=== PATIENT | male | born 1960 | race Caucasian/White ===

== ENCOUNTER 2019-01-13 21:49 | Inpatient (IN) ==
[2019-01-13] MEDS ORDERED: PROTONIX IV ONE (21:58)
[2019-01-13] MEDS ORDERED: NS 1,000 ML IV ONE (21:58)
[2019-01-13] MEDS ORDERED: SODIUM CHLORIDE 0.9% INJ ONE (21:58)
[2019-01-13 22:34] LABS: INR 3.01; PROTIME 32.1 Seconds (11.0-16.0); PTT 30.1 Seconds (22.3-41.8)
[2019-01-13 22:38] LABS: BASO# 0.27 X1000 (0.0-0.2); BASO% 0.7 % (0.0-0.8); EOS# 0.11 X1000 (0.0-0.7); EOS% 0.3 % (0.0-10.0); HEMATOCRIT 15.5 % (42.0-52.0); IMM GRAN# 2.46 X1000 (0.0-0.04); IMM GRAN% 6.6 % (0.0-0.5); LYMPH# 8.42 X1000 (1.2-3.4); LYMPH% 22.7 % (20.5-51.1); MCH 33.6 PG (27-31); MCHC 32.3 g/dL (33-37); MONO# 1.99 X1000 (0.11-0.59); MONO% 5.4 % (1.7-9.3); MPV 9.7 FL (7.4-10.4); NEUT# 23.87 X1000 (1.4-6.5); NEUT% 64.3 % (42.2-75.2); PLT 528 X1000 (130-400); RBC 1.49 XMIL (4.7-6.1); RDW 14.6 % (11.5-14.5); WBC 37.12 X1000 (4.8-10.8)
[2019-01-13] MEDS: PROTONIX 80 MG in NS 80 ML IV SCH (22:50)
[2019-01-13 23:01] LABS: ALB/GLOB RATIO 1.9; CALCIUM 7.9 mg/dL (8.8-10.2); CREATININE 2.1 mg/dL (0.7-1.2); TOTAL BILIRUBIN 0.64 mg/dL (0.20-1.00); TOTAL PROTEIN 4.6 g/dL (6.3-8.3)
[2019-01-13 23:03] LABS: POTASSIUM 6.7 mmol/L (3.5-5.1)
[2019-01-13] MEDS ORDERED: HUMULIN R SUBQ ONE (23:07)
[2019-01-13] MEDS ORDERED: SODIUM BICARBONATE 8.4% IV ONE (23:20)
[2019-01-13] MEDS ORDERED: ZOSYN 3.375 GM in NS 50 ML IV ONE (23:22)
[2019-01-13] MEDS ORDERED: VANCOMYCIN 1 GM/NS 1 GM/250 ML IVPB IV ONE (23:22)
--- NOTE | 2019-01-13 23:40 | PROVIDER DOCUMENTATION ---
This chart was entered by Yennifer Malik Scribe, acting as scribe for Lei Cobb MD. HPI-General Adult - General Chief Complaint: GI Bleed Stated Complaint: GI bleed Time Seen by Provider: 01/13/19 21:56 Source: patient Allergies/Adverse Reactions: Patient Allergies Allergy/AdvReac Type Severity Reaction Status Date / Time heparin Allergy Unknown Verified 01/02/19 22:33 Home Medications: Home Medication List Medication Instructions Recorded Confirmed Last Taken Type Amlodipine Besylate 5 mg PO DAILY 01/02/19 01/02/19 Unknown History Aspirin [Adult Low Dose Aspirin EC] 81 mg PO DAILY 01/02/19 01/02/19 Unknown History Dapagliflozin Propanediol [Farxiga] 10 mg PO DAILY 01/02/19 01/02/19 Unknown History Fenofibrate 54 mg PO DAILY 01/02/19 01/02/19 Unknown History Hydrocodone/Acetaminophen [[place] 1 ea PO TID #6 tab 01/02/19 Unknown Rx 5-325 Tablet] Ketorolac [Toradol] 10 mg PO Q6H PRN PRN #20 tab 01/02/19 Unknown Rx LISINOpril [Prinivil] 20 mg PO DAILY 01/02/19 01/02/19 Unknown History Metformin HCl [Metformin HCl ER] 500 mg PO 4XDAY 01/02/19 01/02/19 Unknown History [place]-3 Fatty Acids/Fish Oil [Fish 1,000 mg PO BID 01/02/19 01/02/19 Unknown History Oil 1,000 mg Capsule] Simvastatin 40 mg PO DAILY 01/02/19 01/02/19 Unknown History Warfarin [Coumadin] 3 mg PO BID 01/02/19 01/02/19 Unknown History - History of Present Illness -Gen Adult Nature of Presenting Problems: pt is a a 58 yr old male presenting via EMS from home, pt reports dark stool x 5 days, increasing weakness and shortness of breath. pt denies prior GI bleed, admits he is currently taking warfarin and ASA daily. EMS reports low Sp02 sat en route Location of Pain/Injury: reports: none Pain Radiation: reports: no radiation Quality of Pain: reports: none Severity: reports: moderate Onset/Duration: reports: 5 days ago Timing: reports: getting worse Context/Activities at Onset: reports: light activity Modifying Factors: improves with: nothing Associated Symptoms: reports: dizziness, fatigue, shortness of breath, weakness, other (dark stools). denies: fever/chills Similar Symptoms Previously?: No Recently seen or treated by another doctor?: Yes Review of Systems - Adult - REVIEW OF SYSTEMS - ADULT Constitutional: reports: fatimigel. denies: chills, fever Eyes: reports: no symptoms reported Ears, Nose, Mouth & Throat: reports: no symptoms reported Cardiovascular: reports: no symptoms reported Respiratory: reports: dyspnea on exertion, shortness of breath Gastrointestinal: reports: rectal bleeding Genitourinary: reports: no symptoms reported Musculoskeletal: reports: no symptoms reported Integumentary: reports: no symptoms reported Neurological: reports: dizziness/vertigo. denies: headache/migraines, syncope Psychiatric: reports: no symptoms reported Endocrine: reports: no symptoms reported Hematologic/Lymphatic: reports: no symptoms reported Allergic/Immunologic: reports: no symptoms reported All Other Systems: Reviewed and Negative Past History - Adult - PAST MEDICAL HISTORY-ADULT Review of Records: reports: Old Records Reviewed, Nursing Assessment Review, Medications Reviewed, Social history reviewed & non-contributory. Major Childhood Illnesses: reports: denies history Cardiovascular: reports: denies history Respiratory: reports: denies history Gastrointestinal: reports: denies history Obstetrical/Gynecological: reports: denies history Genitourinary: reports: denies history Musculoskeletal: reports: denies history Neurological: reports: denies history Endocrine/Immune: reports: denies history Other Conditions: reports: denies history - IMMUNIZATION STATUS Childhood Immunizations: See Nurse Assessment Flu Vaccine: See Nurse Assessment - FAMILY HISTORY Family History: reviewed, not pertinent - SOCIAL HISTORY Smoking: denies Substance Use: alcohol Alcohol Use Frequency: twice a week Living Situation: family Physical Exam-General - PHYSICAL EXAM-ADULT Initial Vital Signs Reviewed: Yes - CONSTITUTIONAL General Appearance: moderate distress, obese, lethargic, slow to respond - EYES Eyes: PERRL/EOMI, pale conjunctivae - HEAD, EARS, NOSE, MOUTH & THROAT HENMT: normocephalic/atraumatic, moist mucous membranes - NECK Neck: non-tender, supple - RESPIRATORY Respiratory: lungs clear, normal breath sounds, increased rate - CARDIOVASCULAR Cardiovascular: normal peripheral pulses, regular rate, rhythm - LYMPHATIC Lymphatic: no adenopathy - MUSCULOSKELETAL Back Exam: normal inspection Extremity: normal range of motion, non-tender, normal inspection - SKIN Integumentary: normal turgor, diaphoresis, pallor - NEUROLOGIC Neurologic: grossly normal, no motor/sensory deficits - PSYCHIATRIC Psych/Mental Status: normal mood/affect, normal thought content, normal thought process, oriented x 3 Progress - PLAN OF CARE/RESULTS Result Diagrams: 01/13/19 22:02 01/13/19 22:02 - EKG 1 Time of EKG reading by physician:: 22:04 EKG Read and Signed by:: Lei Cobb EKG Interpretation (*Must complete 3 of following elements*): Abnormal Rate: 89 Rhythm: nsr [place]: normal QRS: other (abnormal QRS-T angle, consider primary T wave abnormality) Departure - Departure Date of Disposition Decision: 01/13/19 Time of Disposition Decision: 23:36 DIAGNOSIS: JUDAH (acute kidney injury) GI bleed Qualifiers: GI bleed type/associated pathology: melena Qualified Code(s): K92.1 - Melena Anemia Qualifiers: Anemia type: unspecified type Qualified Code(s): D64.9 - Anemia, unspecified DKA (diabetic ketoacidoses) Qualifiers: Diabetes mellitus type: type 2 Diabetes mellitus complication detail: without coma Qualified Code(s): E11.10 - Type 2 diabetes mellitus with ketoacidosis without coma Disposition: ADMITTED INPATIENT 09 Certified Medical Emergency: Emergent Condition: Critical - Critical Care Note This patient required my direct & personal management of CC.: Yes Total Time (mins): 35 Critical Care Statement: This patient required my direct personal management to treat or rule out processes, the absence of which, could potentiallly result in sudden, clinically significant life or limb threatening deterioration. Attestation - Physician/ LEOBARDO Attestation Patient care was provided by Advanced Practice Provider:: No The physician spent face to face time with patient:: Yes Advanced Practice Provider documentation review:: Supervising physician onsite and consulted in the evaluation and care of this patient. The physician did have a face to face encounter with the patient. This chart was documented by the indicated scribe, (Yennifer Malik Scribe) and accurately reflects the services I performed and decisions made by me, Lei Cobb MD, as attested by the provider's signature.
[2019-01-13] MEDS ORDERED: NS 1,000 ML ONE (23:44)
[2019-01-14 00:06] LABS: ACETONE SERUM NEGATIVE (NEGATIVE)
[2019-01-14 00:07] LABS: PHOSPHORUS 9.7 mg/dL (2.7-4.5)
[2019-01-14 00:15] LABS: ALLEN TEST YES; BLOOD TYPE ARTERIAL; METHB 0.8 % (0.0-1.5); O2(CT) 8.5 mL/dL (15.0-23.0); O2HB 95.1 % (95.0-99.0); PCO2(98.6) 27 mmHg (35-45); PO2(98.6) 139 mmHg (60-100); SAMPLE BLOOD; SAO2 98.4 % (95.0-100.0); THB 6.1 g/dL (11.5-17.4)
[2019-01-14 00:19] LABS: LACTATE > 20.00 mmoll (0.44-2.22); MODALITY CANNULA; pH(98.6) < 6.80 (7.35-7.45)
[2019-01-14] MEDS ORDERED: CALCIUM GLUCONATE 1 GM in NS 50 ML IV ONE (01:00)
[2019-01-14] MEDS ORDERED: ALBUTEROL 0.5% INH CONC FOR HYPERKALEMIA INH ONE ×2 (01:01→09:47)
[2019-01-14 01:13] LABS: URINE SOURCE CATH
[2019-01-14 01:17] LABS: BILIRUBIN URINE NEGATIVE (NEGATIVE); BLOOD URINE NEGATIVE (NEGATIVE); COLOR YELLOW; GLUCOSE URINE >1000 mg/dL (NEGATIVE); KETONE URINE NEGATIVE (NEGATIVE); LEUKOCYTES URINE NEGATIVE (NEGATIVE); NITRITE URINE NEGATIVE (NEGATIVE); PH URINE 5.5; PROTEIN URINE NEGATIVE (NEGATIVE); SP GRAVITY URINE 1.021; TURBIDITY URINE CLEAR (CLEAR); UROBILINOGEN URINE NORMAL (NORMAL)
[2019-01-14 01:18] LABS: UR EPITHELIAL CELLS <10 /HPF (<10); URINE BACTERIA NEGATIVE /HPF; URINE RBC <10 /HPF (<10); URINE WBC <10 /HPF (<10)
[2019-01-14] MEDS ORDERED: VITAMIN K 5 MG in NS 50 ML IV ONE (01:25)
[2019-01-14] MEDS ORDERED: NS 1,000 ML IV SCH (01:26)
[2019-01-14] MEDS: LEVOPHED 8 MG in D5 1/2 NS 250 ML IV SCH ×3 (01:39→14:26)
[2019-01-14 01:56] LABS: UR AMPHETAMINES QUAL NONE DETECTED (NONE DETECT); UR BARBITUATES QUAL NONE DETECTED (NONE DETECT); UR BENZODIAZEPIN QUAL NONE DETECTED (NONE DETECT); UR CANNABINOIDS QUAL NONE DETECTED (NONE DETECT); UR COCAINE QUAL NONE DETECTED (NONE DETECT); UR METHADONE QUAL NONE DETECTED (NONE DETECT); UR OPIATES QUAL NONE DETECTED (NONE DETECT); UR OXYCODONE QUAL NONE DETECTED (NONE DETECT); UR PCP QUAL NONE DETECTED (NONE DETECT)
[2019-01-14] MEDS ORDERED: HUMULIN R IV ONE (02:12)
[2019-01-14] MEDS ORDERED: TYLENOL PR PRN (02:12)
[2019-01-14] MEDS ORDERED: SODIUM BICARBONATE 8.4% 100 MEQ in STERILE WATER INJ. 500 ML IV PRN (02:12)
[2019-01-14] MEDS ORDERED: MAGNESIUM SULFATE 2 GM/S.W.I. 2 GM/50 ML IVPB IV PRN (02:12)
[2019-01-14] MEDS ORDERED: D50W SYRINGE IV PRN (02:12)
[2019-01-14] MEDS ORDERED: VANCOMYCIN IV PER PHARMACY MISC SCH (02:12)
[2019-01-14] MEDS ORDERED: D5 NS 1,000 ML IV PRN (02:12)
[2019-01-14] MEDS: HUMULIN R 100 UNIT in NS 100 ML IV SCH ×4 (04:46→17:43)
[2019-01-14] MEDS ORDERED: VANCOMYCIN 1 GM/NS 1 GM/250 ML IVPB IV ONE (05:30)
[2019-01-14] MEDS ORDERED: NS 250 ML ONE (05:49)
[2019-01-14 06:12] LABS: ALLEN TEST YES; BE -21.8 mmoll (-3.0-3.0); BLOOD TYPE ARTERIAL; HCO3-(ACT) 7.9 mmoll (20.0-26.0); METHB 1.5 % (0.0-1.5); O2HB 96.2 % (95.0-99.0); PCO2(98.6) 21 mmHg (35-45); PO2(98.6) 189 mmHg (60-100); SAMPLE BLOOD; SAO2 99.9 % (95.0-100.0); THB 6.3 g/dL (11.5-17.4)
[2019-01-14 06:13] LABS: MODALITY BI PAP; pH(98.6) 7.08 (7.35-7.45)
[2019-01-14] MEDS ORDERED: ZOSYN 3.375 GM in NS 50 ML IV SCH (06:15)
[2019-01-14 06:50] LABS: HEMATOCRIT 17.6 % (42.0-52.0); HEMOGLOBIN 6.4 g/dL (14.0-18.0); MCH 37.9 PG (27-31); MCHC 36.4 g/dL (33-37); MCV 104.1 FL (81-99); PLT 333 X1000 (130-400); RBC 1.69 XMIL (4.7-6.1); RDW 14.3 % (11.5-14.5); WBC 50.67 X1000 (4.8-10.8)
--- NOTE | 2019-01-14 07:03 | Diag Imaging Result Doc PS360 ---
EXAM: CHEST-1 VIEW 01/13/2019 HISTORY: SEPSIS PROTOCOL TECHNIQUE: AP portable at 2323 COMMENT: The inspiration is somewhat suboptimal. There is blunting of the right costophrenic angle which was also present on 04/18/2015 and is presumably due to fibrosis. There is some questionable basilar atelectasis on the right. Otherwise the appearance of the chest has not changed significantly. IMPRESSION: Right lower lobe subsegmental atelectasis. Electronically signed by Isidoro Blevins 01/14/2019 7:01 AM
--- NOTE | 2019-01-14 07:05 | Diag Imaging Result Doc PS360 ---
EXAM: CHEST-1 VIEW 01/14/2019 HISTORY: central line confirmation TECHNIQUE: AP portable at 0315 COMMENT: The inspiration is suboptimal. The appearance of the chest has not changed significantly since 01/13/2019. There is a left internal jugular central venous catheter with its tip in the superior vena cava. IMPRESSION: Stable chest. Electronically signed by Isidoro Blevins 01/14/2019 7:02 AM
[2019-01-14 07:08] LABS: LYMPHS 10 % (21-51); MONO 2 % (1-9); SEGS 82 % (42-75)
--- NOTE | 2019-01-14 07:18 | EKG Report ---
Test Performed on : 01/13/2019 10:04:39 PM Test Reason : ED. NO EKG ORDER FOR MUSE Blood Pressure : / mmHG Vent. Rate : 089 BPM Atrial Rate : 089 BPM P-R Int : 164 ms QRS Dur : 100 ms QT Int : 352 ms P-R-T Axes : 050 058 -09 degrees QTc Int : 428 ms Normal sinus rhythm. Abnormal QRS-T angle, consider primary T wave abnormality Abnormal ECG No previous ECGs available Unconfirmed Result
[2019-01-14] MEDS: PROTONIX 80 MG in NS 80 ML IV SCH ×2 (08:21→17:43)
[2019-01-14 09:04] LABS: INR 2.24; PROTIME 25.4 Seconds (11.0-16.0)
[2019-01-14] MEDS ORDERED: NS 500 ML IV ONE (09:06)
--- NOTE | 2019-01-14 09:06 | HISTORY AND PHYSICAL ---
PRIMARY CARE PHYSICIAN: Dr. Michael Archuleta. CHIEF COMPLAINT: Dark blood in stools for the past 4 days. HISTORY OF PRESENTING ILLNESS: A 58-year-old male with a history of diabetes mellitus type 2, hyperlipidemia, hypertension, coronary disease, and chronic anticoagulation therapy with warfarin who had presented to the emergency department with 4 days history of having dark blood in stools. The patient states that he was getting weak and nauseated at this time. He also noted that his blood glucose was over 600. He was evaluated in the emergency department. He is found to be profoundly anemic and it was also suspected that he was in early DKA and possible sepsis. Due to his presenting symptoms he will require admission to ICU for further management. The patient is somewhat lethargic however he was answering questions. He had denied any headache, chest pain, shortness of breath or any weight changes but complained of dark blood and not feeling well. PAST MEDICAL HISTORY: Include diabetes mellitus type 2, hyperlipidemia, hypertension, coronary disease, chronic anticoagulation. PAST SURGICAL HISTORY: Femoral-femoral bypass, coronary stent. ALLERGIES TO: Heparin. CURRENT MEDICATIONS: Include warfarin 3 mg p.o. b.i.d., simvastatin 40 mg p.o. daily, metformin 500 mg 4 times a day, lisinopril 20 mg p.o. daily, fenofibrate 54 mcg p.o. daily, aspirin 81 mg p.o. daily, Norvasc 5 mg p.o. daily. SOCIAL HISTORY: No history of smoking, alcohol or illicit drug use. FAMILY HISTORY: No history of coronary disease. REVIEW OF SYSTEMS: Fourteen point review of systems is as in HPI. Other systems negative. PHYSICAL EXAMINATION: GENERAL: Cooperative, friendly male. He iss resting more comfortably now. However he seems lethargic. VITAL SIGNS: Temperature 94.4 degrees, pulse 92, respirations 26, blood pressure 89/44. HEENT: Atraumatic, normocephalic. Extraocular movements intact. PERRLA. NECK: No masses. CHEST: Clear to auscultation. CARDIOVASCULAR: Regular rate and rhythm. ABDOMEN: Soft, positive bowel sounds. EXTREMITIES: Trace edema. NEUROLOGIC: He is awake, alert, oriented x2. : No bladder distention. SKIN: Warm. LABORATORIES AND STUDIES: WBC 37.12 hemoglobin 5.1, hematocrit 15.5, platelets 528,000. INR 3.0. Blood gases shows pH of 6.80. Lactate 20. Sodium 127, potassium 6.7, chloride 85, CO2 is 9, BUN is 83, creatinine is 2.1, glucose is 658. ASSESSMENT: This is a 58-year-old male with a history of diabetes mellitus type 2, hyperlipidemia, hypertension, coronary disease, and chronic anticoagulation therapy who had presented to emergency department with 4 days history of having dark blood. The patient states that he was also nauseated during this time, and was having elevated blood glucose. He was evaluated in the emergency department. He was found to be profoundly anemic and also is suspected he was possibly in early DKA and sepsis due to these findings, he will require ICU admission for further management. 1. Probable upper gastrointestinal bleed. 2. Chronic anticoagulation therapy. 3. Diabetes mellitus type 2 with hyperglycemia with suspected early diabetic ketoacidosis. 4. Possible sepsis. 5. Hyperkalemia. 6. Coronary artery disease. PLAN: 1. We will admit patient to ICU. 2. We will keep patient NPO. Continue patient on a PPI. 3. We will give patient 2 units of fresh frozen plasma. 4. We will also start him on blood transfusion. 5. We will consult Gastroenterology. 6. We will put patient on insulin drip per DKA protocol. 7. We will check blood cultures, urine cultures. Start patient on IV antibiotics. 8. The patient was treated with calcium gluconate and albuterol nebs in the EMERGENCY DEPARTMENT. Will monitor his potassium. 9. The patient's condition is guarded. 10. We will put him on DVT prophylaxis with SCDs. 11. We will continue to follow and reassess. Make further recommendation based on his clinical course. cc: Chris Raman MD
[2019-01-14] MEDS ORDERED: SODIUM BICARBONATE 8.4% 150 MEQ in STERILE WATER INJ. 1,000 ML IV SCH (09:15)
[2019-01-14] MEDS ORDERED: VITAMIN K SUBQ ONE (09:15)
[2019-01-14 09:40] LABS: ALB/GLOB RATIO 1.8; ALBUMIN 3.1 g/dL (3.5-5.0); CALCIUM 7.3 mg/dL (8.8-10.2); CREATININE 2.8 mg/dL (0.7-1.2); MAGNESIUM 2.2 mg/dL (1.5-2.7); PHOSPHORUS 7.7 mg/dL (2.7-4.5); TOTAL BILIRUBIN 0.48 mg/dL (0.20-1.00); TOTAL PROTEIN 4.8 g/dL (6.3-8.3)
[2019-01-14 09:43] LABS: POTASSIUM 6.5 mmol/L (3.5-5.1)
[2019-01-14] MEDS: NS 1,000 ML IV SCH ×2 (09:43→16:47)
[2019-01-14] MEDS ORDERED: CALCIUM GLUCONATE 4.65 MEQ in NS 50 ML IV ONE (09:46)
[2019-01-14] MEDS ORDERED: MARCAINE 0.25% PF/EPI 1:200,000 ONE (10:31)
[2019-01-14] MEDS ORDERED: LR 0 ML ONE (10:31)
[2019-01-14] MEDS: SODIUM BICARBONATE 8.4% 150 MEQ in STERILE WATER INJ. 1,000 ML IV SCH (10:59)
[2019-01-14] MEDS ORDERED: AMIDATE ONE (10:59)
[2019-01-14] MEDS ORDERED: ZEMURON ONE (11:26)
[2019-01-14] MEDS ORDERED: VERSED ONE ×3 (11:34→12:23)
--- NOTE | 2019-01-14 11:56 | PROVIDER PROGRESS NOTE ---
Progress Note Chief complaint: I started having dark stools. HPI: Mr. Vergara is a 58-year-old white male with a past medical history of type two diabetes, hyperlipidemia, hypertension, coronary artery disease requiring bypass and stents and takes Coumadin and aspirin daily. On January 02 he fell while playing in the yard with his granddaughter. He had extreme pain to his left leg for which he went to the emergency department. He was sent home on pain medication and a non-steroidal. Home medications indicate it was toradol and [place]-5. Approximately four days later he developed dark tarry stools and extremely elevated blood sugars. He went to his primary, Dr. Michael Archuleta, on that following January 06. He was told to stop taking the medicines given in the ED and just use rest/ice for his left leg pain. His symptoms progressed to dizziness, weakness, and shortness of breath on top of the dark stools and elevated blood sugars that led him to come to the ED last night. His presenting blood sugar was 658, Potassium 6.7, Creatinine 2.1, hemoglobin 5, and WBC 37. He was given calcium gluconate and albuterol nebulizer treatments in the ED. Past medical history: diabetes mellitus type two, hyperlipidemia, hypertension, coronary artery to say is, chronic anticoagulation therapy. Past surgical history: femoral bypass, coronary stents. Social history: patient lives with his , denies any alcohol, tobacco, or illicit drug use. Family history: noncontributory. Allergies: Heparin Home medications: Amlodipine, aspirin, farxiga,fenofibrate,lisinopril, Metformin, fish oil, Simvastatin, warfarin. Review of systems: neurological: denies altered mental status or confusion. Admits to dizziness. Eyes: denies blurriness, dryness, or change in visual acuity. ENT: denies tinnitus or change in hearing. Integumentary: denies any erythema, rash, or itching. Respiratory: admits to shortness of breath. Denies orthopnea or cough. Cardiovascular: denies palpitations or chest pain. G.I.: Admits to nausea without vomiting, admits to black tarry stool and abdominal pain. : admits to increased flow, no change in color or odor. Endocrine: Admits to excessive thirst and hunger. Musculoskeletal: admits to increased weakness. Admits to left lower extremity pain. Labs: WBC 50, hemoglobin 6.4, hematocrit 17.6, platelet count 333, PT 25.4, sodium 133, potassium 6.5, chloride 96, carbon dioxide 13, BUN 97, creatinine 2.8, glucose 640, AST 1353, ALT 957, total protein 4.8, plasma lactate 19.8 Urinalysis: >1000 glucose, negative acetone. ABG: pH 7.08, PC02 21, P02 189, HCO3 7.9, lactate 12.3 on CPAP 40%. Imaging: chest x-ray impression right lower lobe subsegmental atelectasis. Physical Exam: temperature 99.1, pulse 113, respirations 26, blood pressure 103/50, 02 sat 100% on Venturi mask. General: Ill appearing, drowsy, white male lying in bed in no acute distress HEENT: Normocephalic, atraumatic. Trachea midline. Pale conjunctiva. Pupils equal and reactive to light. Mucous membranes dry. Skin: warm and dry. Neck: Supple, 6 cm JVD appreciated. Cardiovascular: S1S2, tachycardia rate and rhythm. No murmur or gallop noted. Respiratory: clear to auscultation anteriorly with equal air excursion. Abdomen: soft, obese, tenderness noted the upper middle portion of his abdomen. No bowel sounds auscultated. : non-inspected. Extremities: no clubbing or cyanosis. 1+ pitting edema to the left lower extremity on injured leg. Neurological: drowsy and oriented to person, place, and general time. Assessment and plan: Acute kidney injury. JUDAH vs prerenal state. He likely has a GI bleed and possible ischemic bowel, possible acute pancreatitis. Will perform renal u/s, urine studies. Agree with volume resuscitation. Acidosis. Concern for metformin intoxication given severe lactic acidosis. If not improving, will need dialysis. Blood pressure. Currently getting levophed to maintain MAP. Anemia. Orders for PRBC and FFP in place. Metabolic acidosis. Likely because of G.I. illness. Acetone level is negative. He is receiving sodium bicarbonate IV. Will repeat acetone level. Hyperkalemia. He is on an insulin drip and has albuterol ordered. Will purge gut if appropriate. Acute pancreatitis. Surgery and GI on board. Volume status. Euvolemic on exam. Medication review. Continue to hold nephrotoxic agents. He is on an insulin gtt and albuterol nebulizers.
--- NOTE | 2019-01-14 12:28 | PROGRESS NOTE ---
DATE: 01/14/2019 SUBJECTIVE: This patient is lying in bed. He is complaining of abdominal pain and generalized weakness. He is still having some dry cough. As per the patient, he has been having black stools with some liquid bowel movements for the past 5 days or so. As per the who is at the bedside, this patient also was complaining of generalized weakness and dizziness at home. Apparently, yesterday, he started having also some confusion so she decided to bring him to the emergency department. His white blood cell count was elevated at 37.1 upon admission and now it is 50. His hemoglobin improved after 1 PRBC from 5 to 6.4 and is pending more PRBCs. His INR is elevated and he is getting some FFP. Also, he received vitamin K. He received 5 of vitamin K yesterday. I will give him 5 more. Blood sugar is really elevated. High white blood cell count, abdominal pain, lactic acidosis is really high at 19.8. He is having hypoxemic respiratory failure. He does have a history of peripheral vascular disease and actually he had 2 femorals bypasses placed before. This information has been provided by the . We are asking for records. There is a really high possibility of ischemic colitis on this patient. Gastroenterology department has been consulted and they have evaluated this patient already. I will continue with antibiotics. I will stop the vancomycin. I will continue only with Zosyn which I believe is going to cover his abdominal problem. I will continue with transfusions and FFPs as well. This patient is remarkably sick. OBJECTIVE: Vital Signs: Temperature 98.8 degrees, pulse 104, respiratory rate 28, blood pressure 89/39, oxygen saturation 100% on the Venturi mask at this moment. HEENT: Head normocephalic. No trauma. PERRLA. Neck: Supple. No JVD. No masses. Central trachea. Chest: Decreased breath sounds globally with coarse sounds. Abdomen: Soft. Slightly distended. Generalized tenderness to palpation. He does have some positive sounds. His abdomen is tender, mostly at the level of the upper abdomen and left area. Extremities: No edema, no clubbing, no cyanosis. Neurological Examination: The patient is awake. He is alert. He is following commands. He is answering my questions. Laboratory: WBCs 50.6, hemoglobin 6.4, hematocrit 17.6, platelets 333,000. CMP from yesterday pending. Lab work today, sodium 127, potassium 6.7, chloride 85, bicarbonate 9, BUN 83, creatinine 2.1, glucose 658, calcium 7.9, magnesium 2.6, albumin 3. Lipase is elevated at 173 and plasma lactate today is 19.8. Urinalysis showed glucose. PT 25.4, INR 2.24. ASSESSMENT AND PLAN: 1. Septic shock. This patient has been placed on antibiotics. He is on vasopressors, fluids as well. I will add bicarbonate drip since this patient's bicarb level is really low. I will continue to monitor this patient in the intensive care unit. 2. Metabolic acidosis due to septic shock, acute kidney injury. His bicarbonate level on the arterial blood gases today in the morning was 7.9. I have placed this patient on the bicarbonate drip, pending CMP today. I will monitor this patient closely. 3. Possible ischemic colitis. I do believe this is the source of the problem. He has been having black stools for the past 5 days and abdominal pain as well. He has a past medical history of arterial disease. Actually, he had, apparently, some femoral bypass done before. Surgery department will be consulted. We have not done any kind of images because this patient is on pressors, Ventimask, and drips, and he is unstable but probably, we need to get it. He is also having acute kidney injury but we do not have any records from previous kidney function before. 4. Hyperglycemic state. He has been placed on an insulin drip. We will continue with the same management for now. 5. Hyperkalemia. I do not have a new potassium level today. I asked for a CMP, pending results. I will monitor. 6. Hyponatremia, likely secondary to increase of his blood sugar. This is likely pseudohyponatremia but we will monitor anyway. 7. Gastrointestinal bleed, likely secondary to ischemic colitis. This patient has been on warfarin for at least 5 or 6 years and, on top of that, aspirin. Both have been stopped. He has been getting fresh frozen plasma. This is likely due to ischemic colitis. 8. History of coronary artery disease. No chest pain at this moment. 9. Acute hypoxemic respiratory failure with multiorgan failure. We will continue with oxygen supplementation. He used to be on a BiPAP machine. Now, he is on a Ventimask. We will continue to monitor. I have requested an evaluation by the pulmonary department. 10. Chronic anticoagulation. His INR has been therapeutic but we need to decrease it. He is getting fresh frozen plasma and also vitamin K. 11. I discussed with the patient and the at the bedside his advanced directives. We discussed this for about 15 minutes. Also, while I was checking the patient and making the orders, I spent on my evaluation around 45 minutes. He has decided to be Full Code. 12. Critical care time, 45 minutes plus 50 minutes of advance directive. 13. This patient seems to be remarkably sick. I notified this to the patient and also to the . Gastroenterology department, pulmonary department, nephrology department, and surgery department on board. cc: Venkatesh Duffy MD
[2019-01-14 12:36] LABS: HEMATOCRIT 21.7 % (42.0-52.0); HEMOGLOBIN 7.2 g/dL (14.0-18.0); MCH 31.7 PG (27-31); MCHC 33.2 g/dL (33-37); MCV 95.6 FL (81-99); MPV 9.6 FL (7.4-10.4); RBC 2.27 XMIL (4.7-6.1); RDW 13.9 % (11.5-14.5); WBC 29.57 X1000 (4.8-10.8)
[2019-01-14 12:38] LABS: INR 1.92; PROTIME 22.5 Seconds (11.0-16.0)
[2019-01-14 12:39] LABS: PTT 30.4 Seconds (22.3-41.8)
[2019-01-14 13:01] LABS: ALB/GLOB RATIO 2.1; ALBUMIN 3.1 g/dL (3.5-5.0); CALCIUM 7.1 mg/dL (8.8-10.2); CREATININE 3.3 mg/dL (0.7-1.2); POTASSIUM 4.6 mmol/L (3.5-5.1); TOTAL BILIRUBIN 0.34 mg/dL (0.20-1.00); TOTAL PROTEIN 4.6 g/dL (6.3-8.3)
[2019-01-14] MEDS: SORBITOL PO SCH ×2 (13:37→18:16)
--- NOTE | 2019-01-14 13:44 | Diag Imaging Result Doc PS360 ---
EXAM: CHEST-PORTABLE 01/14/2019 HISTORY: tube placement TECHNIQUE: AP portable chest and abdomen at 1326 COMMENT: There is an endotracheal tube with its tip just below the thoracic inlet and a NG tube with its tip coiled in the stomach. The inspiration is suboptimal. There is ill-defined opacity over the left lower lobe which has worsened since 01/14/2019 at 0315. There is gas throughout much of the small bowel with dilatation. There is a possibility of colonic gas. IMPRESSION: NG tube in the stomach. Atelectasis versus pneumonia left lower lobe. Ileus versus partial small bowel obstruction. Electronically signed by Isidoro Blevins 01/14/2019 1:41 PM
[2019-01-14] MEDS: ZOSYN 3.375 GM in NS 50 ML IV SCH ×2 (13:48→20:54)
[2019-01-14 13:57] LABS: ALLEN TEST NO; BE -10.8 mmoll (-3.0-3.0); BLOOD TYPE ARTERIAL; HCO3-(ACT) 16.5 mmoll (20.0-26.0); O2(CT) 12.5 mL/dL (15.0-23.0); O2HB 96.9 % (95.0-99.0); PO2(98.6) 332 mmHg (60-100); SAMPLE BLOOD; SRATE 12 BPM; THB 8.5 g/dL (11.5-17.4); TVOL 500 mL
[2019-01-14 14:02] LABS: MODALITY VENTILATOR
[2019-01-14] MEDS: ATIVAN IV PRN ×2 (14:02→17:11)
[2019-01-14] MEDS: MORPHINE IV PRN ×2 (14:02→23:52)
[2019-01-14 14:04] LABS: PCO2(98.6) 52 mmHg (35-45); pH(98.6) 7.14 (7.35-7.45)
[2019-01-14 15:07] LABS: ALLEN TEST NO; BE -8.9 mmoll (-3.0-3.0); BLOOD TYPE ARTERIAL; METHB 1.4 % (0.0-1.5); O2(CT) 11.3 mL/dL (15.0-23.0); O2HB 96.1 % (95.0-99.0); PCO2(98.6) 43 mmHg (35-45); PO2(98.6) 141 mmHg (60-100); SAMPLE BLOOD; SAO2 99.2 % (95.0-100.0); SRATE 18 BPM; THB 8.1 g/dL (11.5-17.4); TVOL 500 mL; pH(98.6) 7.23 (7.35-7.45)
[2019-01-14 15:12] LABS: MODALITY VENTILATOR
--- NOTE | 2019-01-14 17:16 | Diag Imaging Result Doc PS360 ---
EXAM: US RENAL 2 (RETROPER) COMPLETE - 01/14/2019 HISTORY: decreased renal function TECHNIQUE: Bilateral renal ultrasound COMPARISON: None. FINDINGS: The right kidney measures 11.4 x 5.6 x 6.7 cm in size, and has cortical thickness of approximately 1.3 cm. The left kidney measures 11.2 x 6.8 x 6.6 cm in size, increased cortical thickness of approximately 1.3 cm. There is a questionable 0.8 cm right renal cyst. There is no solid renal mass, stone, or hydronephrosis identified. There is an echogenic structure which presumably represents [place] catheter in urinary bladder. Otherwise, there is no urinary bladder lesion identified. IMPRESSION: Questionable tiny right renal cyst. No other visible renal abnormality. No hydronephrosis. Electronically signed by Shad Buckley 01/14/2019 5:14 PM
[2019-01-14 17:26] LABS: URINE SOURCE CATH
[2019-01-14 17:34] LABS: BILIRUBIN URINE NEGATIVE (NEGATIVE); BLOOD URINE MODERATE (NEGATIVE); COLOR YELLOW; GLUCOSE URINE >1000 mg/dL (NEGATIVE); KETONE URINE NEGATIVE (NEGATIVE); LEUKOCYTES URINE NEGATIVE (NEGATIVE); NITRITE URINE NEGATIVE (NEGATIVE); PH URINE 5.5; PROTEIN URINE TRACE mg/dL (NEGATIVE); SP GRAVITY URINE 1.014; TURBIDITY URINE HAZY (CLEAR); UROBILINOGEN URINE NORMAL (NORMAL)
[2019-01-14 17:37] LABS: UR EPITHELIAL CELLS <10 /HPF (<10); URINE BACTERIA NEGATIVE /HPF; URINE RBC 20-40 /HPF (<10); URINE WBC <10 /HPF (<10)
[2019-01-14 17:43] LABS: UR CREAT RANDOM 46.4 mg/dL (14-26)
[2019-01-14 18:00] LABS: URINE CASTS NONE SEEN; URINE CRYSTALS NONE SEEN; URINE SMALL ROUND CELLS TRANS PRESENT; URINE YEAST NONE SEEN
[2019-01-14 18:34] LABS: HEMATOCRIT 21.5 % (42.0-52.0); HEMOGLOBIN 7.6 g/dL (14.0-18.0)
--- NOTE | 2019-01-14 18:47 | GENERAL SURGERY CONSULTATION ---
DATE: 01/14/2019 REQUESTING PHYSICIAN: Dr. Olson and Dr. Moody. REASON FOR CONSULT: Ischemic bowel. HISTORY OF PRESENT ILLNESS: A 58-year-old gentleman, with a history of diabetes mellitus type 2, hyperlipidemia, hypertension, coronary artery disease, chronic anticoagulation therapy on warfarin, and previous fem-fem bypass, presenting with a several day history of abdominal pain and dark tarry stool for 4 days. He came to the emergency department for getting nauseated and weak and with abdominal pain. He was noted to have a significant leukocytosis and possible DKA with sepsis, and several other electrolyte abnormalities. He has been admitted. His white blood cell count has continued to climb and his lactic acid has continued to increase, and there is some concern that he might have ischemic bowel given his abdominal pain and his overall presentation. Overall issue and underlying etiology have not been determined. He is not a candidate right now, given the fact he is on pressors and has acute kidney injury, to go get a CT scan. He is reporting abdominal pain. PAST MEDICAL HISTORY: 1. Diabetes mellitus type 2. 2. Hyperlipidemia. 3. Hypertension. 4. Coronary artery disease. 5. Chronic anticoagulation. PAST SURGICAL HISTORY: 1. Fem-fem bypass. 2. Coronary artery stents. ALLERGIES: Heparin. CURRENT MEDICATIONS: Of note, he had previously been on warfarin. The remainder of his list reviewed. SOCIAL HISTORY: No alcohol, tobacco, or illicit drugs. FAMILY HISTORY: No family history of coronary artery disease. REVIEW OF SYSTEMS: A full 14 systems were reviewed and negative except as specified in HPI. PHYSICAL EXAMINATION: Vital Signs: Patient is currently with temperature 97.2 degrees, pulse in the 100s, respiratory rate listed at 26, blood pressure 102/52 on Levophed. General: Chronically ill gentleman, looks stated age. HEENT: Normocephalic, atraumatic. Pupils equal, round, reactive to light. Mucous membranes moist. Oropharynx benign. Neck: Supple. Trachea midline. Cardiovascular: Sinus tachycardia. Lungs: Some coarse sounds. Abdomen: Soft, somewhat diffuse tenderness, but more tenderness in the right lower quadrant. Extremities: Moves all extremities. Neurologic: Grossly intact. Skin: No signs of jaundice. Vascular: All extremities perfused. LABORATORY: White blood cell count is 50, hematocrit 17, platelet count 333,000. INR 2.24. PH 7.08, base deficit 21, lactic acid 12.3. Sodium is 133, potassium is 6.5, glucose 640. Plasma lactate on a BMP is 19.8. IMAGING: Reviewed. ASSESSMENT AND PLAN: A 58-year-old gentleman with sepsis with end-organ injury, possibly related to intra-abdominal process and ischemic bowel. 1. Possible intra-abdominal process. At this time, given these findings and the concern, we will plan on diagnostic laparoscopy, possible exploratory laparotomy today. I discussed with the family the overall risks, benefits, and alternatives of the procedure, that he may remain on the ventilator, that we might not find anything intra-abdominally, that we may have to resect the bowel. This was all discussed with the family and the patient. They want to proceed. 2. Multiple electrolyte abnormalities and other underlying issues, to be managed by the hospitalist. There is a chance he remains on the ventilator after the procedure. cc: Jef Munoz MD
[2019-01-14] MEDS: ATIVAN 20 MG in NS 190 ML IV SCH (19:44)
--- NOTE | 2019-01-14 21:10 | OPERATIVE NOTE ---
PROCEDURE DATE: 01/14/2019 PREOPERATIVE DIAGNOSES: 1. Abdominal pain. 2. Gastrointestinal bleed. 3. Hypotension. 4. Possible ischemic bowel. 5. Diabetic ketoacidosis. 6. Sepsis with end-organ damage. POSTOPERATIVE DIAGNOSES: 1. Abdominal pain. 2. Gastrointestinal bleed. 3. Hypotension. 4. Possible ischemic bowel. 5. Diabetic ketoacidosis. 6. Sepsis with end-organ damage. 7. Gastric ulcer noted on esophagogastroduodenoscopy and old blood in the stomach with possible low-flow ischemia to the duodenum, not full thickness. PROCEDURE: Diagnostic laparoscopy. SURGEON: Jef Munoz MD SPRUE KNOCKER: None. ANESTHESIA: General tracheal. INTRAOPERATIVE FINDINGS: The small bowel that was visualized, which was the majority of the small bowel, appeared to be viable all the way to essentially the ligament of Treitz. The visualized portions of the colon were normal. We were able to visualize the descending colon and the splenic flexure and the cecum and ascending colon down to the rectum. There were the typical watershed areas. The stomach appeared to be viable. The liver appeared to be normal. All other parts of the abdomen appeared to be normal grossly. COMPLICATIONS: None at time of dictation. ESTIMATED BLOOD LOSS: 5 mL. SPECIMENS REMOVED: None. BRIEF HISTORY: A 58-year-old gentleman who was admitted with black tarry stools, hypotension, abdominal pain, GI bleed and potential for ischemic bowel given the elevated lactic acid. We had an extensive discussion with him and the family and they want to proceed with diagnostic laparoscopy. The risks, benefits, and alternatives were discussed. Risks included, but not limited to bleeding, infection, risk of on the operating room table, risk of not find anything intra-abdominally were discussed. They voiced understanding and wished to proceed with the procedure still knowing these risks. All questions were answered. DESCRIPTION OF PROCEDURE: After informed consent was obtained, the patient was brought to the operative theater, transferred to the operative table, placed supine position. General endotracheal anesthesia was then performed without complication. A formal time-out was then performed confirming patient, date, and procedure. All were in agreement. At that time, attention was given to the abdomen. We placed a supraumbilical incision and placed a 5 mm trocar using the Optiview technique. We then placed 3 more 5 mm trocars, 1 on each side of the abdomen and then 1 infraumbilically. We inflated the abdomen. I viewed the abdomen. About the time we started insufflating, anesthesia noted a significant amount of old blood coming out of his mouth. I had an intraoperative consult with Dr. Moody who had seen the patient previously and requesting him to come to do an EGD. While we waited for the EGD equipment and Dr. Moody to arrive, we ran the small bowel as best we could. His body habitus did make viewing the entire GI tract somewhat difficult, but we were able to view essentially from just distal to the ligament of Treitz down to the ileocecal valve. I was able to see the ascending colon and the descending colon, and parts of the splenic flexure. None of these bowels appeared to be ischemic from the serosal side. Appeared to have some old blood in the lumen that I could see. The omentum appeared viable. The mesentery appeared viable. The gallbladder and the liver appeared viable. The stomach appeared to be viable, but distended. I did not see any obvious pathology. At this time, Dr. Moody came into the operating room. He inserted the EGD scope. To see the full details of his dictation, please see his dictation. He did notice a ulcer on the greater curvature of the stomach that showed signs of potentially previously bleeding, but no active signs of bleeding. There was a significant amount of old blood noted in his stomach, which he suctioned out. He then inserted into the duodenum and saw a dusky looking duodenum. He suctioned out the blood. He took biopsies in the duodenum. It appeared to bleed from the mucosa suggesting at least some degree of flow. He evacuated all the old blood, cauterized the ulcer and removed the scope. I then reexamined back to the ligament of Treitz and did not see any signs of gross ischemia on the serosal side of the bowel. Given this and the thought that we might need to resuscitate him more for the GI bleed and correct his electrolyte abnormalities with his diabetic ketoacidosis, I elected not to converted to an exploratory laparotomy and elected to end my procedure and let us continue to monitor him and evaluate him. We removed all trocars, disconnected insufflation, and closed all skin incisions. The patient remained intubated, was still critical, and was transferred to the ICU. I updated Dr. Olson, who is the hospitalist seeing the patient. cc: Jef Munoz MD
[2019-01-14] MEDS: ZYVOX 600 MG/D5W 600 MG/300 ML IVPB IV SCH (22:41)
--- NOTE | 2019-01-14 23:30 | CONSULTATION ---
DATE OF CONSULTATION: 01/14/2019 REQUESTING PHYSICIAN: Venkatesh Duffy MD. REASON FOR CONSULTATION: Respiratory failure. HISTORY OF PRESENT ILLNESS: This is a 58-year-old male with a medical history of diabetes mellitus type 2, hyperlipidemia, hypertension, coronary artery disease, and chronic anticoagulation. He presented to the ER last night via EMS with dark stool for 5 days, worsening weakness and shortness of breath. Initial lab revealed significant leukocytosis with white blood cells 47.12; significant anemia with hemoglobin 5.0 and hematocrit 15.5; Elevated PT at 32.1; Electrolyte abnormality specifically with potassium 6.7; hypoglycemia with plasma glucose at 658; and acute kidney injury with BUN at 83 and creatinine at 2.1. Initial chest x-ray revealed right lower lobe subsegmental atelectasis. He has been admitted to the ICU with probable upper GI bleed, possible sepsis, hyperkalemia and hyperglycemia. He, apparently, underwent a GI surgery this morning although the formal surgical report has not been posted yet. The nurse reports he has gastric ulcer with about 2 L of blood aspirated during the procedure. He was sent back to the ICU intubated and sedated after the surgery. Currently, patient has been back from the operating room about 1/2 hour. His eyes are still covered with tape. He is on the insulin drip and Levophed drip. He is completely sedated and unresponsive to any verbal or physical stimuli. There is no family at the bedside. All other information is collected from the E-chart. PAST MEDICAL/SURGICAL HISTORY: 1. Diabetes mellitus type 2. 2. Hyperlipidemia. 3. Hypertension. 4. Coronary artery disease. 5. Chronic anticoagulation, apparently, taking warfarin and aspirin daily at home. 6. Status post femorofemoral bypass. 7. Status post coronary stent. SOCIAL HISTORY: Per H and P, the patient has no history of alcohol, tobacco, or illicit drug use. FAMILY HISTORY: Per H and P, no history of coronary disease. ALLERGIES: Heparin. REVIEW OF SYSTEMS: Unable to be obtained. PHYSICAL EXAMINATION: Vital Signs: Temperature 99.1 degrees, blood pressure 151/77, pulse 120, respiratory rate 24, oxygen saturation 100% on AC mechanical ventilator with spontaneous rate 12, FiO2 100%, tidal volume 500 and PEEP 5. General: Intubated and sedated. No acute distress noted. Eyes covered with tape bilaterally. Unresponsive to any verbal or physical stimuli. HEENT: Normocephalic. Trachea midline. ET tube in place. Mucus membrane pink and moist. Respiratory: Mechanical ventilated. Symmetrical excursion. Clear to auscultation bilaterally. Cardiovascular: Sinus tachycardia with regular rate and rhythm. Gastrointestinal: Several dry, clean and intact dressings on abdominal surgical sights. Soft, distended. Hypoactive bowel sounds in all 4 quadrants, especially on the left lower quadrant. Extremities: Trace pedal edema. No cyanosis. No clubbing. Dorsalis pedis diminished bilaterally. Neurologic: Sedated, unresponsive to any verbal or physical stimuli at this time. LAB DATA: White blood cell 29.57, hemoglobin 7.2, hematocrit 21.7, platelet 219,000. Sodium 133, potassium 4.6, chloride 98, carbon dioxide 16, BUN 96, creatinine 3.3. Glucose 543, AST 2055, ALT 1014, albumin 3.1. ABG, pH 7.14, pCO2 of 52, PO2 of 332, HCO3 of 16.5, base excess -10.8, oxyhemoglobin 96.9, and lactate 3.40 on AC mechanical ventilator with spontaneous rate 12, FiO2 100%, tidal volume 500 and PEEP 5. IMAGING DATA: Chest x-ray at 1426 hours today revealed atelectasis versus pneumonia, left lower lobe ileus versus partial small-bowel obstruction. ASSESSMENT: This is a 58-year-old male with a medical history of diabetes mellitus type 2, hyperlipidemia, hypertension, coronary artery disease, chronic anticoagulation. He has been admitted since yesterday with probable upper gastrointestinal bleed, hyperglycemia, possible sepsis, hyperkalemia, and acute kidney injury. 1. Acute respiratory failure. The patient was intubated and sedated for the GI procedure by Dr. Munoz. He currently just returned from the operating room for about 30min. He remained intubated and sedated. 2. Atelectasis versus pneumonia, left lower lobe. 3. Possible sepsis. 4. Hyperglycemia. 5. Worsening chronic kidney disease. 6. Electrolyte abnormality. 7. Elevated liver function tests. PLAN: 1. Continue AC mechanical ventilator. 2. Start sedation with Ativan 2 mg every 2 hours as needed and morphine 4 mg every 4 hours as needed; will progress to Ativan drip if needed. 3. Continue Levophed as needed. Continue antibiotics. 4. Follow up with ABG, CBC, CMP, chest x-ray and blood cultures. 5. Dr. Mckeon, Dr. Moody and Dr. Munoz are on board. 6. Further recommendations pending hospital course. Thank you for the courtesy of this consult. Dictated by ANDI Suazo for Gracie Guerra MD cc: ANDI Suazo MD [facility]
[2019-01-15 01:10] LABS: HEMATOCRIT 22.9 % (42.0-52.0); HEMOGLOBIN 7.5 g/dL (14.0-18.0)
[2019-01-15] MEDS: SORBITOL PO SCH ×4 (01:41→18:06)
[2019-01-15] MEDS: LEVOPHED 8 MG in D5 1/2 NS 250 ML IV SCH ×2 (02:21→13:26)
[2019-01-15] MEDS: ZOSYN 3.375 GM in NS 50 ML IV SCH ×3 (03:33→20:16)
[2019-01-15 04:34] LABS: ALLEN TEST YES; BE -3.9 mmoll (-3.0-3.0); BLOOD TYPE ARTERIAL; HCO3-(ACT) 21.9 mmoll (20.0-26.0); METHB 1.2 % (0.0-1.5); O2(CT) 13.9 mL/dL (15.0-23.0); O2HB 96.2 % (95.0-99.0); PCO2(98.6) 40 mmHg (35-45); PO2(98.6) 160 mmHg (60-100); SAMPLE BLOOD; SAO2 98.8 % (95.0-100.0); SRATE 18 BPM; TVOL 500 mL; pH(98.6) 7.34 (7.35-7.45)
[2019-01-15 04:36] LABS: MODALITY VENTILATOR
--- NOTE | 2019-01-15 05:15 | GASTROENTEROLOGY CONSULTATION ---
DATE: 01/14/2019 REASON FOR CONSULTATION: Dr. Olson. REASON FOR CONSULTATION: Acute GI bleed and anemia secondary to gastrointestinal bleed. HISTORY: This is a 58-year-old white male patient who has diabetes, hypertension, and has peripheral vascular disease. He has had femoral bypass surgeries, and was admitted to the hospital after presenting to the emergency room with history of melena and near syncopal episodes. His girlfriend/ who was present at bedside tells me that he has been sick for a few days. He has had some injury to his left ankle, and was seen in the emergency room. He was discharged to be followed up with his primary care. He has been taking some [place] for his pain otherwise. He is taking his usual medication. He denies any NSAID's. He started noticing dark tarry stool, and felt cold, clammy, weak, lethargic and had near syncopal episodes. After that, 911 was called, and he was brought to the emergency room where evaluation led to the diagnosis of severe/profound anemia and electrolyte imbalances with potassium of 6.7. He had severe hyperglycemia and metabolic acidosis. He was admitted to hospital for further evaluation and treatment. When I saw him in the ICU, he was on BiPAP. He was able to communicate. His was present at bedside and tells me that he has had no fever or chills, has not had any headache, but he has been dizzy. She denied any chest pain, shortness of breath or palpitations. He has had no cough, sputum, or hemoptysis. He did not have any dysuria, polyuria or hematuria. PAST MEDICAL HISTORY: Significant for gastroesophageal reflux disease. He also carries a diagnosis of diabetes, hypertension, hyperlipidemia and peripheral vascular disease. PAST SURGICAL HISTORY: He has had femoral bypass surgery done. MEDICATIONS: Prior to his hospitalization, he has been on amlodipine, aspirin, Farxiga, fenofibrate, Prinivil, metformin, fish oil, simvastatin and he takes Coumadin. ALLERGIES: Claims to be allergic to heparin. SOCIAL HISTORY: He is , and lives with his . Does not smoke. Does not drink. Does illicit drugs. FAMILY HISTORY: Noncontributory. REVIEW OF SYSTEMS: As per HPI as above. PHYSICAL EXAMINATION: On examination, a very pleasant man. He is lying in bed. Has got BiPAP on his face. He is overweight. He is conscious and responding to questions. Vitals: Temperature 97.7 degrees, pulse was 97 per minute, breathing at 18 to 28, blood pressure 102/35 on pressors. He was on BiPAP. HEENT: Head is atraumatic, normocephalic. Eyes: Conjunctivae is pale. Sclerae anicteric. Nares are patent. No discharge. Mouth: Buccal mucosa is dry. He was asking for water. Neck: Neck is supple. No lymphadenopathy or thyromegaly. As much as I could examine his neck with his BiPAP on. Chest: He has got harsh breath sounds bilaterally. No rhonchi or crepitations could be heard. Heart: Audible. No murmur could be appreciated. Abdomen: Obese. Soft, but tender. The patient had diffuse tenderness albeit mild. No rebound tenderness or guarding noted. Bowel sounds are audible. No pedal edema, cyanosis, or clubbing was noted. SUPPLY CHAIN CONSULTANT: Grossly intact. No sensory or motor deficits. LABORATORIES: Reviewed which showed WBC on admission was 37.12, hemoglobin 5, hematocrit 15.5, MCV 104.10, and platelets were 528,000. PT was 32.1, INR 3.01. PTT 30.1. Sodium 127, potassium 6.7, chloride 85, bicarb was 9, BUN 83, and creatinine 2.1. Glucose 658, calcium 7.9, phosphorus 9.7, total protein 4.6, and albumin 3.0. IMPRESSION: This is 58-year-old gentleman, who has presented to the hospital with history of GI bleed. He has had significant blood loss leading to severe anemia. He is a diabetic who has presented with hyperglycemia, but he is also acidotic and hypotensive with abdominal tenderness and significantly elevated white count, and high lactate levels. I am concerned about possibility of bowel ischemia or gut. At this point, he is getting hemodynamic resuscitation. He has already received packed RBC's. He is on IV fluids and receiving pressors to maintain his blood pressure. He is in the process of receiving fresh frozen plasma to correct his coagulopathy secondary to Coumadin. He will need endoscopic intervention if he continues to bleed actively, but since his symptoms are suggestive of bowel ischemia or gut, he needs surgical evaluation as well. I would recommend to continue current management including reversal of his elevated PT/INR, correction of his electrolytes, and hemodynamic resuscitation while waiting for surgical evaluation. Then, we will decide further plans. I would continue him on IV PPI for now. I have explained the findings and plan to the patient, and have answered all of his pertinent questions. We will also discuss this case with his who was present at bedside. Dr. Olson was present at the bedside too. I have also discussed this case with Dr. Munoz. cc: Gurwinder Moody MD
[2019-01-15] MEDS: NS 1,000 ML IV SCH ×2 (05:30→20:16)
[2019-01-15] MEDS: SODIUM BICARBONATE 8.4% 150 MEQ in STERILE WATER INJ. 1,000 ML IV SCH ×3 (05:30→21:30)
[2019-01-15 06:02] LABS: BASO# 0.04 X1000 (0.0-0.2); BASO% 0.2 % (0.0-0.8); EOS# 0.05 X1000 (0.0-0.7); EOS% 0.2 % (0.0-10.0); HEMATOCRIT 22.8 % (42.0-52.0); HEMOGLOBIN 7.7 g/dL (14.0-18.0); IMM GRAN# 0.26 X1000 (0.0-0.04); IMM GRAN% 1.2 % (0.0-0.5); LYMPH# 1.96 X1000 (1.2-3.4); LYMPH% 9.4 % (20.5-51.1); MCH 31.8 PG (27-31); MCHC 33.8 g/dL (33-37); MCV 94.2 FL (81-99); MONO# 0.96 X1000 (0.11-0.59); MONO% 4.6 % (1.7-9.3); MPV 9.8 FL (7.4-10.4); NEUT# 17.57 X1000 (1.4-6.5); NEUT% 84.4 % (42.2-75.2); PLT 159 X1000 (130-400); RBC 2.42 XMIL (4.7-6.1); RDW 14.9 % (11.5-14.5); WBC 20.84 X1000 (4.8-10.8)
[2019-01-15] MEDS ORDERED: SODIUM CHLORIDE 0.9% INJ SCH (06:15)
[2019-01-15 06:23] LABS: INR 1.45; PROTIME 17.9 Seconds (11.0-16.0)
--- NOTE | 2019-01-15 06:49 | Diag Imaging Result Doc PS360 ---
EXAM: CHEST-PORTABLE HISTORY: dyspnea TECHNIQUE: Single view COMPARISON: 01/14/2019 FINDINGS: Endotracheal tube in good position. Nasogastric tube overlies the esophagus and stomach. No change in the left jugular line. Heart is not enlarged. Pulmonary edema remaining mass. There is a small left effusion. There may be small underlying infiltrates. IMPRESSION: No interval improvement Electronically signed by Roman Heaton 01/15/2019 6:46 AM
[2019-01-15 06:55] LABS: ALB/GLOB RATIO 2.1; ALBUMIN 2.9 g/dL (3.5-5.0); CALCIUM 7.3 mg/dL (8.8-10.2); CREATININE 2.7 mg/dL (0.7-1.2); MAGNESIUM 2.1 mg/dL (1.5-2.7); PHOSPHORUS 4.3 mg/dL (2.7-4.5); POTASSIUM 4.5 mmol/L (3.5-5.1); TOTAL BILIRUBIN 0.57 mg/dL (0.20-1.00); TOTAL PROTEIN 4.3 g/dL (6.3-8.3)
[2019-01-15 07:24] LABS: EOS 1 % (1-10); LYMPHS 2 % (21-51); MONO 1 % (1-9); NRBC 1 % (0-0); SEGS 96 % (42-75)
[2019-01-15] MEDS: PROTONIX IV SCH ×2 (08:04→20:16)
[2019-01-15] MEDS: HUMULIN R 100 UNIT in NS 100 ML IV SCH (09:52)
[2019-01-15] MEDS: ZYVOX 600 MG/D5W 600 MG/300 ML IVPB IV SCH ×2 (10:26→22:28)
--- NOTE | 2019-01-15 10:34 | Diag Imaging Result Doc PS360 ---
EXAM: CHEST-PORTABLE HISTORY: OGT placement TECHNIQUE: Chest abdomen single view COMPARISON: 5:39 AM FINDINGS: There is a nasogastric tube overlying the esophagus and stomach. This appears to be in good position. Electronically signed by Roman Heaton 01/15/2019 10:32 AM
[2019-01-15] MEDS: D5 NS 1,000 ML IV PRN (10:50)
--- NOTE | 2019-01-15 11:53 | PROGRESS NOTE ---
DATE: 01/15/2019 SUBJECTIVE: This patient is on mechanical ventilation and he is getting Ativan. He seems to be waking up and moving his extremities, and answering some of the questions per the nursing report. He is moving with pain and stimulation for me but he is not following commands. OBJECTIVE: Vital Signs: Temperature 99.3 degrees, pulse 91, respiratory rate 20, blood pressure 113/59 and oxygen saturation 100% on mechanical ventilation. HEENT: Head normocephalic. No trauma. PERRLA. Neck: Supple. No JVD. No masses. Central trachea. Chest: Decreased breath sounds globally with coarse breath sounds. Abdomen: Soft. Mild to moderately distended. Positive bowel sounds but decreased. His abdomen is tender mostly at the level of the upper area and left area. Extremities: No edema. No clubbing. No cyanosis. Neurological: This patient is on mechanical ventilation. He is getting Ativan. As per the nurse, he has he has been following commands on and off. He moves all 4 extremities. LABORATORY: WBC 20.8, hemoglobin 7.5, hematocrit 22.9, and platelets 159,000. Sodium 144, potassium 4.5, chloride 109, bicarbonate 21, BUN 76, creatinine 2.7, glucose 259, calcium 7.3, phosphorus 4.3, AST 1012, ALT 819, alkaline phosphatase 65, and albumin 2.9. ASSESSMENT AND PLAN: 1. Septic shock. He is still on pressors but we have been decreasing the rate slowly. He seems to be better. I will continue with same management. His bicarb level is still a little bit low, but much better compared with before. Also, we will continue with broad spectrum antibiotics. His leukocyte count is trending down. Yesterday, in the morning it was 50 and today is 20.8. 2. Metabolic acidosis due to septic shock/acute kidney injury. Continue with same management for now. His kidney function is getting better, and he is having good urine output. Continue with same management for now. 3. Gastric ulcer noted on EGD and all blood in the stomach with possible low flow to ischemia to the duodenum, not full thickness. This procedure was done yesterday. This patient also had a diagnostic laparoscopy done yesterday at the same time. They did not see any ischemic bowel. 4. Type 2 diabetes with hyperglycemia. Continue with insulin drip. The blood sugar is much better. 5. Hyperkalemia resolved. 6. Hyponatremia resolved that was likely secondary to hyperglycemia. 7. GI bleed. As above, he has a gastric ulcer and all blood in the stomach, status post esophagogastroduodenoscopy. Gastroenterology Department following this patient. 8. Acute blood loss anemia, better. We will try to keep the hemoglobin between 7 to 8. 9. Chronic anticoagulation. His INR has been therapeutic, but now is supratherapeutic. He has been on warfarin before which we have stopped. 10. Kidney injury. I do not have a baseline kidney function for this patient, but he is making good urine output and his creatinine is getting better compared with yesterday as well as the BUN. 11. This patient seems to be better compared with yesterday. He is still remarkably sick, though. We will continue to monitor this patient in the ICU. I will continue with the same management for now. 12. I discussed in length the resuscitation status on this patient yesterday, and they have decided to be full code. CRITICAL CARE TIME: 35 minutes. cc: Venkatesh Duffy MD
[2019-01-15] MEDS ORDERED: VANCOMYCIN 1,800 MG in NS 250 ML IV SCH (13:00)
[2019-01-15] MEDS: ATIVAN 20 MG in NS 190 ML IV SCH ×2 (13:26→23:42)
--- NOTE | 2019-01-15 13:47 | GENERAL SURGERY PROGRESS NOTE ---
DATE: 01/15/2019 SUBJECTIVE: The patient is still on the ventilator. Discussed with nursing staff. He seems to be doing about the same. He is still on Levophed. His Protonix drip has been transitioned to q. 12. OBJECTIVE: Vital Signs: The patient's temperature 99.3 degrees, pulse 90, respiratory rate 18, blood pressure 113/66. General: Sedated on the ventilator. Cardiovascular: Regular rate and rhythm on Levophed. Lungs: Coarse sounds noted. Abdomen: Soft, a little protuberant. LABORATORY: White blood cell count is 20, hematocrit 22.9. ABG shows significant improvement in his pH. His lactate is now in the normal range. ASSESSMENT AND PLAN: A 58-year-old gentleman with diabetic ketoacidosis, GI bleed, and potentially low-flow state to his intestines. 1. Diabetic ketoacidosis. At this time, being managed by the hospitalist. Electrolytes seem to be improving on the labs yesterday evening. We will continue to monitor. 2. GI bleed. At this time, patient has been transitioned over to q. 12 IV Protonix. His hematocrit is relatively stable. We will continue to monitor him. 3. Low-flow blood flow to the bowel. At this time, he is still requiring some degree of pressors. We will continue to resuscitate him. Hopefully, we can get him off the pressors and we will continue to monitor him. cc: Jef Munoz MD
[2019-01-15] MEDS: MORPHINE IV PRN ×2 (16:02→22:16)
[2019-01-15 17:25] LABS: HEMOGLOBIN 6.8 g/dL (14.0-18.0)
[2019-01-15] MEDS ORDERED: SODIUM BICARBONATE IV ONE (18:14)
[2019-01-15] MEDS ORDERED: 1/2 NS IV ONE (18:14)
[2019-01-15] MEDS ORDERED: NS 250 ML ONE (18:26)
--- NOTE | 2019-01-15 19:15 | NEPHROLOGY PROGRESS NOTE ---
DATE: 01/15/2019 SUBJECTIVE: Patient remains sedated and mechanically ventilated. OBJECTIVE: Vital Signs: Temperature 99.3 degrees, pulse 91, respiratory 20, blood pressure 113/59, intake 6.4 L, output 3.9 L via Dale catheter. General: This is a critically ill- appearing gentleman currently sedated, mechanically ventilated. HEENT: Normocephalic, atraumatic. Orally intubated. Neck: Supple. Trace JVD. Cardiovascular: Regular rate and rhythm. No murmur. Pulmonary: Equal excursion, clear bilaterally. Abdomen: Hypoactive. : Dale catheter. Extremities: Trace edema. Integumentary: Skin is pale, warm and dry. LAB DATA: WBC of 20.8, hemoglobin 7.7, sodium 144, potassium 4.5, CO2 21, creatinine 2.7 (3.3). ASSESSMENT AND PLAN: 1. Acute on chronic kidney disease. The patient underwent a exploratory laparotomy yesterday secondary to possible ischemic bowel, gastrointestinal bleed. The patient underwent gastrointestinal surgery yesterday came back from the operating room intubated. Remains intubated. His renal function has been stable. Urine output has been adequate and he was fluid resuscitated yesterday. Electrolytes at this time he does not need intervention in the form of dialysis. 2. Electrolytes, acid-base balance, these are stabilized after surgery. 3. Anemia status post gastrointestinal bleed status post gastric surgery followed by primary surgery. Will defer if he needs transfusion. 4. Respiratory failure followed by primary, followed by Pulmonology. 5. Volume status. Again he was resuscitated yesterday, he continues with D5 normal saline. He continues on pressor support. Continue bicarb. Dictated by ANDI Hernandez for Rajinder Mckeon MD cc: Rajinder Mckeon MD
--- NOTE | 2019-01-15 23:01 | PULMONOLOGY PROGRESS NOTE ---
DATE: 01/15/2019 SUBJECTIVE: The patient is on mechanical ventilation. He is sedated but arousable. He remains on Levophed, but this has been decreased today. OBJECTIVE: Vital Signs: Patient's maximum temperature in the last 24 hours 99.9 degrees, blood pressure 101/63, heart rate 93, oxygen saturation 100% on 60% FiO2. HEENT: Pupils are equal and reactive. Oropharynx appears clear but dry. Neck: Supple. Chest: Reveals coarse rhonchi bilaterally. Cardiac: S1, S2, increased rate. Abdomen: Soft with surgical dressings in place. Extremities: Cool to the touch. LABORATORIES: Chest x-ray reveals endotracheal tube in good position. Left subclavian catheter in good position. Mild pulmonary edema with small left-sided effusion. Arterial blood gas, pH 7.34, pCO2 of 40, PO2 of 160 with a normal lactate. Sodium 144, potassium 4.5, chloride 109, bicarbonate 21, BUN 76, creatinine 2.7, glucose 259. White blood count 20.84, hemoglobin 7.7, platelet count 159,000. Repeat hemoglobin 6.8. IMPRESSION: A 58-year-old with: 1. Diabetes mellitus with hyperglycemia on admission. 2. Acute hypoxemic respiratory failure. 3. Blood loss anemia. 4. Hemodynamic shock on vasopressors with leukocytosis without documented site of infection. 5. Gastrointestinal bleeding with duodenal ischemia, likely related to hypotension. 6. Acute renal failure with metabolic acidosis. 7. Transaminitis/hypotension-induced hepatitis/shock liver. PLAN: 1. Continue full ventilatory support pending clinical improvement. 2. Additional fluid bolus this evening. We will give 1 L of half-normal saline with 75 mEq of bicarbonate in an attempt to further wean vasopressors. 3. Continue insulin drip for hyperglycemia. 4. Prognosis is guarded. TIME: Time spent in critical care management, 30+ minutes. cc: Lamine Mohamud MD
--- NOTE | 2019-01-16 00:07 | GASTROENTEROLOGY PROGRESS NOTE ---
DATE: 01/15/2019 SUBJECTIVE: The patient is currently intubated on mechanical ventilation. He does have sedation on board. I have spoken with the nurse. There was no family at the bedside at the time of my visit. The patient is still on vasopressors. There has been no evidence of active bleeding today. Hemoglobin and hematocrit today 7.5 and 22.9. The patient has an orogastric tube with some noted old blood in the tubing. The patient had diagnostic laparoscopy on 01/14/[address] Munoz and an EGD by Dr. Moody that showed a gastric ulcer and old blood in the stomach, with possible low-flow ischemia in the duodenum. OBJECTIVE: Vital signs: Temperature 99.3 degrees, pulse 94, respirations 19, blood pressure 99/59. Generally the patient was sedated on mechanical ventilation. Abdomen with laparoscopic incision clean, dry and intact. Abdomen is soft. Decreased bowel sounds. LABORATORY DATA: Hematology: WBC 20.84, hemoglobin 7.5, hematocrit 22.9, MCV 94.2, platelets 159,000. Coagulation: Pro time 17.9, INR 1.45. Chemistry: Sodium 144, potassium 4.5, chloride 109, CO2 is 21, BUN 76, creatinine 2.7 glucose 259. ASSESSMENT AND PLAN: 1. Septic shock. Still on vasopressors. Continue current management. His white count has decreased today. 2. Gastric ulcer on esophagogastroduodenoscopy, possible low-flow ischemia to the duodenum. We will continue to follow hemoglobin and hematocrit, and follow for further evidence of active gastrointestinal bleeding. 3. Recent diagnostic laparoscopy by Dr. Munoz, with no evidence of bowel ischemia. 4. Other medical problems: Type 2 diabetes, chronic anticoagulation. We will continue to follow during his hospital course. Continue to monitor hemoglobin and hematocrit, and monitor for further evidence of active bleeding. Continue intravenous proton pump inhibitor. Keep his orogastric tube clamped at this time. Further plans will be made according to his progress. I have discussed this case with Dr. Moody. Dictated by NADI Martinez for Gurwinder Moody MD cc: ANDI Starks MD
[2019-01-16] MEDS: SODIUM BICARBONATE 8.4% 150 MEQ in STERILE WATER INJ. 1,000 ML IV SCH (00:12)
[2019-01-16] MEDS: SORBITOL PO SCH ×4 (01:52→17:45)
[2019-01-16] MEDS: ZOSYN 3.375 GM in NS 50 ML IV SCH ×3 (03:14→21:00)
[2019-01-16] MEDS: D5 NS 1,000 ML IV PRN (03:16)
[2019-01-16 04:41] LABS: ALLEN TEST YES; BLOOD TYPE ARTERIAL; HCO3-(ACT) 27.2 mmoll (20.0-26.0); METHB 0.8 % (0.0-1.5); O2(CT) 16.1 mL/dL (15.0-23.0); O2HB 96.1 % (95.0-99.0); PCO2(98.6) 43 mmHg (35-45); PO2(98.6) 105 mmHg (60-100); SAMPLE BLOOD; SAO2 98.7 % (95.0-100.0); SRATE 18 BPM; THB 11.8 g/dL (11.5-17.4); TVOL 500 mL; pH(98.6) 7.42 (7.35-7.45)
[2019-01-16 04:43] LABS: MODALITY VENTILATOR
[2019-01-16 05:17] LABS: INR 1.59; PROTIME 19.3 Seconds (11.0-16.0)
[2019-01-16 05:32] LABS: BASO# 0.02 X1000 (0.0-0.2); BASO% 0.2 % (0.0-0.8); EOS# 0.09 X1000 (0.0-0.7); EOS% 0.7 % (0.0-10.0); HEMOGLOBIN 7.6 g/dL (14.0-18.0); IMM GRAN# 0.12 X1000 (0.0-0.04); IMM GRAN% 0.9 % (0.0-0.5); LYMPH# 1.49 X1000 (1.2-3.4); LYMPH% 11.8 % (20.5-51.1); MCH 33.6 PG (27-31); MCHC 34.5 g/dL (33-37); MCV 97.3 FL (81-99); MONO# 0.54 X1000 (0.11-0.59); MONO% 4.3 % (1.7-9.3); NEUT# 10.42 X1000 (1.4-6.5); NEUT% 82.1 % (42.2-75.2); PLT 105 X1000 (130-400); RBC 2.26 XMIL (4.7-6.1); RDW 16.6 % (11.5-14.5); WBC 12.68 X1000 (4.8-10.8)
[2019-01-16 05:50] LABS: HEMOGLOBIN A1C 6.8 % (4.8-6.0)
[2019-01-16 06:12] LABS: ALB/GLOB RATIO 1.2; ALBUMIN 2.2 g/dL (3.5-5.0); CREATININE 1.8 mg/dL (0.7-1.2); PHOSPHORUS 2.1 mg/dL (2.7-4.5); POTASSIUM 3.2 mmol/L (3.5-5.1); TOTAL BILIRUBIN 0.44 mg/dL (0.20-1.00); TOTAL PROTEIN 4.1 g/dL (6.3-8.3)
[2019-01-16] MEDS ORDERED: CALCIUM GLUCONATE 2 GM in NS 100 ML IV ONE (06:42)
[2019-01-16] MEDS ORDERED: POTASSIUM CHLORIDE 40 MEQ/SWI 40 MEQ/100 ML IVPB IV ONE (06:43)
[2019-01-16] MEDS ORDERED: CLINIMIX E 4.25%-5% SOLUTION 1,000 ML IV SCH (07:30)
[2019-01-16 07:48] LABS: BANDS 2 % (0-1); EOS 2 % (1-10); LYMPHS 16 % (21-51); MONO 6 % (1-9); NRBC 3 % (0-0); SEGS 74 % (42-75)
--- NOTE | 2019-01-16 07:58 | Diag Imaging Result Doc PS360 ---
EXAM: CHEST-PORTABLE INDICATION: dyspnea TECHNIQUE: One view COMPARISON: 01/15/2019 FINDINGS: The NG tube has been retracted significantly. The tip now projects over the upper esophagus. The ET tube is in stable position. Inspiration is suboptimal. Pulmonary venous congestion and mild interstitial edema is approximately stable. No new consolidation is identified. Cardiac silhouette is stable. IMPRESSION: Interval retraction of the NG tube, which is now likely in the upper esophagus. Stable chest, otherwise. Electronically signed by Vladislav Noe 01/16/2019 7:56 AM
[2019-01-16] MEDS: MORPHINE IV PRN ×3 (08:28→23:24)
[2019-01-16] MEDS: LANTUS INSULIN SUBQ SCH (08:30)
[2019-01-16] MEDS: 1/2 NS 1,000 ML IV SCH ×2 (08:31→17:45)
[2019-01-16] MEDS: PROTONIX IV SCH ×2 (08:31→21:00)
--- NOTE | 2019-01-16 10:04 | Diag Imaging Result Doc PS360 ---
EXAM: CHEST-PORTABLE INDICATION: NG tube placement / verification TECHNIQUE: One view COMPARISON: 01/16/2019 FINDINGS: The NG tube has been advanced and now projects well below the diaphragm in the expected position. The other support tubes and lines are in stable positions. Otherwise, the chest is stable as compared to the recent prior study. IMPRESSION: Interval advancement of the NG tube, which is now in the expected position. Electronically signed by Vladislav Noe 01/16/2019 10:01 AM
[2019-01-16] MEDS: ATIVAN 20 MG in NS 190 ML IV SCH ×2 (10:19→18:48)
[2019-01-16] MEDS: ZYVOX 600 MG/D5W 600 MG/300 ML IVPB IV SCH ×2 (10:20→21:02)
--- NOTE | 2019-01-16 11:06 | PROGRESS NOTE ---
DATE: 01/16/2019 SUBJECTIVE: Patient is still on mechanical ventilation. He is able to move his 4 extremities with pain stimulation but he is not following commands. He is calcium level is low as well as his potassium level and both has been replaced. His sodium level is elevated so I will switch the normal saline to half NS and also I will stop the insulin drip and put him on long-acting insulin and sliding scale insulin. Also, I will stop bicarbonate drip since his bicarbonate in the CMP is 25 and in the blood gases is 27.2. He is having good urine output. His kidney function is getting much better as well as his LFTs. He is still remarkably sick, though. White blood cell count trending down. OBJECTIVE: Vital Signs: Temperature 99.3 degrees, pulse respiratory rate 18, blood pressure 117/60, oxygen saturation 100% on mechanical ventilation. HEENT: Head normocephalic, no trauma PERRLA. He has a small excoriation on his forehead. Neck: Supple. No JVD. No masses. Central trachea. Chest: Decreased breath sounds globally with coarse breath sounds. Some crepitus. Abdomen: Soft, moderately distended. Decreased bowel sounds. He is grimacing with palpation. Extremities: No edema, no clubbing, no cyanosis. Neurological: This patient is on mechanical ventilation. He is moving his 4 extremities slowly with pain stimulation. He is grimacing with pain as well. He is not following commands. LABORATORY: WBC 12.6, hemoglobin 7.6, hematocrit 22, platelets 105,000. Sodium 147, potassium 3.2, chloride 116, bicarbonate 25, BUN 47, creatinine 1.8, glucose 151, calcium 6, phosphorus 2.1. AST 231, ALT 451, alkaline phosphatase 65, albumin 2.2. ASSESSMENT AND PLAN: 1. Septic shock. He is still on pressors, but we have been decreasing the rate slowly. He seems to be better, but his blood pressure is still borderline low, metabolic acidosis due to septic shock, acute kidney injury resolved, actually now his bicarb is within normal limits. I will stop it. His kidney function is getting much better. He is having good urine output. 2. Gastric ulcer noted on the esophagogastroduodenoscopy and blood in the stomach with possible low-flow ischemia to the duodenum, no full thickness ischemia. The procedure was done 2 days ago. The patient also had a lot of blood inside his stomach, apparently around 2 L. They did a laparoscopic diagnosis laparoscopic laparoscopy 2 days ago and they did not see any ischemic bowel. 3. Type 2 diabetes with hyperglycemia. Surprisingly, his hemoglobin A1c 6.8. He received around 76 units of insulin in the past 24 hours. His blood sugar has been stable. I will stop the insulin drip and I will put this patient on Lantus, I will start with 30 units and monitor his blood sugar closely. Also I will stop the insulin drip in 2 hours, and I will use a sliding scale insulin as needed. 4. Hyperkalemia, resolved. Actually this patient is hypokalemic and we are replacing the potassium. 5. Hypokalemia as above. 6. Hyponatremia, resolved, likely secondary to hyperglycemia. 7. Hypernatremia I will stop the normal saline and I will put this patient on half NS, also he will receive some Clinimix. 8. Gastrointestinal bleed as per #3, this patient had an EGD while he was getting also a diagnosis laparoscopy, they pulled out a lot of blood from the stomach and they found a an ulcer. 9. Acute blood loss anemia, his hemoglobin yesterday dropped to 6.8 and a and he received 2 units of packed red blood cells. The hemoglobin improved a little bit to 7.6. I will check his hemoglobin every 6 hours. 10. Chronic anticoagulation, INR has been supratherapeutic after treatment. 11. Acute kidney injury, seems to be improving. He is having good urine output. I do not have a baseline. I do not have previous records. 12. This patient seems to be a little bit better compared with yesterday, but he is still remarkably sick. We will continue treating this patient in the ICU. 13. Respiratory failure, continue with mechanical ventilation. This patient is full code. 14. Hypocalcemia. We will replace the calcium. CRITICAL CARE TIME: 40 minutes. cc: Venkatesh Duffy MD
[2019-01-16] MEDS: HUMULIN R SUBQ SCH ×3 (11:32→21:48)
[2019-01-16 12:17] LABS: HEMATOCRIT 25.9 % (42.0-52.0); HEMOGLOBIN 8.3 g/dL (14.0-18.0)
[2019-01-16] MEDS: SOLU-CORTEF IV SCH (15:36)
--- NOTE | 2019-01-16 20:57 | NEPHROLOGY PROGRESS NOTE ---
DATE: 01/16/2019 SUBJECTIVE: Patient remains sedated and mechanically ventilated. OBJECTIVE: Vital Signs: Temperature 99.3 degree, pulse 83, respiratory rate 18, blood pressure 140/75. Intake 5.5 L, output 3.2 L. General: This is a critically ill- appearing, elderly gentleman resting in bed. He is currently sedated and mechanically ventilated. HEENT: Normocephalic, atraumatic. TIAGO. Orally intubated. Neck: Thick. Unable to determine JVD. Cardiovascular: Regular rate and rhythm without murmur. Pulmonary: Rhonchi and crackles bilaterally. Abdomen: Round. He has multiple incision sites. No drainage. Genitourinary: Adle catheter. Moderate urine. Extremities: Trace edema. No clubbing, cyanosis. Integumentary: Skin is pale, warm, and dry. LABORATORY DATA: WBC of 12.6, hemoglobin 7.6, platelets of 105,000. Sodium 142, potassium 3.2, chloride 116, CO2 of 25, BUN 47, creatinine 1.8 (2.7). ASSESSMENT AND PLAN: 1. Acute on chronic kidney disease. Patient's renal function with modest improvement overnight. No changes to his plan. 2. Electrolytes, acid-base balance, anemia. He has some modest anemia after surgery. Essentially stable. Electrolytes and acid-base balance are acceptable. 3. Respiratory failure. Remains on the ventilator. Followed by primary and Pulmonology. 4. Volume status. Urine output has picked up nicely. Not overloaded at this time. He is currently on Clinimix and sodium bicarbonate. His metabolic acidosis has improved. His ABGs with a pH of 7.42. Dictated by ANDI Hernandez for Rajinder Mckeon MD cc: Rajinder Mckeon MD [facility]
[2019-01-16 21:08] LABS: HEMATOCRIT 26.1 % (42.0-52.0); HEMOGLOBIN 9.1 g/dL (14.0-18.0)
--- NOTE | 2019-01-16 22:09 | GASTROENTEROLOGY PROGRESS NOTE ---
DATE: 01/16/2019 SUBJECTIVE: Patient remains intubated and sedated. He has not had any signs of active bleeding. He has not had any melena. He is off pressors now. He has had good urine output. OBJECTIVE: Vitals: Temperature is 99 degrees Fahrenheit, pulse is 89 per minute, breathing at a rate of 17 or 20 on ventilator. Blood pressure 104/60, off pressors. Abdomen: Full, soft, nontender. Bowel sounds are audible, but sluggish. LABORATORY DATA: Labs reviewed, which show WBC had gone down to 6.8, but after 2 units of infusion of packed RBC, it has gone up to 8.3. PT 19.3, INR 1.59. Sodium 147, potassium 3.2, chloride 116, bicarbonate was 47, creatinine 1.8, glucose 151. AST has come down to 231. ALT has come down to 451, with normal alkaline phosphatase. IMPRESSION/PLAN: Acute gastrointestinal bleed from gastric ulcer with visible vessel treated. He is currently on IV PPI, has not shown any signs of active bleeding anymore. He is getting hemodynamically stable. He is off pressors. He had evidence of ischemic liver injury and his liver enzymes are also trending down. I will start him on Glucerna at low dose and advance as tolerated through the OG tube. Will check residual and once he is extubated, we can start him on p.o. when available. We will continue to check labs and follow. cc: Gurwinder Moody MD MTDD
--- NOTE | 2019-01-16 22:20 | PULMONOLOGY PROGRESS NOTE ---
DATE: 01/16/2019 SUBJECTIVE: The patient is sedated. He remains on Levophed. OBJECTIVE: HEENT: Pupils are equal and reactive. Oropharynx appears clear. Neck is supple. Chest reveals coarse rhonchi bilaterally. Cardiac exam: S1, S2. Abdomen is soft. Extremities reveal 1+ edema. DIAGNOSTIC DATA: Chest x-ray #1 reveals retraction of the endotracheal tube. He has a central line in good position on the left. No dense infiltrates present. LABORATORY DATA: Sodium 147, potassium 3.2, chloride 116, bicarbonate 25, BUN 47, creatinine 1.8, phosphorus 2.1. White blood count 12.68, hemoglobin 7.6, platelet count 105,000. Microbiology reveals no new data. IMPRESSION: A 58-year-old with: 1. Diabetes mellitus with hyperglycemia on admission. 2. Acute hypoxemic respiratory failure. 3. Hemodynamic shock, on vasopressors. Site of infection may have been the duodenum associated with decreased blood flow related to hypotension. 4. Blood loss anemia. 5. Gastrointestinal bleeding with duodenal ischemia. 6. Acute renal failure with metabolic acidosis. 7. Adrenal insufficiency, with a cortisol level of 13. RECOMMENDATIONS: 1. Continue full ventilatory support, given ongoing clinical improvement. 2. Initiate low-dose steroids, given relative adrenal insufficiency. 3. Insulin management per Dr. Olson. 4. Initiate Glucerna. We will give approximately 1 tablespoon per hour into the GI tract. Time spent in critical care management 30-plus minutes. cc: Lamine Mohamud MD
[2019-01-17 01:29] LABS: HEMATOCRIT 22.2 % (42.0-52.0); HEMOGLOBIN 7.1 g/dL (14.0-18.0)
[2019-01-17] MEDS: SOLU-CORTEF IV SCH ×2 (02:04→14:31)
[2019-01-17] MEDS: ZOSYN 3.375 GM in NS 50 ML IV SCH ×3 (03:15→20:52)
[2019-01-17] MEDS: 1/2 NS 1,000 ML IV SCH (03:15)
[2019-01-17] MEDS: MORPHINE IV PRN ×3 (03:32→21:01)
[2019-01-17] MEDS: ATIVAN 20 MG in NS 190 ML IV SCH ×3 (04:40→21:00)
[2019-01-17 05:09] LABS: ALLEN TEST YES; BE 1.7 mmoll (-3.0-3.0); BLOOD TYPE ARTERIAL; HCO3-(ACT) 26.2 mmoll (20.0-26.0); METHB 0.7 % (0.0-1.5); O2(CT) 14.1 mL/dL (15.0-23.0); PCO2(98.6) 46 mmHg (35-45); PO2(98.6) 99 mmHg (60-100); SAMPLE BLOOD; SAO2 98.4 % (95.0-100.0); SRATE 18 BPM; THB 10.3 g/dL (11.5-17.4); TVOL 500 mL; pH(98.6) 7.38 (7.35-7.45)
[2019-01-17 05:10] LABS: MODALITY VENTILATOR
[2019-01-17] MEDS: HUMULIN R SUBQ SCH ×4 (06:06→20:57)
[2019-01-17] MEDS: SORBITOL PO SCH ×4 (06:06→17:30)
[2019-01-17 06:49] LABS: BASO# 0.02 X1000 (0.0-0.2); BASO% 0.2 % (0.0-0.8); EOS# 0.07 X1000 (0.0-0.7); EOS% 0.7 % (0.0-10.0); HEMATOCRIT 24.2 % (42.0-52.0); HEMOGLOBIN 8.1 g/dL (14.0-18.0); IMM GRAN# 0.05 X1000 (0.0-0.04); IMM GRAN% 0.5 % (0.0-0.5); LYMPH# 0.87 X1000 (1.2-3.4); LYMPH% 8.1 % (20.5-51.1); MCH 33.8 PG (27-31); MCHC 33.5 g/dL (33-37); MCV 100.8 FL (81-99); MONO# 0.59 X1000 (0.11-0.59); MONO% 5.5 % (1.7-9.3); MPV 11.1 FL (7.4-10.4); NEUT# 9.15 X1000 (1.4-6.5); PLT 129 X1000 (130-400); RDW 17.7 % (11.5-14.5); WBC 10.75 X1000 (4.8-10.8)
--- NOTE | 2019-01-17 07:25 | PROGRESS NOTE ---
DATE: 01/17/2019 SUBJECTIVE: No acute events overnight. His urine output seems to be stable. Pending CMP at this moment. We started nutrition through the OG-tube yesterday. He does have bowel sounds. Hemoglobin seems to be stable. Blood pressure has been also stable. He is not on pressors. OBJECTIVE: Vital Signs: Temperature 98.8 degrees, pulse 75, respiratory rate 21, blood pressure 117/67, oxygen saturation 96 on mechanical ventilation. HEENT: Head normocephalic. No trauma. PERRLA. He has a small excoriation on his forehead. Neck: Supple. No JVD. No masses. Central trachea. Chest: Decreased breath sounds globally with coarse breath sounds at the bases, otherwise clear. Abdomen: Soft. Moderately distended. Positive bowel sounds. He is grimacing a little bit with manipulation and pain stimulation. Extremities: No edema, no clubbing, no cyanosis at the level of the lower extremities. Neurological Examination: The patient is on mechanical ventilation and sedated. Laboratory: WBC 10.7, hemoglobin 8.1, hematocrit 24.2, platelets 129,000. Pending CMP. Glucose level 207. ASSESSMENT AND PLAN: 1. Septic shock. He is not on pressors at this moment. His blood pressure seems to be more stable. Also, his cortisol level is a little bit low for the stressful situation so he has been started on hydrocortisone. 2. Possible adrenal insufficiency, as above. 3. Gastric ulcer noted on the esophagogastroduodenoscopy and blood in the stomach with possible low-flow ischemia to the duodenum. No full thickness ischemia. This procedure was done 3 days ago, along with an exploratory laparoscopy. 4. Type 2 diabetes with hyperglycemia, seems to be better controlled. Continue with the same management. 5. Hyperkalemia, pending results today. 6. Hypokalemia. This patient initially was hyperkalemic; now yesterday, hypokalemic. He received potassium so we will monitor. 7. Hypernatremia. Pending results today. We will monitor this closely. 8. Gastrointestinal bleed, status post esophagogastroduodenoscopy. A single ulcer in his stomach was found. 9. Acute blood loss anemia. Hemoglobin has been stable. He is status post multiple units of packed red blood cells. 10. Chronic anticoagulation. INR has been subtherapeutic after treatment. 11. Acute kidney injury, seems to be improving. 12. The patient seems to be a little bit better compared with admission but still remarkably sick. We will continue treating this patient in the intensive care unit. 13. Respiratory failure. Continue with mechanical ventilation. This patient is Full Code. 14. Hypokalemia, replaced yesterday. CRITICAL CARE TIME: 35 minutes. cc: Venkatesh Duffy MD
[2019-01-17 07:31] LABS: ALB/GLOB RATIO 1.1; ALBUMIN 2.7 g/dL (3.5-5.0); CALCIUM 7.5 mg/dL (8.8-10.2); CREATININE 1.7 mg/dL (0.7-1.2); MAGNESIUM 2.6 mg/dL (1.5-2.7); PHOSPHORUS 3.4 mg/dL (2.7-4.5); POTASSIUM 4.7 mmol/L (3.5-5.1); TOTAL BILIRUBIN 0.5 mg/dL (0.20-1.00); TOTAL PROTEIN 5.1 g/dL (6.3-8.3)
--- NOTE | 2019-01-17 07:57 | Diag Imaging Result Doc PS360 ---
EXAM: CHEST-PORTABLE INDICATION: dyspnea TECHNIQUE: One view COMPARISON: 01/16/2019 FINDINGS: Support tubes and lines are in stable positions. Pulmonary venous congestion and mild interstitial edema is approximately stable. No new consolidation is identified. Cardiac silhouette is stable. IMPRESSION: Grossly stable chest. Electronically signed by Vladislav Noe 01/17/2019 7:55 AM
[2019-01-17] MEDS: PROTONIX IV SCH (08:04)
--- NOTE | 2019-01-17 08:54 | GENERAL SURGERY PROGRESS NOTE ---
DATE: 01/17/2019 He is now 3 days after laparoscopy. He continues on the ventilator. His heart rate is 77, blood pressure is 106/53. Intake 4882, output 2075. He is sedated. Laboratory data shows his hemoglobin is 7.1, hematocrit 22, white count 10,000. His BUN is 45, creatinine down to 1.7. ASSESSMENT: He continues stable. There is no obvious gastrointestinal bleeding. No further recommendations at this time. cc: Parish Archuleta MD
[2019-01-17] MEDS: ZYVOX 600 MG/D5W 600 MG/300 ML IVPB IV SCH ×2 (09:05→21:01)
[2019-01-17] MEDS: LANTUS INSULIN SUBQ SCH (09:08)
[2019-01-17] MEDS: D5W 1,000 ML IV SCH ×2 (12:42→20:51)
[2019-01-17] MEDS ORDERED: NS 500 ML ONE ×2 (13:01→17:36)
[2019-01-17] MEDS: LASIX IV SCH (14:15)
[2019-01-17] MEDS: ATIVAN IV PRN (14:20)
--- NOTE | 2019-01-17 14:21 | NEPHROLOGY PROGRESS NOTE ---
DATE: 01/17/2019 SUBJECTIVE: The patient is resting in bed. He remains mechanically ventilated. OBJECTIVE: Vital Signs: Temperature 98 degrees, pulse 78, respiratory rate 21, blood pressure 117/67. Intake 4.8 L, output 2 L. General: This is an ill gentleman, currently resting in bed, sedated, mechanically ventilated. HEENT: Normocephalic, atraumatic. He is orally intubated. Neck: Supple. Cardiovascular: Regular rate and rhythm. Pulmonary: He continues with some crackles bilaterally. Abdomen: Round with positive bowel sounds. : Dale catheter. Extremities: Trace edema. Integumentary: Skin is warm and dry. LABORATORY DATA: WBC of 10.7, hemoglobin 8.1 (7.1). Sodium 148, potassium 4.7, chloride 113, CO2 of 25, BUN 45, creatinine 1.7, calcium 7.5, albumin 2.7. ASSESSMENT AND PLAN: 1. Acute on chronic kidney disease. Continues with stability of renal function, adequate urine output. No changes to current treatment plan. 2. Electrolytes, acid base balance, anemia. Stable. He has required no further transfusions. 3. Respiratory status. Remains on the ventilator. 4. Volume. Urine output has been adequate. He is still in positive territory secondary to the amount of intravenous fluids he is receiving. 5. Septic shock. Blood pressure is stable. He is off pressor support. Dictated by ANDI Hernandez for Rajinder Mckeon MD cc: Rajinder Mckeon MD
[2019-01-17] MEDS: PROTONIX 80 MG in NS 80 ML IV SCH (15:00)
--- NOTE | 2019-01-17 18:06 | PULMONOLOGY PROGRESS NOTE ---
DATE: 01/17/2019 SUBJECTIVE: The patient is arousable. He remains on mechanical ventilation. He remains off vasopressors. OBJECTIVE: Vital Signs: The patient has been afebrile for the last 24 hours. Blood pressure 104/56, heart rate 75, respiratory rate 18, oxygen saturation 96%. HEENT: Pupils are equal and reactive. Oropharynx appears clear. Neck: Is supple. Chest: Reveals coarse rhonchi bilaterally. Cardiac exam: S1, S2. Abdomen: Is obese and soft with surgical dressings intact. Extremities: Reveal 1+ peripheral edema. LABORATORIES: Chest x-ray reveals vascular congestion. Arterial blood gas reveals pH 7.38, pCO2 of 46, pO2 of 99. Sodium 148, potassium 4.7, chloride 113, BUN 45, creatinine 1.7, glucose 187. Microbiology reveals no new data. IMPRESSION: A 58-year-old with 1. Diabetes mellitus with severe hyperglycemia on admission. 2. Acute hypoxemic respiratory failure. 3. Hemodynamic shock with resolution. 4. Duodenal ischemia, likely related to hypotension/low-flow. 5. Gastrointestinal bleeding without evidence of ongoing bleeding. 6. Acute renal failure. 7. Adrenal insufficiency. PLAN: 1. Tube feeds as tolerated. 2. Change fluids to D5W for ongoing hypernatremia. 3. Continue subcutaneous insulin. 4. Attempt diuretic trial now that the patient is having some clinical improvement. 5. Begin weaning trials tomorrow. Time spent in critical care management: 30+ minutes cc: Lamine Mohamud MD MTDD
--- NOTE | 2019-01-17 19:39 | GASTROENTEROLOGY PROGRESS NOTE ---
DATE: 01/17/2019 SUBJECTIVE: Patient remains on mechanical ventilation. He has oral gastric tube with feeding infusing, per nurse report he had low residuals today. Nurse reports a small black stool today. The patient has had a drop in his hemoglobin and hematocrit today. Yesterday hemoglobin and hematocrit was 9.1 and 26.1, today 7.1, 22.2. OBJECTIVE: Vital Signs: Temperature 99.2 degrees, pulse 78, respirations 29, blood pressure 107/60. General: Patient is sedated on mechanical ventilation. He is currently tolerating feeding per orogastric tube. Respiratory: Decreased breath sounds. Abdomen: Soft, some distention. Laparoscopic incisions clean, dry and intact. Orogastric tube in place with feeding infusing. LABORATORY: Hematology. WBC 10.75, hemoglobin 7.1, hematocrit 22.2, MCV 100.8, platelets 129,000. Chemistry. Sodium 148, potassium 4.7, chloride 113, CO2 25, BUN 45, creatinine 1.7, glucose 187, calcium 7.5, total bilirubin 0.50, AST 105, ALT 366. ASSESSMENT AND PLAN: 1. Acute gastrointestinal bleed from gastric ulcer with visible vessel treated. We will change his IV push PPI to IV Protonix drip. He has had a drop in his hemoglobin and hematocrit today. He had a small black stool. Will transfuse 2 units of packed red blood cells today. 2. Sepsis shock. Continue current resuscitation. 3. Anemia. Will continue to monitor and monitor for any further signs of active GI bleeding. Will transfuse 2 units of packed red blood cells today. 4. Acute kidney injury following with Nephrology. 5. Other medical problems including type 2 diabetes, chronic anticoagulation. Will continue to follow. Further plans to be made according to progress. I have discussed this case with Dr. Moody. Dictated by ANDI Martinez for Gurwinder Moody MD cc: ANDI Starks MD [facility]
[2019-01-18] MEDS: SORBITOL PO SCH ×2 (00:45→05:59)
[2019-01-18] MEDS: LASIX IV SCH (01:06)
[2019-01-18] MEDS: PROTONIX 80 MG in NS 80 ML IV SCH ×3 (01:07→22:33)
[2019-01-18] MEDS: MORPHINE IV PRN ×2 (03:40→23:31)
[2019-01-18] MEDS: SOLU-CORTEF IV SCH (03:41)
[2019-01-18 04:51] LABS: ALLEN TEST YES; BE 5.2 mmoll (-3.0-3.0); BLOOD TYPE ARTERIAL; O2(CT) 10.9 mL/dL (15.0-23.0); O2HB 95.8 % (95.0-99.0); PCO2(98.6) 44 mmHg (35-45); PO2(98.6) 93 mmHg (60-100); SAMPLE BLOOD; SAO2 98.6 % (95.0-100.0); SRATE 18 BPM; TVOL 500 mL; pH(98.6) 7.44 (7.35-7.45)
[2019-01-18 04:52] LABS: MODALITY VENTILATOR
[2019-01-18] MEDS: ZOSYN 3.375 GM in NS 50 ML IV SCH ×3 (04:55→19:53)
[2019-01-18] MEDS: HUMULIN R SUBQ SCH ×4 (06:47→20:49)
[2019-01-18] MEDS: ATIVAN 20 MG in NS 190 ML IV SCH (06:54)
[2019-01-18] MEDS: D5W 1,000 ML IV SCH (06:54)
[2019-01-18 06:56] LABS: BASO# 0.03 X1000 (0.0-0.2); BASO% 0.4 % (0.0-0.8); EOS# 0.16 X1000 (0.0-0.7); HEMOGLOBIN 10.2 g/dL (14.0-18.0); IMM GRAN# 0.03 X1000 (0.0-0.04); IMM GRAN% 0.4 % (0.0-0.5); LYMPH# 1.42 X1000 (1.2-3.4); LYMPH% 17.7 % (20.5-51.1); MCH 33.6 PG (27-31); MCV 98.7 FL (81-99); MONO# 0.68 X1000 (0.11-0.59); MONO% 8.5 % (1.7-9.3); NEUT# 5.71 X1000 (1.4-6.5); PLT 163 X1000 (130-400); RBC 3.04 XMIL (4.7-6.1); RDW 17.1 % (11.5-14.5); WBC 8.03 X1000 (4.8-10.8)
[2019-01-18] MEDS ORDERED: DIPRIVAN 1% IV PRN (07:15)
[2019-01-18] MEDS ORDERED: ROMAZICON IV ONE ×2 (07:15→12:38)
--- NOTE | 2019-01-18 07:20 | Diag Imaging Result Doc PS360 ---
EXAM: CHEST-PORTABLE 01/18/2019 HISTORY: dyspnea TECHNIQUE: AP portable at 0547 COMMENT: There is a left internal jugular central venous catheter with its tip at the confluence of the brachiocephalic veins. There is an endotracheal tube with its tip at thoracic inlet and an NG tube with its tip below the diaphragm. There is interstitial pulmonary edema. There is minimal platelike atelectasis in the left lower lobe. Compared to 01/17/2019 the pulmonary edema may be slightly improved. IMPRESSION: Slightly improved pulmonary edema. Electronically signed by Isidoro Blevins 01/18/2019 7:16 AM
[2019-01-18 07:22] LABS: ALBUMIN 2.8 g/dL (3.5-5.0); CALCIUM 7.6 mg/dL (8.8-10.2); CREATININE 2.1 mg/dL (0.7-1.2); MAGNESIUM 2.6 mg/dL (1.5-2.7); PHOSPHORUS 3.7 mg/dL (2.7-4.5); POTASSIUM 3.9 mmol/L (3.5-5.1); TOTAL BILIRUBIN 0.41 mg/dL (0.20-1.00); TOTAL PROTEIN 5.7 g/dL (6.3-8.3)
[2019-01-18] MEDS: LANTUS INSULIN SUBQ SCH (08:16)
--- NOTE | 2019-01-18 08:48 | GENERAL SURGERY PROGRESS NOTE ---
DATE: 01/18/2019 SUBJECTIVE: Patient seems to be doing okay. Nursing staff reports he has been relatively stable. He is off pressors. He is still having some dark tarry stools. OBJECTIVE: Vital Signs: Patient is currently afebrile. Pulse is in the 70s. Blood pressure in 110s systolic and he is off pressors. General: Sedated on the ventilator. Cardiovascular: Regular rate and rhythm. Lungs: Some coarse sounds noted. Abdomen: Soft, nondistended. LABORATORY: Pending from this morning. His most recent hematocrit yesterday was 24.2, white blood cell count yesterday was 10.7, platelet count 129,000. ABG from this morning reviewed. His lactic acid is 1.30. ASSESSMENT AND PLAN: A 58-year-old gentleman with diabetic ketoacidosis, GI bleed and potentially low-flow state to his intestines. 1. Diabetic ketoacidosis. At this time, his electrolytes seem to be improving. We will defer to the hospitalist. 2. GI bleed. At this time, he is still having dark tarry stools, but this may be residual from previous bleeds. We will continue to monitor his hematocrit. 3. Potential low-flow state to his intestines. At this time, I think he is doing okay. His lactic acid has normalized and he did have a little bit of shock liver-like picture several days ago which may be reflective of his low-flow state. We will continue to monitor. His liver function tests have improved. I suspect his bowel has perfusion at this point. We will continue to monitor. cc: Jef Munoz MD
[2019-01-18] MEDS: ZYVOX 600 MG/D5W 600 MG/300 ML IVPB IV SCH ×2 (09:55→21:22)
[2019-01-18 10:52] LABS: ALLEN TEST YES; BLOOD TYPE ARTERIAL; HCO3-(ACT) 27.2 mmoll (20.0-26.0); O2HB 95.3 % (95.0-99.0); PCO2(98.6) 43 mmHg (35-45); PO2(98.6) 86 mmHg (60-100); SAMPLE BLOOD; SAO2 98.2 % (95.0-100.0); THB 10.4 g/dL (11.5-17.4); pH(98.6) 7.42 (7.35-7.45)
[2019-01-18 10:53] LABS: MODALITY VENTILATOR
--- NOTE | 2019-01-18 12:20 | PROGRESS NOTE ---
DATE: 01/18/2019 SUBJECTIVE: This morning, Mr. Vergara continues to be intubated. Common- in law was at the bedside. No new complaints per the nursing staff. At the time of the evaluation, he was noted to have had a large bowel movement which was dark. OBJECTIVE: Current vitals: Blood pressure is 129/80, pulse of 74, respirations 19 and temperature is 98.0 degrees. General exam: Mr. Vergara, a 58-year-old male. He is in bed currently intubated. Seems to be synchronizing well with the ventilator. HEENT: Mucosa is pink and moist. Anicteric. Acyanotic. Neck: Supple. Chest: Air entry is bilaterally reduced with some transmitted sounds from the ventilator. Cardiovascular: Regular rate and rhythm. Abdomen: Soft. There are recent laparoscopic scars on anterior abdominal wall. : Dale catheter is in place. Extremities: No pedal edema. There is pneumatic compression on the lower extremities. CIVIL CELEBRANT: Patient will open the eyes to his name. Seems to follow some basic commands. Sedation is currently off because he is going through spontaneous breathing trial. LABORATORY DATA: Hemoglobin is 10.2. Other WBC and platelet counts are within normal range. ABG has been reviewed. Chemistry shows creatinine is 2.1, glucose is 254, albumin is 2.8. IMAGING STUDIES: Today, a chest x-ray shows slightly improved pulmonary edema. MICROBIOLOGY DATA: Blood cultures have been 48 hours negative. There was 1 that was coag- negative Staph, which we think is a contaminant. CURRENT MEDICATIONS: 1. Zyvox 600 q. 12 hours; today is day 5. 2. Zosyn 3.375 g every 8 hours; today is day 5. 3. Insulin at 30 units subcutaneous daily. 4. Sliding scale. 5. Morphine p.r.n. 6. The patient intake, output: Urine output was 3780. The patient is still a total positive balance of over 9000 mL. ASSESSMENT: 1. Shock on presentation, most likely hypovolemic shock with possible superimposed sepsis. The patient was on pressor for some time, but he is being currently not on any. Blood cultures have been negative. 2. Severe gastrointestinal bleed. The patient is status post esophagogastroduodenoscopy with findings include ulcer in the gastric body, and also a visible vessel in the stomach for which bipolar cautery was applied. The patient was on chronic anticoagulation with Coumadin. He is also on anti-platelet therapy with aspirin. All of these have been withheld. 3. Symptomatic anemia secondary to gastrointestinal bleed. Patient is status post 7 packed red blood cell transfusions, 1 fresh frozen plasma. Hemoglobin on admission was 5. This has improved to 10.2 this morning. The patient did have a large tarry black stool today. We are going to be following the hemoglobin and hematocrit. 4. Severe lactic acidosis on admission secondary to hyper perfused (ischemic) gut, improved. 5. Hypoxemic respiratory failure. Patient has continued to be on the ventilator. He is currently being weaned off. 6. Transient adrenal insufficiency. Blood pressures have been stabilized. We are going to continue to wean off the steroids. 7. Transaminitis, most likely due to shock liver, improved. 8. Acute on chronic kidney disease. Creatinine is fairly stable. Patient is making adequate urine. Nephrology is on board. 9. Uncontrolled diabetes mellitus on presentation, improved on insulin regimen. The patient's presenting A1c was 6.8. PLAN: So, in general, I think Mr. Vergara is hemodynamically stable. He has been off pressors for some time. Blood pressures continue to remain stable. He is making adequate urine. Creatinine remained stable. His hemoglobin and hematocrit is also stable. This morning he has had a very large dark bowel movement. We are going to follow up with the hemoglobin and hematocrit. He is currently going through spontaneous breathing treatment for possible extubation. I explained my findings and the plan with the common-law , who was at the bedside at the time of the encounter. cc: MD BRISEIDA Johnson
--- NOTE | 2019-01-18 14:51 | GASTROENTEROLOGY PROGRESS NOTE ---
DATE: 01/18/2019 SUBJECTIVE: Patient is currently intubated on mechanical ventilation. At the time of my visit he was undergoing weaning trials. He is currently off of sedation. He is off of vasopressors. Talked with family at the bedside. OBJECTIVE: Vital Signs: Temperature 98 degrees, pulse 75, respirations 18, blood pressure 111/69. General: The patient is with eyes closed intubated on mechanical ventilation but undergoing weaning trials. LABORATORY: Hematology. WBC 8.03, hemoglobin 10.2, hematocrit 30.0, this is after 2 units of packed red blood cells yesterday, MCV 98.7. Chemistry. Sodium 143, potassium 3.9, chloride 105, CO2 26, BUN 44, creatinine 2.1, glucose 197, total bilirubin 0.41, AST 48, ALT 259, alkaline phosphatase 92. ASSESSMENT AND PLAN: 1. Acute gastrointestinal bleed, gastric ulcer with visible vessel treated. Patient has had some black tarry stools yesterday. Nurse on day shift today does not report any black stools so far. He was changed from intravenous push proton pump inhibitor to intravenous Protonix drip. He received 2 units of packed red blood cells yesterday. His hemoglobin and hematocrit have improved. 2. Sepsis shock. Continued resuscitation. 3. Anemia. Continue to follow. Hemoglobin and hematocrit have improved after 2 units of packed red blood cells. 4. Acute kidney injury following with Nephrology. 5. Respiratory failure on mechanical ventilation. He is currently undergoing weaning trials. Will follow recommendations of pulmonology. 6. Will continue to follow for further evidence of active bleeding. Transfuse further packed red blood cells if needed. Continue IV Protonix drip. Will continue to follow. I have discussed this case with Dr. Moody. Dictated by ANDI Martinez for Gurwinder Moody MD cc: ANDI Starks MD
--- NOTE | 2019-01-18 16:39 | PROVIDER PROGRESS NOTE ---
Progress Note Subjective: sedated and intubated Objective: temp 98.8, pulse 71, respirations 18, blood pressure 102/63, 02 sat 98% on mechanical ventilation. General: white male lying in bed in no acute distress HEENT: Normocephalic, atraumatic. Trachea midline. Pale conjunctiva. Pupils equal and reactive to light. Skin: warm and dry. Neck: Supple, significant JVD appreciated. Cardiovascular: S1S2, regular rate and rhythm. No murmur or gallop noted. Respiratory: coarse anteriorly with equal air excursion. Abdomen: soft, obese, nondistended. Dressing to incision clean, dry, intact. : non-inspected. Dale in place. Extremities: no clubbing or cyanosis. 3 +pitting edema up,to his abdomen. Neurological: sedated with Ativan. Labs: WBC 8.03, hemoglobin 10.2, hematocrit 30, platelet count 163, sodium 143, potassium 3.9, chloride 105, carbon dioxide 26, BUN 44, creatinine 2.1. Intake 5840, output 3780. Impression: Acute on chronic kidney disease. multifactorial atn. Post op day 4 from exploratory lap. Continues to have a GI bleed. Creatinine had a small bump in the last 24 hours presumably from continued blood loss requiring transfusion. W ill continue to monitor. Blood pressure. Adequate. Anemia. Received 2 units PRBC yesterday Metabolic acidosis. Resolved. Hyperkalemia. Resolved Volume status. Overloaded. Stop D5W fluids. Hypernatremia. Increase free water flushes with paternal feedings to 1200ml/ day. Medication review. Zosyn. Renal dose?
[2019-01-19] MEDS: MORPHINE IV PRN (03:34)
[2019-01-19] MEDS: ZOSYN 3.375 GM in NS 50 ML IV SCH ×2 (03:34→12:35)
[2019-01-19 05:01] LABS: ALLEN TEST YES; BE 2.7 mmoll (-3.0-3.0); BLOOD TYPE ARTERIAL; HCO3-(ACT) 26.9 mmoll (20.0-26.0); METHB 1.1 % (0.0-1.5); O2(CT) 18.1 mL/dL (15.0-23.0); O2HB 93.6 % (95.0-99.0); PCO2(98.6) 50 mmHg (35-45); PO2(98.6) 82 mmHg (60-100); SAMPLE BLOOD; THB 13.7 g/dL (11.5-17.4); pH(98.6) 7.37 (7.35-7.45)
[2019-01-19 05:03] LABS: MODALITY BI PAP
[2019-01-19] MEDS: HUMULIN R SUBQ SCH ×3 (06:37→15:59)
--- NOTE | 2019-01-19 06:52 | Diag Imaging Result Doc PS360 ---
CHEST-PORTABLE - 01/19/2019 INDICATION: dyspnea COMPARISON: 01/18/2019 FINDINGS: The patient has been extubated. Lung volumes remain relatively low, stable from prior. Stable left central line in good position. Stable cardiomegaly and pulmonary vascular congestion. Stable hazy central infiltrates suggesting pulmonary edema. There are probably trace pleural effusions. IMPRESSION: Patient extubated. Otherwise no change from prior. Electronically signed by Jose Peña 01/19/2019 6:49 AM
[2019-01-19 07:14] LABS: BASO# 0.03 X1000 (0.0-0.2); BASO% 0.3 % (0.0-0.8); EOS# 0.21 X1000 (0.0-0.7); EOS% 2.3 % (0.0-10.0); HEMATOCRIT 27.1 % (42.0-52.0); HEMOGLOBIN 9.2 g/dL (14.0-18.0); IMM GRAN# 0.04 X1000 (0.0-0.04); IMM GRAN% 0.4 % (0.0-0.5); LYMPH# 1.21 X1000 (1.2-3.4); LYMPH% 13.3 % (20.5-51.1); MCH 34.3 PG (27-31); MCHC 33.9 g/dL (33-37); MCV 101.1 FL (81-99); MONO# 0.89 X1000 (0.11-0.59); MONO% 9.8 % (1.7-9.3); MPV 10.8 FL (7.4-10.4); NEUT# 6.73 X1000 (1.4-6.5); NEUT% 73.9 % (42.2-75.2); PLT 199 X1000 (130-400); RBC 2.68 XMIL (4.7-6.1); RDW 15.9 % (11.5-14.5); WBC 9.11 X1000 (4.8-10.8)
[2019-01-19 07:39] LABS: ALB/GLOB RATIO 1.1; ALBUMIN 3.2 g/dL (3.5-5.0); CALCIUM 8.1 mg/dL (8.8-10.2); CREATININE 1.7 mg/dL (0.7-1.2); MAGNESIUM 2.9 mg/dL (1.5-2.7); PHOSPHORUS 3.6 mg/dL (2.7-4.5); POTASSIUM 3.6 mmol/L (3.5-5.1); TOTAL BILIRUBIN 0.68 mg/dL (0.20-1.00); TOTAL PROTEIN 6.1 g/dL (6.3-8.3)
[2019-01-19] MEDS ORDERED: SOLU-CORTEF IV SCH (09:00)
[2019-01-19] MEDS: PROTONIX 80 MG in NS 80 ML IV SCH ×2 (09:29→20:58)
[2019-01-19] MEDS: LANTUS INSULIN SUBQ SCH (10:23)
[2019-01-19] MEDS: ZYVOX 600 MG/D5W 600 MG/300 ML IVPB IV SCH ×2 (10:24→20:58)
--- NOTE | 2019-01-19 11:46 | GENERAL SURGERY PROGRESS NOTE ---
DATE: 01/19/2019 SUBJECTIVE: Patient is doing okay. He was extubated yesterday to BiPAP. He seems to be doing okay. He has had more bowel movements but not all of them have been described as black and tarry. OBJECTIVE: Vital Signs: Patient is currently afebrile. Pulse is 61, blood pressure 159/91, O2 saturation 98%. General: Resting. Cardiovascular: Regular rate and rhythm. Lungs: Some coarse sounds noted. Abdomen: Soft, appropriately tender. LABORATORY DATA: Currently pending but his hematocrit yesterday was 30. He did get 2 units of blood. His ABG this morning was reviewed. ASSESSMENT AND PLAN: A 58-year-old with diabetic ketoacidosis, gastrointestinal bleed and potentially low-flow state to his intestines, status post diagnostic laparoscopy. 1. Diabetic ketoacidosis. At this time, essentially looks like it has been resolved. Electrolytes seem to be okay. 2. Gastrointestinal bleed. At this time, we will continue to follow his hematocrit. He was transfused yesterday. He has had some reported dark, tarry stools. He is still on Protonix. 3. Potential low-flow state to his intestines. At this time, he is hemodynamically stable. We will just have to monitor. He did not have any full-thickness ischemia noted on laparoscopy. 4. Postoperative state. At this time, he has been extubated. We would like to see how he does and how well he stabilizes his respiratory status before we start him on oral intake, but once everybody thinks he is stable from extubation, we can start him on clear liquids. cc: Jef Munoz MD
--- NOTE | 2019-01-19 13:31 | PROVIDER PROGRESS NOTE ---
Progress Note Subjective: pt lying in bed, aroused to verbal stimuli. Denies any uremic complaints. Objective: temp 97.6, pulse 61, respiration 16, blood pressure 159/91, 02 sat 98% on 30% BIPAP. General: white male lying in bed in no acute distress with restraints in place. HEENT: Normocephalic, atraumatic. Trachea midline. Pale conjunctiva. Pupils equa l and reactive to light. Skin: warm and dry. Neck: Supple, JVD appreciated. Cardiovascular: S1S2, bradycardic regular rate and rhythm. No murmur or gallop noted. Respiratory: coarse anteriorly with equal air excursion. Accessory muscles used. Abdomen: soft, obese, nondistended. Laparoscopic incisions clean, dry, intact. : non-inspected. Dale in place. Extremities: no clubbing or cyanosis. 2+pitting edema up to his abdomen. Neurological: drowsy, oriented to person and place. Labs: WBC 9.1, hemoglobin 9.2, hematocrit 27.1, platelet count 199, sodium 148, potassium 3.6, chloride 109, carbon dioxide 25, BUN 39, creatinine 1.7. Intake 1375, output 1750. Impression: Acute on chronic kidney disease. Likely multifactorial acute tubular necrosis. Creatinine improved to 1.7 today. No changes. Blood pressure. In target. Anemia. Low, still has a GI bleed. Continue to trend. Metabolic acidosis. Resolved. Hyperkalemia. Resolved Volume status observed. Hypernatremia. Encourage fluid intake now that he does not have a nasogastric tube. Medication review. No changes.
--- NOTE | 2019-01-19 18:12 | PROGRESS NOTE ---
DATE: 01/19/2019 SUBJECTIVE: This morning, Mr. Vergara refers to be doing fairly okay. He was extubated yesterday. He is requesting to have sips of water. OBJECTIVE: Vital signs: Blood pressure is 144/89, pulse of 69, respirations 17. Temperature is 98.4 degrees. The patient is saturating 96% on 2 L. General: Mr. Archuleta is a 58-year-old, male. He is in bed. He is not in any cardiopulmonary distress. HEENT: Mucosa is pink and moist. Anicteric, acyanotic. Neck: Supple. There is an IJ central line on the left side of the neck. Chest: Good air entry bilaterally. A few crackles in the posterior lung carroll. Cardiovascular: Regular rate and rhythm. No murmurs. No rubs. No gallops. Gastrointestinal: Abdomen is soft, minimally distended. Recent laparoscopic scars on the anterior abdominal wall. Dale catheter is in place. Extremities: No pedal edema. Distal pulses present. Central nervous system: Patient is awake, alert, and oriented. I's and O's, urine output was 2350. The patient is still currently positive balance. LABORATORY DATA: This morning, WBC is 9.11, hemoglobin is 9.2, platelet count of 199,000. Chemistry is also reviewed. Sodium is 148, potassium is 3.6, chloride is 109. The patient's creatinine is down to 1.7 today. MICROBIOLOGY DATA: No changes. IMAGING: A chest x-ray this morning continues to show low lung volumes, stable cardiomegaly, and pulmonary vascular congestion. CURRENT MEDICATIONS: Include Zosyn, insulin, Zyvox, p.r.n. Ativan. ASSESSMENT/PLAN: 1. Shock on presentation, most likely hypovolemic shock. The patient did need pressor for some time. He is currently off pressors. Blood cultures have been negative. 2. Severe gastrointestinal bleed. The patient is status post EGD with findings including ulcer in the gastric body and a visible vessel in the stomach which bipolar cautery was applied. Mr. Jai frazier was also on Coumadin and anti-platelet therapy. 3. Symptomatic anemia with presenting hemoglobin of 5.0. The patient is status post 7 PRBC transfusions and 1 FFP. Hemoglobin and hematocrit is 9.2 this morning. We are going to continue to be trending this. He seems to continue having some dark melenic stool. 4. Severe lactic acidosis on admission secondary to ischemic gut. Improved. Patient is s/p diagnostic laparoscopy. 5. Acute hypoxemic respiratory failure. Patient has successfully been extubated. He is currently on nasal cannula. 6. Transient adrenal insufficiency. The patient does not need steroids anymore. He has been successfully weaned off. 7. Transaminitis secondary to shock liver. Improved. 8. Acute nonoliguric kidney injury on chronic kidney disease. The patient's creatinine is slightly down to 1.7. He continues to make adequate urine. Nephrology is on board. 9. Diabetes mellitus. The patient is on insulin regimen. 10. Nutritional needs: Mr. Vergara is currently NPO. We are going to get a bedside swallow evaluation. We will also get him some ice chips, and wait on Surgery and GI to make sure that we can start using the enteral route. cc: Elias Pitts MD MTDD
--- NOTE | 2019-01-19 23:10 | GASTROENTEROLOGY PROGRESS NOTE ---
DATE: 01/19/2019 SUBJECTIVE: The patient is sitting up in a chair. He has been extubated. He is on O2 by nasal cannula. He has family at the bedside. The patient had an EGD on 01/14/2019 that showed normal esophagus; a single nonbleeding round shallow ulcer measuring 20 x 30 mm in size, with visible vessel found in the gastric body, with cautery applied. The patient has had some black stools off and on. Per intake and output report today, his stool color was brown and green. There have been no reported black stools today. OBJECTIVE: Vital signs: Temperature 100.5 degrees, pulse 56, respirations 19, blood pressure 124/84. Generally at the time of my evaluation the patient was sitting up in a chair. He had been extubated. LABORATORY DATA: Hematology: WBC 9.11, hemoglobin 9.2, hematocrit 27.1, MCV 101.1, platelets 199,000. Chemistry: Sodium 148, potassium 3.6, chloride 109, CO2 is 25, BUN 39, creatinine 1.7, glucose 79, total bilirubin 0.6, AST 36, ALT 188, alkaline phosphatase 86. ASSESSMENT AND PLAN: 1. Septic shock. The patient has now been extubated and he is off vasopressors. 2. Gastrointestinal bleeding. The patient had laparoscopic evaluation along with esophagogastroduodenoscopy that showed an ulcer in the gastric body and visible vessel in the stomach that was treated. 3. Respiratory failure. The patient has now been extubated and is on oxygen via nasal cannula. 4. Elevated liver function tests are improving. 5. Acute/chronic kidney disease. Following with Nephrology. 6. We will continue to follow. He has had some black stools off and on, but so far today there have been no reported black stools. He did have a slight drop in his hemoglobin and hematocrit today. He received 2 units of packed red blood cells the day before. We will continue to follow for any further signs of active bleeding. Transfuse further packed red blood cells if needed. I have discussed this case with Dr. Moody. Dictated by ANDI Martinez for Gurwinder Moody MD cc: ANDI Starks MD
[2019-01-20] MEDS: HUMULIN R SUBQ SCH ×5 (01:42→21:42)
[2019-01-20] MEDS: ZYVOX 600 MG/D5W 600 MG/300 ML IVPB IV SCH ×3 (01:44→22:22)
[2019-01-20] MEDS: ZOSYN 3.375 GM in NS 50 ML IV SCH ×4 (01:48→21:00)
[2019-01-20] MEDS: PROTONIX 80 MG in NS 80 ML IV SCH ×2 (07:42→17:38)
[2019-01-20 08:02] LABS: HEMATOCRIT 34.6 % (42.0-52.0); HEMOGLOBIN 11.3 g/dL (14.0-18.0); MCH 33.4 PG (27-31); MCHC 32.7 g/dL (33-37); MCV 102.4 FL (81-99); MPV 10.8 FL (7.4-10.4); RBC 3.38 XMIL (4.7-6.1); RDW 15.9 % (11.5-14.5); WBC 7.79 X1000 (4.8-10.8)
[2019-01-20 08:14] LABS: ALBUMIN 2.7 g/dL (3.5-5.0); CALCIUM 7.9 mg/dL (8.8-10.2); CREATININE 1.3 mg/dL (0.7-1.2); PHOSPHORUS 3.5 mg/dL (2.7-4.5); POTASSIUM 3.7 mmol/L (3.5-5.1)
[2019-01-20] MEDS: LANTUS INSULIN SUBQ SCH (09:16)
--- NOTE | 2019-01-20 10:02 | GENERAL SURGERY PROGRESS NOTE ---
DATE: 01/20/2019 The patient seems to be doing well. He has been extubated for over 36 hours. He is stating he is feeling a lot better. He has had bowel movements and they do not seem to be dark and tarry but his hematocrit is down to 27. At this point, he has been hemodynamically stable and his respiratory status has been stable, so I think it is safe to start him on clear liquids. From a surgical point of view, he can probably go to the floor or the CICU but will defer to the hospitalist. My partners will cover while I am gone over the holiday. cc: Jef Munoz MD
--- NOTE | 2019-01-20 11:47 | PROVIDER PROGRESS NOTE ---
Progress Note Subjective: Standing with therapy. Denies any uremic complaints. Objective: temp 97.6, pulse 61, respiration 16, blood pressure 159/91, 02 sat 98% on 30% BIPAP. NC 2 liters now. General: white male in no acute distress with restraints in place. HEENT: Normocephalic, atraumatic. Trachea midline. Pale conjunctiva. Pupils equal and reactive to light. Skin: warm and dry. Neck: Supple, JVD appreciated. Cardiovascular: S1S2, bradycardic regular rate and rhythm. No murmur or gallop noted. Respiratory: coarse anteriorly with equal air excursion. Accessory muscles used. Abdomen: soft, obese, nondistended. Laparoscopic incisions clean, dry, intact. : non-inspected. Dale in place. Extremities: no clubbing or cyanosis. 2+pitting edema up to his abdomen. Neurological: drowsy, oriented to person and place. Labs: WBC 9.1, hemoglobin 9.2, hematocrit 27.1, platelet count 199, sodium 148, potassium 3.6, chloride 109, carbon dioxide 25, BUN 39, creatinine 1.7. Intake 1375, output 1750. Impression: Acute on chronic kidney disease. Likely multifactorial acute tubular necrosis. Continues to improve. We will sign off today. Please call if I can be of assistance. Blood pressure. In target. Anemia. Low, still has a GI bleed. Continue to trend. Metabolic acidosis. Resolved. Hyperkalemia. Resolved Volume status observed.
--- NOTE | 2019-01-20 14:58 | PROGRESS NOTE ---
DATE: 01/20/2019 SUBJECTIVE: This morning, Mr. Vergara refers to be doing a lot better. He was actually sitting up in a chair at the time of the encounter. OBJECTIVE: Vital Signs: Blood pressure is 147/85, pulse of 55, respirations are 17, temperature is 98.0 degrees. General Examination: Mr. Vergara is a 58-year-old, gentleman. He was sitting up in a chair. No distress. HEENT: Mucosa is pink and moist. Anicteric. Acyanotic. Neck: Supple. Chest: Good air entry bilaterally. There were no crepitations. No rhonchi. Cardiovascular: Regular rate and rhythm. No murmurs, no rubs, no gallops. GI: Abdomen is soft, distended. Still some laparoscopic incisions on the anterior abdominal wall. Dale catheter has been removed. Extremities: Trace of pedal edema. Distal pulses present. 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 There is no focal neurological deficit. Laboratory Data: WBCs 7.79, hemoglobin is 11.3, platelet count of 155,000. Chemistry is also reviewed. BUN is down to 30 and creatinine is also down to 1.3. So far, the patient's Is and Os, urine output was about 1060. He is still kind of positive balance of about 10,000 but he is making adequate urine. MEDICATIONS: Current medications have all been reviewed. The patient is on: 1. Insulin 30 units subcutaneous. 2. Sliding scale. 3. Zyvox 600 mg IV q.12. 4. Pantoprazole. 5. Zosyn 3.375 g every 8 hours. ASSESSMENT: 1. Shock on presentation, most likely hypovolemic shock. The patient did need pressors for some time. He is currently off pressors. Blood pressures are fine. His blood cultures have also been negative. 2. Severe gastrointestinal bleed. The patient is status post esophagogastroduodenoscopy. Findings included an ulcer in the gastric body and a visible ulcer in the stomach to which bipolar cautery was applied. Of note, Mr. Vergara was also on Coumadin and on antiplatelet therapy. 3. Symptomatic anemia, on admission. Presenting hemoglobin was 5.0. The patient is status post 7 units of packed red blood cell transfusion and 1 fresh frozen plasma. The hemoglobin this morning is up to 11.3. Significant improvement. 4. Severe lactic acidosis on admission secondary to ischemic gut, improved. The patient is status post diagnostic laparoscopy. 5. Acute hypoxemic respiratory failure, resolved. The patient has successfully been extubated. 6. Transient adrenal insufficiency, resolved. 7. Transaminitis secondary to shock liver, resolved. 8. Nonoliguric acute kidney injury, presumably from acute tubular necrosis. Creatinine is trending down. The patient continues to make adequate urine. 9. Diabetes mellitus, stabilized on insulin regimen. 10. Nutritional needs. The patient has been tolerating his clear liquids. We are going to advance this to a full liquid diet and hopefully advance that tomorrow to a gastrointestinal soft. 11. History of atherosclerotic disease. PLAN: Mr. Vergara tells me today that he has had multiple arterial femoral bypasses done. He has also had a stent in his coronary a couple years ago. It is fair to assume that he also has mesenteric atherosclerosis that predisposed him to when he became severely hypotensive. Mr. Vergara today is very stable. We are going to transfer him from the ICU to the surgical floor. We will continue with physical therapy and his current antibiotics. I am also going to switch his PPI to b.i.d. cc: Elias Pitts MD
--- NOTE | 2019-01-20 17:31 | GASTROENTEROLOGY PROGRESS NOTE ---
DATE: 01/20/2019 SUBJECTIVE: Patient is awake and alert. He is about to work with physical therapy at the time of my visit. He is tolerating liquids. Per intake and output report, there has been no evidence of active GI bleeding over the last several days. He has had documented brown and green stools, not black tarry. Last documented black tarry stool was on 01/18/2019. His hemoglobin and hematocrit have improved today. Hemoglobin 11.3, hematocrit 34.6. OBJECTIVE: Vital Signs: Temperature 98.0 degrees pulse 54, respirations 20, blood pressure 158/87. General: The patient is awake and alert, in no acute distress. Abdomen: Soft, only mild tenderness. LABORATORY: Hematology: WBC 7.79, hemoglobin 11.3, hematocrit 34.6, MCV 102.4. Chemistry: Sodium 142, potassium 3.7, chloride 106, CO2 of 22, BUN 30, creatinine 1.3, glucose 132. Liver function test on 01/19/2019, show total bilirubin 0.68, AST 36, ALT 188, alkaline phosphatase 86. ASSESSMENT: 1. Gastrointestinal bleeding seems to have resolved. His hemoglobin and hematocrit have improved today. He had an EGD that showed ulcer in the gastric body and a visible vessel in the stomach that was treated. 2. Respiratory failure. Patient has now been extubated. 3. Elevated liver function tests are improving. 4. Acute/chronic kidney disease. He has been followed by Nephrology. PLAN: We will continue to monitor and monitor for signs of active bleeding. His hemoglobin and hematocrit have improved today, and he has not had any documented melena over the last 2 days. We will sign off for now. On-call GI doctor will be available if needed. Please consult them if needed. Otherwise, we will follow back on Friday. I have discussed this case with Dr. Moody. Further plans will be made according to patient's progress. Dictated by ANDI Martinez for Gurwinder Moody MD cc: ANDI Starks MD [facility]
[2019-01-21] MEDS: PROTONIX 80 MG in NS 80 ML IV SCH ×3 (03:46→22:29)
[2019-01-21] MEDS: ZOSYN 3.375 GM in NS 50 ML IV SCH ×3 (04:53→20:08)
[2019-01-21] MEDS: HUMULIN R SUBQ SCH ×4 (06:44→20:46)
[2019-01-21 07:04] LABS: HEMATOCRIT 28.3 % (42.0-52.0); HEMOGLOBIN 10.3 g/dL (14.0-18.0); MCH 36.8 PG (27-31); MCHC 36.4 g/dL (33-37); MCV 101.1 FL (81-99); MPV 9.8 FL (7.4-10.4); RBC 2.8 XMIL (4.7-6.1); RDW 15.3 % (11.5-14.5); WBC 7.93 X1000 (4.8-10.8)
[2019-01-21 07:16] LABS: CREATININE 1.3 mg/dL (0.7-1.2); PHOSPHORUS 3.1 mg/dL (2.7-4.5); POTASSIUM 3.7 mmol/L (3.5-5.1)
[2019-01-21] MEDS: ZYVOX 600 MG/D5W 600 MG/300 ML IVPB IV SCH ×2 (09:50→22:06)
[2019-01-21] MEDS: LANTUS INSULIN SUBQ SCH (10:01)
--- NOTE | 2019-01-21 10:57 | PROGRESS NOTE ---
DATE: 01/21/2019 Mr. Vergara is awake and he is alert. He wanted me to dial some numbers on his phone. He is feeling better. PHYSICAL EXAMINATION: Vital signs: Today, remains afebrile, temperature 98.6 degrees, pulse 50, respirations 16, blood pressure 146/81. HEENT: Pupils are equal and round. Lungs: Clear in all lung carroll. Cardiovascular: Regular rhythm and rate without murmur or S3. Abdomen: Soft. Skin: Warm and dry. Urine output is 3200 mL. ASSESSMENT AND PLAN: 1. Presented with shock, most likely hypovolemic shock and needs some pressors for some time. He is currently off pressors. Blood pressure is doing better. 2. Severe gastrointestinal bleed status post EGD. Findings include ulcer in the gastric body and visible ulcer in the stomach which required bipolar cautery. He is also on Coumadin and on anti-platelet therapy. 3. Symptomatic anemia on admission. Presented with hemoglobin of 5. His lab hemoglobin is 10, hematocrit 28, MCV is 101. 4. Severe lactic acidosis secondary to ischemic gut, which is improved. 5. Acute hypoxemic respiratory failure, which he has been successfully extubated and air and gas exchange improved. 6. Transient adrenal insufficiency, resolved. 7. Transaminitis secondary to liver shock, which is resolved. 8. Nonoliguric acute kidney injury, presumably from acute tubular necrosis and his creatinine is slowly improving. 9. Diabetes mellitus type 2. Sugars under good control. 10. He is tolerating liquid clear liquids and advanced him to a full liquid diet and will try soft diet today. 11. History of atherosclerotic heart disease. REVIEW OF ORDERS: I do not see any change. He is still on Protonix IV drip. He is getting Zosyn 3.375 g IV q.8h and linezolid 600 mg IV q.12. We will advance him to a soft gastrointestinal diet. cc: Bernardo Sosa MD
--- NOTE | 2019-01-21 11:09 | GENERAL SURGERY PROGRESS NOTE ---
DATE: 01/21/2019 SUBJECTIVE: He feels well. He is tolerating a diet. No abdominal pain. No further bleeding. No fevers. OBJECTIVE: Vital Signs: Pulse 53, blood pressure 146/81, oxygen saturation 98% on 3 liters. General: He is alert. Cardiovascular: Normal rate. Pulmonary: No increased work of breathing. Abdomen: His abdomen is soft, nontender, nondistended. DIAGNOSTIC DATA: White count 7, hematocrit 28; this has fluctuated; it has been as low as 22 to 27, most recently 34. Creatinine is 1.3 and it is down; this is as low as it has been since he has been here. ASSESSMENT AND PLAN: A 58-year-old gentleman admitted with acute diabetic ketoacidosis, hypovolemia, anemia, and concerns for a concerning abdominal exam. He had a diagnostic laparoscopy. He is on a proton pump inhibitor drip. He is found to have a peptic ulcer and being managed appropriately for this. His incision intact. We will continue to follow along. cc: Elzbieta Easley MD
[2019-01-21] MEDS ORDERED: ATIVAN PO SCH (21:00)
[2019-01-22] MEDS: ZOSYN 3.375 GM in NS 50 ML IV SCH ×2 (04:00→12:54)
[2019-01-22 06:31] LABS: HEMATOCRIT 30.1 % (42.0-52.0); HEMOGLOBIN 10.3 g/dL (14.0-18.0); MCHC 34.2 g/dL (33-37); MCV 99.3 FL (81-99); MPV 9.5 FL (7.4-10.4); RBC 3.03 XMIL (4.7-6.1); RDW 14.9 % (11.5-14.5); WBC 6.49 X1000 (4.8-10.8)
[2019-01-22] MEDS: HUMULIN R SUBQ SCH ×2 (06:32→13:01)
[2019-01-22 07:04] LABS: ALBUMIN 2.9 g/dL (3.5-5.0); CREATININE 1.4 mg/dL (0.7-1.2); PHOSPHORUS 3.1 mg/dL (2.7-4.5); POTASSIUM 4.3 mmol/L (3.5-5.1)
--- NOTE | 2019-01-22 07:19 | Diag Imaging Result Doc PS360 ---
EXAM: CHEST-1 VIEW HISTORY: SOB TECHNIQUE: Single view COMPARISON: 01/19/2019 FINDINGS: Poor inspiratory effort. No change in the right jugular line. The heart is mildly enlarged and there is pulmonary edema. Small right effusion. The overall appearance is fairly similar to that of the prior exam. IMPRESSION: Stable chest Electronically signed by Roman Heaton 01/22/2019 7:16 AM
[2019-01-22] MEDS: LANTUS INSULIN SUBQ SCH (08:23)
[2019-01-22] MEDS ORDERED: PROTONIX PO SCH (09:00)
[2019-01-22 11:56] VITALS: BP 153/71
--- NOTE | 2019-01-22 12:10 | GENERAL SURGERY PROGRESS NOTE ---
DATE: 01/22/2019 SUBJECTIVE: He feels well. He is tolerating diet and ambulating. He wants to go home. OBJECTIVE: No fevers. Pulse 68, blood pressure 140/54, oxygen saturation 94%. General: He is alert. Cardiovascular: Normal rate. Pulmonary: No increased work of breathing. Abdomen: Soft, nontender. LABORATORY DATA: White count 6, hematocrit stable at 30, creatinine is 1.4. Glucose has been 150s to 210. ASSESSMENT/PLAN: This is a 58-year-old male with diabetic ketoacidosis, gastrointestinal bleeds, status post diagnostic laparoscopy. He is doing well from a surgical standpoint. He can go home and follow up with Dr. Munoz in a week. Otherwise, we will defer management to Medical Services. cc: Elzbieta Easley MD
[2019-01-22] MEDS: ZYVOX 600 MG/D5W 600 MG/300 ML IVPB IV SCH (12:53)
--- NOTE | 2019-01-22 18:59 | DISCHARGE SUMMARY ---
ADMISSION DATE: 01/13/2019 DISCHARGE DATE: 01/22/2019 CONSULTATION DURING THIS ADMISSION: 1. Nephrology was consulted, patient was seen by Dr. Mckeon. 2. Pulmonary Medicine was consulted, patient was seen by Dr. Guerra; Followed up by Dr. Mohamud. 1. Surgery was consulted, patient was seen by Dr. Munoz; followed up by Dr. Easley. 2. GI was consulted, patient was seen by Dr. Moody. INVASIVE PROCEDURES DONE DURING THIS ADMISSION: 1. A diagnostic laparoscopy was done by Dr. Munoz on 01/14/2019. During that same procedure, an EGD was done by Dr. Moody. ADMISSION DIAGNOSES: 1. Upper GI bleed. 2. Chronic anticoagulation. 3. Diabetes mellitus. 4. Possible sepsis. DIAGNOSES AT THE TIME OF DISCHARGE: 1. Shock on presentation secondary to hypovolemia. 2. Severe GI bleed. The patient is status post EGD with findings including an ulcer in the gastric body and a visible ulcer in the stomach to which bipolar cautery was applied. 3. Symptomatic anemia on admission. Presenting hemoglobin was 5.0. The patient was transfused 7 units of PRBCs and 1 FFP. 4. Severe lactic acidosis secondary to ischemia to the bowel. The patient is status post diagnostic laparoscopy, bowel is viable. 5. Acute hypoxemic respiratory failure. The patient was intubated for some part of his hospital course, successfully extubated and doing well. 6. Transient adrenal insufficiency, resolved. 7. Transaminitis secondary to shocked liver, resolved. 8. Nonoliguric acute kidney injury secondary to ATN, improving. 9. Diabetes mellitus, controlled. 10. History of atherosclerotic disease. The patient is status post multiple vascular surgeries including bifemoral aortic bypasses. IMAGING STUDIES OF SIGNIFICANCE: Multiple chest x-rays were done. DISCHARGE MEDICATIONS: 1. Amlodipine 5 mg p.o. daily. 2. Aspirin 81 mg p.o. daily. 3. Farxiga 10 mg p.o. daily. 4. Fenofibrate 54 mg p.o. daily. 5. [place]-3 fatty acids. 6. Warfarin b.i.d. 7. Pantoprazole 40 mg b.i.d. PRESENTING COMPLAINT: Dark stools for the past 4 days. HISTORY OF PRESENTING COMPLAINT: Mr. Vergara is a 58-year-old gentleman who is known to have diabetes, coronary artery disease, hypertension, chronic anticoagulation with Coumadin and also on aspirin, who came to the emergency department because of dark stool. He was also found to be in lactic acidosis and elevated glucose, at some point it was suspected he had DKA and possible sepsis. He was admitted to the ICU. HOSPITAL COURSE: Mr. Vergara was found to be in shock. He did need pressors for some time. He was intubated for respiratory failure. Pulmonary Medicine was consulted, because of his dark stool GI was also consulted, as well as Surgery. The patient was sent to OR for diagnostic laparoscopy. During the same setting an EGD was done. They did find some abnormalities of the gut, but it all of seems to watershed area but viable. He remained under the vent for a couple days and was successfully extubated. During the hospital course his creatinine got a hit, went to 3.3, which progressively got better and is stabilized at about 1.3-1.4. Mr. Vergara was transferred from the ICU to the medical floor. He continued to show significant improvement. His blood cultures came back negative for 5 days, only 1 was positive for coagulase- negative which we think it was a contaminant. Mr. Vergara was also seen by Nephrology during the hospital course because of acute kidney injury. He continues to make adequate urine and his creatinine continues to stabilize. Mr. Vergara was also evaluated by physical therapy on multiple occasions including today. He has been able to do 450 full weightbearing, contact guard with front wheel walker. He is doing a lot better, we think he is stable for discharge. He is going to follow up with the subspecialties that have been involved with his care. Other discharge instructions have been discussed with him and he voiced understanding. At the time of discharge, his vitals, blood pressure is 153/71, pulse of 89, respirations 18, temperature 98.3 degrees. We think he is stable to go home. Time spent for discharge is 38 minutes. cc: MD Gurwinder Johnson MD Matthew L. Figh, MD MTDD
== END 2019-01-22 15:15 | disposition home or self-care (01) | DRG 326 ==
LOC: ED 21:49 → SUATTDRO 21:50 → ICU 01-14 01:36 → SUATTDRO 01-14 01:36 → 4N 01-20 14:11
PROVIDERS: ATTEND Internal Medicine
PROC: EN.HEAT (2019-01-14 11:05)

== ENCOUNTER 2019-05-03 05:09 | Inpatient (IN) ==
[2019-04-26 11:48] LABS: HEMATOCRIT 42.2 % (42.0-52.0); MCH 31.7 PG (27-31); MCHC 33.2 g/dL (33-37); MCV 95.5 FL (81-99); MPV 9.5 FL (7.4-10.4); RBC 4.42 XMIL (4.7-6.1); RDW 14.8 % (11.5-14.5); WBC 9.79 X1000 (4.8-10.8)
[2019-04-26 12:26] LABS: AGAP 15; BUN 21 mg/dL (8-22); CALCIUM 10.5 mg/dL (8.8-10.2); CHLORIDE 96 mmol/L (98-107); COSMO 277; CREATININE 1.1 mg/dL (0.7-1.2); ESTIMATED GFR > 60; GLUCOSE 164 mg/dL (70-104); POTASSIUM 4.6 mmol/L (3.5-5.1); SODIUM 135 mmol/L (136-145); TCO2 24 mmol/L (25-35)
[2019-05-03] MEDS ORDERED: LR 0 ML ONE (05:38)
[2019-05-03] MEDS ORDERED: MEFOXIN 2 GM/D5W 2 GM/50 ML IVPB ONE (05:38)
[2019-05-03] MEDS ORDERED: FENTANYL ONE (06:19)
[2019-05-03] MEDS ORDERED: VERSED ONE (06:19)
[2019-05-03] MEDS ORDERED: DIPRIVAN 1% ONE (06:19)
[2019-05-03] MEDS ORDERED: SODIUM CHLORIDE 0.9% 10 ML ONE (06:23)
[2019-05-03] MEDS ORDERED: QUELICIN (DOSE) ONE (06:23)
[2019-05-03] MEDS ORDERED: NORCURON ONE ×2 (06:23→08:38)
[2019-05-03] MEDS ORDERED: ROBINUL ONE (06:23)
[2019-05-03] MEDS ORDERED: SENSORCAINE-MPF 0.5%/EPI 1:200,000 ONE (06:24)
[2019-05-03] MEDS ORDERED: XYLOCAINE 1% ONE (06:24)
[2019-05-03] MEDS ORDERED: LR 1,000 ML ONE ×2 (06:25→11:33)
[2019-05-03] MEDS ORDERED: EXPAREL 1.3% ONE (06:53)
[2019-05-03] MEDS ORDERED: MARCAINE 0.25% ONE (06:53)
[2019-05-03] MEDS ORDERED: EPHEDRINE ONE (07:08)
[2019-05-03 07:41] LABS: URINE SOURCE CATH
[2019-05-03 07:46] LABS: BILIRUBIN URINE NEGATIVE (NEGATIVE); BLOOD URINE NEGATIVE (NEGATIVE); COLOR YELLOW; GLUCOSE URINE >1000 mg/dL (NEGATIVE); KETONE URINE NEGATIVE (NEGATIVE); LEUKOCYTES URINE NEGATIVE (NEGATIVE); NITRITE URINE NEGATIVE (NEGATIVE); PROTEIN URINE NEGATIVE (NEGATIVE); SP GRAVITY URINE 1.015; TURBIDITY URINE CLEAR (CLEAR); UROBILINOGEN URINE NORMAL (NORMAL)
[2019-05-03 07:47] LABS: UR EPITHELIAL CELLS <10 /HPF (<10); URINE BACTERIA NEGATIVE /HPF; URINE RBC <10 /HPF (<10); URINE WBC <10 /HPF (<10)
[2019-05-03] MEDS ORDERED: NEO-SYNEPHRINE ONE (08:02)
[2019-05-03] MEDS ORDERED: OFIRMEV 1000 MG/ISOTONIC SOLN 1,000 MG/100 ML BOTTLE ONE (09:54)
[2019-05-03] MEDS ORDERED: ZOFRAN ONE (09:58)
[2019-05-03] MEDS ORDERED: DECADRON ONE (09:58)
[2019-05-03] MEDS ORDERED: BRIDION ONE (10:45)
[2019-05-03] MEDS ORDERED: DILAUDID PCA VIAL ONE (11:45)
[2019-05-03] MEDS ORDERED: DILAUDID ONE (11:59)
[2019-05-03] MEDS ORDERED: ATARAX PO PRN (12:00)
[2019-05-03] MEDS ORDERED: SODIUM CHLORIDE 0.9% INJ PRN (12:00)
[2019-05-03] MEDS ORDERED: ZOFRAN IV PRN (12:00)
[2019-05-03] MEDS ORDERED: NARCAN IV PRN (12:00)
[2019-05-03] MEDS ORDERED: PHENERGAN IV PRN (12:00)
[2019-05-03] MEDS ORDERED: BENADRYL IV PRN (12:00)
[2019-05-03] MEDS ORDERED: NARCAN 0.4 MG in LR 1,000 ML IV PRN (12:00)
--- NOTE | 2019-05-03 12:03 | OPERATIVE NOTE ---
PROCEDURE DATE: 05/03/2019 PREOPERATIVE DIAGNOSIS: Proximal gastric cancer. POSTOPERATIVE DIAGNOSIS: Proximal gastric cancer. PROCEDURES PERFORMED: 1. Ultrasound-guided right internal jugular vein central line placement. 2. Diagnostic laparoscopy for staging purpose. 3. Open mobilization of splenic flexure. 4. Open total gastrectomy with Candace-en-Y esophagojejunal anastomosis. 5. Open jejunostomy. SURGEON: Jef Munoz M.D. CONSTRUCTION PROJECT MANAGER: Dr. Martini. Dr. Martini assisted with the entirety of the case. His presence was crucial to completion of the case. ANESTHESIA: General endotracheal. INTRAOPERATIVE FINDINGS: Proximal mass. Two donuts noted on the anastomosis of the jejunum to the esophagus. No intraperitoneal carcinomatosis or masses appreciated. Mass was proximal. COMPLICATIONS: None at the time of this dictation. EBL: 350 mL. SPECIMENS REMOVED: Stomach. BRIEF HISTORY: A 58-year-old gentleman with a biopsy-proven cancer. We had marked it. It was in the proximal stomach. Given its location, I felt that he needed a total gastrectomy. I had an extensive discussion with the patient preoperatively, discussing the risks, benefits, and alternatives of procedure, risks including, but not limited to bleeding, infection, risk of anesthesia, risk of anastomotic breakdown, risk of injury to the esophagus, risk of failure of the esophagojejunal anastomosis, risk of injury to other organs discussed. We even offered him a second opinion at [facility] or [place]. Given the complexity case, I elected to have a partner in the procedure, and had asked Dr. Martini to assist, and I discussed this with the patient. All questions were answered. The patient voiced understanding and wished to proceed with the procedure. DESCRIPTION OF PROCEDURE: After informed consent was obtained, the patient was brought to the operative theatre, transferred to the operating table, and placed in the supine position. General endotracheal anesthesia was then performed without complication. A formal time- out was then performed, confirming the patient, date, and procedure. All were in agreement. At that time, our first attention was given to the right neck. We prepped and draped in a sterile fashion. After the time-out, we turned our attention to the right neck. We used the ultrasound to identify the right internal jugular vein. Under local anesthetic, I was able to cannulate it, and pass a wire. Using the Seldinger technique, I dilated up the path, and placed a central line in the jugular vein. All ports aspirated and flushed easily. We secured it to the skin, placed a sterile dressing, connected to a CVP monitor, and it showed a CVP waveform. The patient had no pressure changes, but a chest x-ray currently is pending. At that point, we prepped and draped the abdomen in a sterile fashion. We turned our attention to the abdomen. We placed a 5 mm trocar supraumbilically to do the diagnostic laparoscopy. We wanted to do this to evaluate for any kind of carcinomatosis or intraabdominal process that was unnoticed on the PET scan. We inserted the scope using Optiview technique. I viewed the abdomen in its entirety. I did not see any pathology. I felt it would be safe to proceed with the procedure. We removed the 5 mm trocar, and made a standard upper midline incision down to just past his umbilicus to enter into his abdomen. We mobilized the left lobe of the liver to get better visualization of the esophagus and the stomach. At this time, we started our process by mobilizing the omentum. We were going to incorporate the omentum in the specimen. We started taking it down off the transverse colon to get into the lesser sac. We did this proximally and distally. Given his amount of omentum, we essentially had to mobilize the splenic flexure fully to get it off the splenic flexure. We brought it up all the way to the splenic flexure, mobilizing along the white line of Toldt, and then brought it down. We were able to free up the omentum. There was a little bit of ischemic injury to the spleen, but no active bleeding secondary to mobilization. Once we had fully mobilized the omentum, we took down the greater curvature, again all the way up to the diaphragm. We had to take down the short gastrics. Some of the splenic blood supply was from this, and again this contributed a little bit to the ischemia noted in the spleen, but the majority of the spleen was perfused. Once we had taken down the greater curvature, we turned to the lesser curvature, and started mobilizing it all the way from the pylorus, up to the right crura. We did not see any replaced hepatic anatomy. We made sure we came across the major vessels with the LigaSure. Once we had come proximally and distally, we made sure we were able to get posteriorly around the stomach, and did this meticulously off the pancreas. We then turned our attention up to the esophageal area. We mobilized the esophagus fully to be able to get a finger around it fully. We then came back down and got around the pylorus and the duodenum. At this point, we had freely mobilized the stomach to the point we could start doing transections. We transected at the duodenum with a SHERLY stapler, then oversewed the duodenal stump. We then started mobilizing all the way up again. We were free up from everything. We placed stay sutures on the esophagus, and placed a pursestring device, and then transected the esophagus just proximal to the GE junction. At this point, we were able to remove the stomach in its entirety, with the omentum intact to the stomach. We then elected to use a Candace-en-Y reanastomosis. We selected an area of jejunum that was 20 cm from the ligament of Treitz, transected it there, brought a long limb up retrocolic through a mesenteric defect that we created all the way up to the esophagus. We used a 40 cm length for the long limb. We then did a handsewn end-to-side anastomosis for the duodenal side to the Candace limb. It was patent. We then brought the long limb up to the esophagus, and did our anastomosis with an EEA stapler. We placed a 25 mm stapler anvil in the esophagus, tied the pursestring down, then brought the stapler up through the redundant end of the jejunum, and performed our anastomosis. There appeared to be two intact rings, although somewhat tenuous on the esophageal side at one portion. We then transected the redundant jejunum up at the anastomosis. We then irrigated out the abdomen. Given how tenuous the esophageal anastomosis was, we elected to do a Witzel jejunostomy. We selected a piece of jejunum distal to our Candace limb, brought it up, and performed a jejunostomy, brought a red rubber catheter through the skin and the fascia, into the jejunum, Witzeled it in a standard fashion, and juxtaposed it up against the abdominal wall. It was able to flush easily. We placed the cap. We then secured it in place with nylon sutures to the skin and silk to the abdominal wall. We then irrigated out the abdomen, closed it with a running loop PDS starting from either side. We irrigated the skin, and then closed the skin with alejandra. The patient tolerated the procedure well. We will transfer him to the ICU to observe him closely. cc: MD BRISEIDA Holder
--- NOTE | 2019-05-03 12:17 | Diag Imaging Result Doc PS360 ---
EXAM: CHEST-PORTABLE INDICATION: PACU 5 TECHNIQUE: One view COMPARISON: 01/22/2019 FINDINGS: There is a newly placed right IJ line. The tip projects over the lower SVC in the expected position. There is also an NG tube in place. The tip projects below the diaphragm and is assumed to be in the lumen of the stomach in the expected position. Inspiration is suboptimal. There is likely mild atelectasis at the lung bases. There is no discrete pleural fluid collection or pneumothorax. Cardiac silhouette is unremarkable. IMPRESSION: Placement of NG tube and right central line as described. No evidence of pneumothorax. Electronically signed by Vladislav Noe 05/03/2019 12:14 PM
[2019-05-03] MEDS: LR 1,000 ML IV SCH (14:02)
[2019-05-03] MEDS: MEFOXIN 2 GM/NS 2 GM/50 ML IVPB IV SCH ×2 (14:14→19:10)
[2019-05-03] MEDS: ZOFRAN IV SCH ×2 (14:14→19:53)
[2019-05-03 16:42] LABS: AGAP 11; BUN 16 mg/dL (8-22); CALCIUM 8.6 mg/dL (8.8-10.2); CHLORIDE 98 mmol/L (98-107); CHOLESTEROL 151 mg/dL (0-200); COSMO 270; CREATININE 1.1 mg/dL (0.7-1.2); ESTIMATED GFR > 60; GLUCOSE 175 mg/dL (70-104); GOT 117 U/L (10-34); MAGNESIUM 1.4 mg/dL (1.5-2.7); PHOSPHORUS 4.7 mg/dL (2.7-4.5); PREALBUMIN 29.4 mg/dL (20-40); SODIUM 132 mmol/L (136-145); TCO2 23 mmol/L (25-35); TRIGLYCERIDES 200 mg/dL (39-160)
[2019-05-03] MEDS: OFIRMEV 1000 MG/ISOTONIC SOLN 1,000 MG/100 ML BOTTLE IV SCH ×2 (17:00→21:13)
--- NOTE | 2019-05-03 17:28 | CONSULTATION ---
DATE OF CONSULTATION: 05/03/2019 PRIMARY CARE PHYSICIAN: Dr. Michael Archuleta. ATTENDING: General Surgery. CHIEF COMPLAINT: We are being consulted for medical management of this patient with known hypertension, hyperlipidemia, diabetes type 2, coronary artery disease, after having a open total gastrectomy with Candace-en-Y esophageal jejunal anastomosis, open jejunostomy, diagnostic laparoscopy for staging purposes. HISTORY OF PRESENTING ILLNESS: This is a 58-year-old male who presents to [facility] and admitted to General Surgery had a preop diagnosis of proximal gastric cancer. Had the following procedures performed. 1. An ultrasound-guided right internal jugular vein central line placement. 2. Diagnostic laparoscopy for staging purposes. 3. An open mobilization of splenic flexure. 4. An open total gastrectomy with Candace-en-Y esophageal jejunal anastomosis . 5. An open jejunostomy tolerated procedure well and has been placed in intensive care unit. After speaking with attending he does not want any pills either p.o. or crushed to be given via the jejunostomy tube at this time. Patient tolerated the procedure well is currently on a Dilaudid CUPROUS CHLORIDE OPERATOR pump with pain under control currently. We will follow this patient throughout the remainder of his hospitalization. PAST MEDICAL HISTORY: Of stomach cancer, hypertension, hyperlipidemia, diabetes type 2, coronary artery disease, chronic anticoagulation, sleep apnea, cataracts and GI bleed. PAST SURGICAL HISTORY: Of cataract removal x2, femoral/femoral bypass, coronary stents, left lower leg skin graft, a total gastrectomy, a jejunostomy. FAMILY HISTORY: Mother is alive and healthy. Father is with a history of [facility] with stents, hypertension, cataracts and bladder cancer. SOCIAL HISTORY: He currently lives with family, is a former smoker who smoked 3 packs a day for 33 years starting at the age of 15 until he was 48. Reports drinking about 3 mixed drinks about 3 times per week, denied any illicit drug use. ALLERGIES: Heparin. HOME MEDICATIONS: Will all be held at this time per General Surgery's request of no pills either p.o. or crushed in the tube but he was taking aspirin 81 mg p.o. q.a.m., vitamin B12 1000 mcg sublingually q.a.m., Farxiga 10 mg p.o. q.a.m., fenofibrate 54 mg p.o. q.a.m., lisinopril 20 mg p.o. q.a.m., Glucophage 500 mg 2 tablets p.o. b.i.d. before meals, fish oil 1000 mg p.o. b.i.d., simvastatin 40 mg p.o. at bedtime and Coumadin 3 mg p.o. b.i.d. LABORATORY DATA: Showed a white blood cell count of 9.79, hemoglobin 14, hematocrit 42.2, platelets 360,000. Sodium 135, potassium 4.6, chloride 96, CO2 24, BUN of 21, creatinine 1.1, glucose 164, calcium 10.5. Urinalysis was negative. Chest x-ray showed placement of NG tube and right central line but no evidence of pneumothorax. REVIEW OF SYSTEMS: He denied any fever, chills, blurred vision, dizziness, chest pain, coughing, shortness of breath. He is positive for abdominal pain status post his abdominal procedures. Denied any nausea, vomiting or burning or hurting with urination. PHYSICAL EXAMINATION: On arrival he had a temperature of 97.4 degrees, pulse 63, respirations 16, blood pressure 127/79, saturating 100% on room air.General: This is a 58-year-old chronically ill appearing male lying in the bed and answers questions appropriately. HEENT: Normocephalic, atraumatic. Normal ENT inspection. Oropharynx and nares are clear. Pupils are equal, round, reactive to light, accommodation. Extraocular movements are intact. Neck: Normal inspection, normal range of motion. Lungs: Diminished breath sounds to his bilateral lower lobes and clear to upper lobes. Equal lung expansion and chest wall movement noted. Heart: Regular rate and rhythm. No murmurs, rubs or gallops. Abdomen: Soft. There is some mild distention, tenderness to touch, he has a midline abdominal incision with a bandage in place that is clean and dry. He has a jejunostomy tube noted to the left lower quadrant with dressing in place that is clean and dry. Bowel sounds are hypoactive x4 quadrants. Musculoskeletal: Moves all extremities well. Genitourinary: He has an indwelling Dale catheter in place at this time draining clear yellow urine. Neurological: The cranial nerves 2-12 appear grossly intact. ASSESSMENT: 1. Status post open total gastrectomy with Candace-en-Y esophageal jejunal anastomosis and an open jejunostomy with diagnostic laparoscopy for staging purposes. 2. Diabetes type 2. 3. Hypertension. 4. Hyperlipidemia. PLAN: He was admitted after his procedure this morning to the intensive care unit. All orders per general surgeon. He is getting cefoxitin 2 g IV q.6 hours x4 bags. He is on Arixtra 2.5 mg subcu nightly for DVT prophylaxis, Dilaudid CUPROUS CHLORIDE OPERATOR pump, lactated Ringer's at KVO. Will continue to be n.p.o. at this time. Recheck labs in the a.m. He is on pattern blood sugars with sliding scale insulin. Has SCD also for DVT prophylaxis, Ofirmev 1000 mg IV q.6 hours, again nothing by mouth, no pills crushed and placed in jejunostomy tube either at this time per general surgery's request. We thank you for the opportunity to follow this patient throughout the remainder of his hospitalization. Further orders after seen by talent acquisition consultant. Dictated by ANDI Gutierrez for Bibi Florentino MD cc: ANDI Gutierrez MD Matthew L. Figh, MD
[2019-05-03] MEDS ORDERED: D10W 1,000 ML IV SCH (18:45)
[2019-05-03] MEDS ORDERED: TPN ELECTROLYTES 20 ML, MAGNESIUM SULFATE 5 MEQ, POTASSIUM CHLORIDE 25 MEQ, M.V.I.-12 1... IV SCH ×7 (20:00)
[2019-05-03] MEDS: ARIXTRA SUBQ SCH (21:12)
[2019-05-03] MEDS: LIPOSYN 20% 250 ML IV SCH (21:13)
[2019-05-04] MEDS: ZOFRAN IV SCH ×4 (00:33→18:31)
[2019-05-04] MEDS: MEFOXIN 2 GM/NS 2 GM/50 ML IVPB IV SCH ×2 (00:33→07:28)
[2019-05-04] MEDS: OFIRMEV 1000 MG/ISOTONIC SOLN 1,000 MG/100 ML BOTTLE IV SCH ×2 (04:39→10:02)
[2019-05-04 06:54] LABS: AGAP 12; BUN 15 mg/dL (8-22); CALCIUM 8.4 mg/dL (8.8-10.2); CHLORIDE 100 mmol/L (98-107); COSMO 276; CREATININE 0.9 mg/dL (0.7-1.2); ESTIMATED GFR > 60; GLUCOSE 155 mg/dL (70-104); MAGNESIUM 1.7 mg/dL (1.5-2.7); PHOSPHORUS 3.8 mg/dL (2.7-4.5); POTASSIUM 4.4 mmol/L (3.5-5.1); SODIUM 136 mmol/L (136-145); TCO2 24 mmol/L (25-35)
--- NOTE | 2019-05-04 07:06 | GENERAL SURGERY PROGRESS NOTE ---
DATE: 05/04/2019 SUBJECTIVE: Patient says he is doing okay. He does have some abdominal pain. Nursing staff reports no major issues. OBJECTIVE: Vital Signs: The patient is currently afebrile. Vital signs are stable. General Examination: No acute distress. Cardiovascular: Regular rate and rhythm. Lungs: No increased labored breathing. Abdomen: Soft, appropriately tender. NG tube in place with very minimal output. Jejunostomy tube currently with a cap. Laboratory: Reviewed from yesterday. ASSESSMENT AND PLAN: A 58-year-old gentleman, currently postoperative day #1 from total gastrectomy with Candace-en-Y reconstruction. Postoperative state. At this time, continue current treatment. We will keep him on total parenteral nutrition. The ultimate plan is to keep him on antibiotics through the day and then likely stop them. We will keep him on a VARIOUS EXCEPTIONALITIES TEACHER. We have got him on total parenteral nutrition until we do an upper gastrointestinal study on Friday. We will continue to flush the jejunostomy tube and might have to use it if there is any kind of an anastomotic issue. We did put him on Arixtra, given his allergy to heparin. He was previously on Coumadin and we will to consider if we need to increase his dose. He does have sequential compression devices on. We will keep a close eye on him. I think it is probably safe for him to get out of the intensive care unit but I only really want him to go to the PVC unit. As there are no beds available in the PVC, we will keep him in the intensive care unit. cc: Jef Munoz MD MTDD
[2019-05-04] MEDS: HUMALOG SUBQ SCH ×3 (09:08→19:49)
[2019-05-04 09:46] LABS: BASO# 0.02 X1000 (0.0-0.2); BASO% 0.2 % (0.0-0.8); EOS# 0.07 X1000 (0.0-0.7); EOS% 0.6 % (0.0-10.0); HEMATOCRIT 37.2 % (42.0-52.0); IMM GRAN# 0.05 X1000 (0.0-0.04); IMM GRAN% 0.4 % (0.0-0.5); LYMPH# 1.67 X1000 (1.2-3.4); LYMPH% 14.2 % (20.5-51.1); MCH 30.5 PG (27-31); MCHC 32.3 g/dL (33-37); MCV 94.7 FL (81-99); MONO# 0.96 X1000 (0.11-0.59); MONO% 8.2 % (1.7-9.3); MPV 9.1 FL (7.4-10.4); NEUT# 8.99 X1000 (1.4-6.5); NEUT% 76.4 % (42.2-75.2); PLT 317 X1000 (130-400); RBC 3.93 XMIL (4.7-6.1); RDW 14.4 % (11.5-14.5); WBC 11.76 X1000 (4.8-10.8)
[2019-05-04 09:57] LABS: INR 1.02; PROTIME 13.5 Seconds (11.0-16.0)
--- NOTE | 2019-05-04 10:05 | PROGRESS NOTE ---
DATE: 05/04/2019 INTERVAL HISTORY: No acute events overnight. SUBJECTIVE: Mr. Vergara denies any new specific complaints. He denies any chest pain. He denies feeling short of breath. He denies unusual cough. We discussed about postoperative course. We discussed about postoperative complications, including pneumonia, urinary tract infection. We discussed about following up his blood pressure and heart rate, as well as heart rhythm. I answered all of his questions. He denies any burning in the micturition. He complains of some soreness in the abdomen. OBJECTIVE: Vital Signs: Temperature 98.5 degrees, pulse 70, respiratory rate 20, blood pressure 132/84, he is saturating 96% on 4 L nasal cannula, and he was saturating 93% on 2 L when I turn it down. General: Mr. Vergara is not in any acute distress. HEENT: Oral cavity is moist. Lungs: He has diminished respiratory effort, but otherwise air entry bilaterally equal. No wheeze, rhonchi, or crackles. Cardiovascular: S1, S2 normal. Regular. No murmur, rub, or gallop. Abdomen: Soft. He has midline laparotomy scars with alejandra on. He has a left quadrant jejunostomy tube. There is tenderness around the laparotomy wound site. Hypoactive bowel sounds. Extremities: No lower extremity edema. He is alert and oriented x3. He has nasogastric tube, right-sided neck central line, jejunostomy tube, and a urine catheter. LABORATORY DATA: No CBC today. His BMP suggests blood glucose of 147. MICROBIOLOGY: No positive microbiological data. IMAGING: No new imaging. ASSESSMENT AND PLAN: 1. History of moderately-differentiated gastric adenocarcinoma, status post total gastrectomy with Candace-en-Y esophageal jejunal anastomosis and open jejunostomy. Today is postoperative day 1. The patient has been on total parenteral nutrition. Diet, Urine catheter management as per general surgical team's recommendations. He has been on fondaparinux for deep venous thrombosis prophylaxis, intravenous acetaminophen and hydromorphone pump for pain. I will monitor him for postoperative complications. 2. History of coronary artery disease, requiring stent in 2019. He could not tell me the exact timing of his stent, considering it is close to almost a year. I will monitor him for any perioperative cardiovascular event. I will get a baseline electrocardiogram. I will resume his aspirin when deemed appropriate from general surgical team's point of view. 3. History of peripheral arterial disease with dqvrweg-lb-ybllbgs bypass, on chronic warfarin. I will follow up with coagulations, and will resume his warfarin in the future once deemed appropriate by general surgical team's recommendation. 4. History of essential hypertension, hyperlipidemia, and noninsulin-dependent type 2 diabetes mellitus. I will keep him on as needed sliding scale insulin, and will add intravenous antihypertensive medication as tolerated in the future. 5. Disposition. As per general surgical team's recommendation, it looks like currently there are no PVC beds, so will continue to monitor him in intensive care unit. Thank you for allowing us to take part in this patient's care. Will continue to follow along. cc: Jung Kaba MD MTDD
[2019-05-04 10:12] LABS: ALB/GLOB RATIO 1.6; ALBUMIN 3.5 g/dL (3.5-5.0); DIRECT BILIRUBIN 0.1 mg/dL (0.00-0.20); TOTAL BILIRUBIN 0.25 mg/dL (0.20-1.00); TOTAL PROTEIN 5.7 g/dL (6.3-8.3)
--- NOTE | 2019-05-04 11:39 | EKG Report ---
Test Performed on : 05/04/2019 10:27:05 AM Test Reason : Baseline EKG. H/o CAD. Blood Pressure : / mmHG Vent. Rate : 066 BPM Atrial Rate : 066 BPM P-R Int : 184 ms QRS Dur : 090 ms QT Int : 364 ms P-R-T Axes : 054 043 018 degrees QTc Int : 381 ms Normal sinus rhythm. Normal ECG When compared with ECG of 13-JAN-2019 22:04, (Unconfirmed) QT has shortened Inferior T wave abnormalities are no longer present. Confirmed by Ankur Conde MD ([id number]) on 05/04/2019 9:11:44 PM
[2019-05-04] MEDS: DILAUDID PCA VIAL IV PRN (12:10)
[2019-05-04] MEDS: LR 1,000 ML IV SCH (12:10)
[2019-05-04] MEDS ORDERED: TPN ELECTROLYTES 20 ML, MAGNESIUM SULFATE 5 MEQ, POTASSIUM CHLORIDE 35 MEQ, M.V.I.-12 1... IV SCH ×8 (20:00)
[2019-05-04] MEDS: LIPOSYN 20% 250 ML IV SCH (20:33)
[2019-05-04] MEDS: ARIXTRA SUBQ SCH (20:33)
[2019-05-05] MEDS: HUMALOG SUBQ SCH ×4 (01:29→20:37)
[2019-05-05] MEDS: ZOFRAN IV SCH ×4 (01:29→20:12)
[2019-05-05 05:56] LABS: BASO# 0.02 X1000 (0.0-0.2); BASO% 0.2 % (0.0-0.8); EOS% 0.8 % (0.0-10.0); HEMATOCRIT 34.7 % (42.0-52.0); HEMOGLOBIN 11.7 g/dL (14.0-18.0); IMM GRAN# 0.05 X1000 (0.0-0.04); IMM GRAN% 0.4 % (0.0-0.5); LYMPH# 1.01 X1000 (1.2-3.4); LYMPH% 8.3 % (20.5-51.1); MCH 32.7 PG (27-31); MCHC 33.7 g/dL (33-37); MCV 96.9 FL (81-99); MONO# 1.04 X1000 (0.11-0.59); MONO% 8.6 % (1.7-9.3); MPV 9.4 FL (7.4-10.4); NEUT# 9.93 X1000 (1.4-6.5); NEUT% 81.7 % (42.2-75.2); PLT 283 X1000 (130-400); RBC 3.58 XMIL (4.7-6.1); RDW 14.3 % (11.5-14.5); WBC 12.15 X1000 (4.8-10.8)
[2019-05-05 06:31] LABS: AGAP 11; BUN 14 mg/dL (8-22); CALCIUM 8.7 mg/dL (8.8-10.2); CHLORIDE 98 mmol/L (98-107); COSMO 276; CREATININE 0.9 mg/dL (0.7-1.2); ESTIMATED GFR > 60; GLUCOSE 166 mg/dL (70-104); MAGNESIUM 1.7 mg/dL (1.5-2.7); PHOSPHORUS 2.3 mg/dL (2.7-4.5); POTASSIUM 4.2 mmol/L (3.5-5.1); SODIUM 136 mmol/L (136-145); TCO2 27 mmol/L (25-35)
--- NOTE | 2019-05-05 08:15 | GENERAL SURGERY PROGRESS NOTE ---
DATE: 05/05/2019 SUBJECTIVE: Patient is doing okay. He does have some abdominal pain, but it seems like it is in his musculature. He has been up in a chair. He has been doing well. OBJECTIVE: Vital Signs: Patient is currently afebrile. His vital signs have been stable. General: No acute distress. Cardiovascular: Regular rate and rhythm. Lungs: Grossly clear. Abdomen: Soft. Distended. Hypoactive bowel sounds. Incision seems to be healing well. LABORATORY: Pending for this morning. ASSESSMENT AND PLAN: A 58-year-old gentleman postoperative day #2 from total gastrectomy. Postoperative state at this time. Continue current treatment. We will remove his Dale catheter. We will continue to monitor him. Plan again is to study him on Friday, and keep him on TPN until then. cc: MD Jung Holder MD
[2019-05-05] MEDS: ARIXTRA SUBQ SCH (08:55)
--- NOTE | 2019-05-05 08:56 | PROGRESS NOTE ---
DATE: 05/05/2019 INTERVAL HISTORY: No acute events overnight. Mr. Vergara is sitting in the chair. He complains of occasional cough, which causes excruciating pain at the site of abdominal wound. He denies chest pain or shortness of breath. We discussed about starting him on rectal aspirin. We also discussed about diet management as per surgical team. We also discussed about the timing of his percutaneous intervention, but he was not entirely sure when exactly it was performed. REVIEW OF SYSTEMS: Positive for abdominal pain, requiring hydromorphone CULVERT INSTALLER pump. Negative for chest pain. Negative for any flatus. OBJECTIVE: Vital Signs: Temperature 98.2 degrees, pulse 79, respiratory rate 21, blood pressure 131/76, he is saturating 95% on 4 L nasal cannula. General: He is not in any acute distress. HEENT: Oral cavity is moist. Lungs: Air entry bilaterally equal. No wheeze or rhonchi. He has mild crackles, infrascapular region. Heart: S1, S2 normal. No murmur or gallop. Abdomen: Soft. He has a midline laparotomy scar with alejandra on. He has left quadrant jejunostomy tube. There is generalized abdominal tenderness, especially around the laparotomy wound. I could not appreciate bowel sounds. Extremities: No lower extremity edema. His urine catheter was removed. He has nasogastric tube, right-sided neck central line, jejunostomy tube. Neurologic: He was alert and oriented x3. LABORATORY DATA: WBC 12,000, hemoglobin 11.7, platelets 283,000. BUN 14, creatinine 0.9, blood glucose 164. His magnesium is 1.7. Yesterday, coagulation had INR of 1.02 and PTT of 34. MICROBIOLOGY/IMAGING: No microbiological or imaging data. ASSESSMENT AND PLAN: 1. Moderately-differentiated gastric adenocarcinoma, status post total gastrectomy with Candace-en-Y esophagojejunal anastomosis and open jejunostomy. Today is postoperative day 2. Continue total parenteral nutrition, intravenous hydromorphone for pain management. His Dale catheter has been removed. Surgical Team planning small bowel series on 05/07/2019. I will monitor him for postoperative complications, including pneumonia. 2. History of coronary artery disease, requiring stent in 2019. Records from outpatient polymer tester have been requested. His electrocardiogram had normal sinus rhythm. I will start him on rectal aspirin. 3. History of peripheral artery disease with doczoqo-wb-zhjmgqm bypass, on chronic warfarin therapy. His INR has been subtherapeutic perioperatively. After discussion with General Surgical team, I will consider increasing the dose of fondaparinux. In the future, he would need to resume his warfarin. His dorsalis pedis, posterior tibial, and popliteal pulses in the left lower extremity are difficult to palpate, though his feet are warm to touch. Capillary refill time less than 2 seconds. Skin appears pink. 4. History of essential hypertension, hyperlipidemia, noninsulin-dependent type 2 diabetes mellitus. Continue sliding scale insulin. He is currently normotensive. 5. Disposition. Pending transfer to [facility] as a bed becomes available. Plan of care discussed with Mr. Vergara. All of his questions have been satisfactorily answered. cc: Jung Kaba MD
[2019-05-05] MEDS: LR 1,000 ML IV SCH (12:05)
[2019-05-05] MEDS: DILAUDID PCA VIAL IV PRN (14:26)
[2019-05-05] MEDS ORDERED: OFIRMEV 1000 MG/ISOTONIC SOLN 1,000 MG/100 ML BOTTLE IV PRN (17:21)
[2019-05-05] MEDS: LIPOSYN 20% 250 ML IV SCH (17:39)
[2019-05-05] MEDS ORDERED: POTASSIUM CHLORIDE IV SCH ×8 (20:00)
[2019-05-05] MEDS ORDERED: TPN ELECTROLYTES IV SCH ×8 (20:00)
[2019-05-05] MEDS ORDERED: [UNRECOGNIZED DRUG - OTHER] IV SCH ×8 (20:00)
[2019-05-05] MEDS ORDERED: MAGNESIUM SULFATE IV SCH ×8 (20:00)
[2019-05-05] MEDS: ASPIRIN PR SCH (20:12)
[2019-05-06] MEDS: ZOFRAN IV SCH ×4 (01:15→20:10)
[2019-05-06] MEDS: HUMALOG SUBQ SCH ×4 (01:18→20:35)
[2019-05-06 05:49] LABS: BASO# 0.05 X1000 (0.0-0.2); BASO% 0.4 % (0.0-0.8); EOS# 0.41 X1000 (0.0-0.7); EOS% 3.6 % (0.0-10.0); HEMATOCRIT 35.4 % (42.0-52.0); HEMOGLOBIN 11.6 g/dL (14.0-18.0); IMM GRAN# 0.11 X1000 (0.0-0.04); LYMPH# 1.29 X1000 (1.2-3.4); LYMPH% 11.2 % (20.5-51.1); MCH 31.4 PG (27-31); MCHC 32.8 g/dL (33-37); MCV 95.7 FL (81-99); MONO# 1.14 X1000 (0.11-0.59); MONO% 9.9 % (1.7-9.3); MPV 9.6 FL (7.4-10.4); NEUT# 8.52 X1000 (1.4-6.5); NEUT% 73.9 % (42.2-75.2); PLT 304 X1000 (130-400); RDW 14.2 % (11.5-14.5); WBC 11.52 X1000 (4.8-10.8)
[2019-05-06 06:39] LABS: AGAP 12; BUN 14 mg/dL (8-22); CALCIUM 9.3 mg/dL (8.8-10.2); CHLORIDE 99 mmol/L (98-107); COSMO 280; CREATININE 0.8 mg/dL (0.7-1.2); ESTIMATED GFR > 60; GLUCOSE 165 mg/dL (70-104); MAGNESIUM 1.9 mg/dL (1.5-2.7); PHOSPHORUS 3.1 mg/dL (2.7-4.5); POTASSIUM 4.3 mmol/L (3.5-5.1); SODIUM 138 mmol/L (136-145); TCO2 27 mmol/L (25-35)
--- NOTE | 2019-05-06 07:12 | GENERAL SURGERY PROGRESS NOTE ---
DATE: 05/06/2019 SUBJECTIVE: Patient doing well. He is hurting less. Nursing staff reports no major issues. OBJECTIVE: Vital Signs: Patient is currently afebrile. His vital signs are stable. General: No acute distress. Cardiovascular: Regular rate and rhythm. Lungs: Grossly clear. Abdomen: Soft, somewhat distended. Incision seems to be healing. Hypoactive bowel sounds. Lines and tubes in place. LABORATORY: White blood cell count 11 which is stable, hematocrit stable 35, platelet count 304,000. ASSESSMENT AND PLAN: A 58-year-old gentleman, currently postoperative day #3 from a total gastrectomy. #1 postop state. At this time, we will continue as is. Will likely plan on doing upper GI series tomorrow to evaluate the anastomosis. Would like to see more definitive return of bowel function. We will try to ambulate the patient. cc: MD Jung Holder MD
[2019-05-06] MEDS: ARIXTRA SUBQ SCH (08:20)
--- NOTE | 2019-05-06 08:35 | Diag Imaging Result Doc PS360 ---
EXAM: CHEST-PORTABLE 05/06/2019 HISTORY: rule out pneumonia TECHNIQUE: AP portable at 0809 COMMENT: The inspiration is somewhat suboptimal. There is slightly worsened atelectasis over the left base compared to 05/03/2019. The NG tube and right internal jugular line remain. There may be some pleural fluid bilaterally. IMPRESSION: Left lower lobe atelectasis versus pneumonia. Questionable bilateral pleural effusions. Electronically signed by Isidoro Blevins 05/06/2019 8:33 AM
[2019-05-06] MEDS ORDERED: LASIX PO ONE (08:55)
[2019-05-06] MEDS ORDERED: LASIX IV ONE (09:41)
--- NOTE | 2019-05-06 10:18 | PROGRESS NOTE ---
DATE: 05/06/2019 INTERVAL HISTORY: Mr. Vergara has been coughing up some sputum which is of greenish color and sputum culture has been collected. He denies any chest pain. He denies feeling short of breath. He states he has only coughed up once this morning. He has not had any fever. REVIEW OF SYSTEMS: Positive for cough. Negative for shortness of breath. Negative for chest pain. He had 1 episode of streaks of blood in the sputum, but he thinks it was because of dry sinuses. VITALS: Temperature of 98.3 degrees, pulse 74, respiratory 24, blood pressure 128/80, saturating 95% on 2 L nasal cannula. PHYSICAL EXAMINATION: He is not in any acute distress. Oral cavity is moist. He has decreased air entry bilateral lung carroll with inspiratory crackles. He also has egophony on left infrascapular region. S1, S2 normal. No murmur, rub, or gallop. Abdomen is soft. There is a jejunostomy tube and laparotomy scar with alejandra in. He has right-sided central line. Mild generalized abdominal tenderness and I could not appreciate any bowel sounds. No lower extremity edema. He has NG tube, right-sided neck central line. Jejunostomy tube. He is alert and oriented x3. LABS: WBC of 11,000, hemoglobin 11.6, platelet 304,000. BUN is 14, creatinine 0.8. MICROBIOLOGY: Sputum culture is in lab. IMAGING: Chest x-ray this morning suggests left lower lobe atelectasis, questionable bilateral pleural effusion. ASSESSMENT AND PLAN: 1. Moderately-differentiated gastric adenocarcinoma, status post total gastrectomy with Candace-en-Y esophagojejunal anastomosis and open jejunostomy tube placement. Today is postoperative day 3. Continue TPN, intravenous hydromorphone for pain management and follow up small bowel series on May 06. 2. Acute hypoxic respiratory failure, occasional cough with expectoration, egophony and left lower lung infiltrate. No fever or worsening leukocytosis. Closely monitor him for signs of pneumonia. Follow-up repeat chest x-ray tomorrow as well as sputum culture. I will give him 1 time dose of Lasix for pulmonary vascular congestion. 3. History of peripheral artery disease with femoral-femoral bypass on chronic warfarin therapy. Continue therapeutic dose of fondaparinux with close monitoring of CBC. He does have good perfusion in bilateral feet and capillary refill time less than 2 seconds. 4. History of essential hypertension, hyperlipidemia, coronary artery disease requiring stent in 2019. Continue rectal aspirin. I am awaiting records from outside hospital. DISPOSITION: Pending transfer to [facility] once bed becomes available. Plan of care discussed with Jai. His questions have been satisfactorily answered. cc: Jung Kaba MD MTDD
[2019-05-06] MEDS: LR 1,000 ML IV SCH (11:23)
[2019-05-06] MEDS: DILAUDID PCA VIAL IV PRN (11:23)
[2019-05-06] MEDS: LIPOSYN 20% 250 ML IV SCH (17:39)
[2019-05-06] MEDS: TPN ELECTROLYTES IV SCH ×8 (20:10)
[2019-05-06] MEDS: MAGNESIUM SULFATE IV SCH ×8 (20:10)
[2019-05-06] MEDS: [UNRECOGNIZED DRUG - OTHER] IV SCH ×8 (20:10)
[2019-05-06] MEDS: POTASSIUM CHLORIDE IV SCH ×8 (20:10)
[2019-05-06] MEDS: ASPIRIN PR SCH (22:11)
[2019-05-07] MEDS: HUMALOG SUBQ SCH ×4 (01:39→21:02)
[2019-05-07] MEDS: ZOFRAN IV SCH ×4 (01:39→21:06)
--- NOTE | 2019-05-07 06:59 | GENERAL SURGERY PROGRESS NOTE ---
DATE: 05/07/2019 SUBJECTIVE: The patient seems to be doing okay. His NG tube did accidentally come out, but otherwise he is doing fine. He was transferred to the [facility] and hemodynamically stable. His pain is controlled. He is not having any major difficulty. He has not passed gas, but he has not had any nausea. OBJECTIVE: Vital Signs: Patient is currently afebrile. His vital signs are stable. General: No acute distress. Cardiovascular: Regular rate and rhythm. Lungs: Grossly clear. Abdomen: Still somewhat distended, but otherwise some faint bowel sounds auscultated. Incision is healing. ASSESSMENT AND PLAN: A 58-year-old gentleman, currently postoperative day number 4 total gastrectomy. Postoperative state: At this time continue current treatment. His nasogastric tube is out and we will leave it out. We will get an upper gastrointestinal today. I have discussed with the radiologist that we will evaluate his anastomosis, may consider starting jejunal feeds today. cc: MD Jung Holder MD
[2019-05-07 07:05] LABS: BASO# 0.06 X1000 (0.0-0.2); BASO% 0.5 % (0.0-0.8); EOS# 0.37 X1000 (0.0-0.7); HEMOGLOBIN 11.2 g/dL (14.0-18.0); IMM GRAN# 0.16 X1000 (0.0-0.04); IMM GRAN% 1.3 % (0.0-0.5); LYMPH# 1.15 X1000 (1.2-3.4); LYMPH% 9.4 % (20.5-51.1); MCH 31.2 PG (27-31); MCHC 32.9 g/dL (33-37); MCV 94.7 FL (81-99); MONO% 11.5 % (1.7-9.3); MPV 9.6 FL (7.4-10.4); NEUT# 9.05 X1000 (1.4-6.5); NEUT% 74.3 % (42.2-75.2); PLT 358 X1000 (130-400); RBC 3.59 XMIL (4.7-6.1); RDW 13.7 % (11.5-14.5); WBC 12.19 X1000 (4.8-10.8)
[2019-05-07 07:42] LABS: AGAP 14; BUN 22 mg/dL (8-22); CALCIUM 8.9 mg/dL (8.8-10.2); CHLORIDE 97 mmol/L (98-107); COSMO 283; CREATININE 0.9 mg/dL (0.7-1.2); ESTIMATED GFR > 60; GLUCOSE 173 mg/dL (70-104); MAGNESIUM 1.9 mg/dL (1.5-2.7); PHOSPHORUS 3.6 mg/dL (2.7-4.5); SODIUM 138 mmol/L (136-145); TCO2 27 mmol/L (25-35)
--- NOTE | 2019-05-07 07:46 | Diag Imaging Result Doc PS360 ---
CHEST-PORTABLE - 05/07/2019 INDICATION: Follow up left lower lobe infiltrate COMPARISON: 05/06/2019 FINDINGS: The nasogastric tube has been removed. Stable right internal jugular central line in good position. Stable critically low lung volumes. Stable nonspecific infiltrate or atelectasis in the left lower lobe. IMPRESSION: Very low lung volumes. No change from prior. Electronically signed by Jose Peña 05/07/2019 7:43 AM
--- NOTE | 2019-05-07 08:08 | EKG Report ---
Test Performed on : 05/07/2019 07:59:18 AM Test Reason : Evaluate for QTc Blood Pressure : / mmHG Vent. Rate : 074 BPM Atrial Rate : 074 BPM P-R Int : 188 ms QRS Dur : 086 ms QT Int : 342 ms P-R-T Axes : 041 038 015 degrees QTc Int : 379 ms Normal sinus rhythm. Normal ECG When compared with ECG of 04-MAY-2019 10:27, No significant change was found Confirmed by Ankur Conde MD ([id number]) on 05/09/2019 12:34:54 PM
[2019-05-07] MEDS: ARIXTRA SUBQ SCH (09:04)
--- NOTE | 2019-05-07 09:04 | Diag Imaging Result Doc PS360 ---
EXAM: BA SWALLOW-ESOPHAGUS 05/06/2019 HISTORY: evaluate esophagojejunostomy anastamosis TECHNIQUE: Water-soluble swallow. COMMENT: The patient was able to swallow Omnipaque 300 without difficulty. The esophagus is unremarkable in appearance. There has been esophagojejunostomy. There is no evidence of leak of contrast from the anastomosis. Contrast is seen passing distally in the jejunal loop. There is no evidence of reflux during the procedure. IMPRESSION: No evidence of anastomotic leak. Electronically signed by Isidoro Blevins 05/07/2019 9:02 AM
--- NOTE | 2019-05-07 10:15 | PROGRESS NOTE ---
DATE: 05/07/2019 INTERVAL HISTORY: Mr. Vergara was transferred to PVC unit. He did not have any other acute events overnight. His vitals have been unremarkable. He is supposed to go for small bowel series this morning. SUBJECTIVE: Mr. Vergara was sleeping in the bed, does not appear in any acute distress, and states that his abdominal pain is improving. He denies any chest pain. His cough is still there but decreasing. He is not making much sputum. REVIEW OF SYSTEMS: Positive for mild abdominal pain. Positive for increased frequency of urination. Negative for worsening cough. Negative for passing gas. His family is at bedside. OBJECTIVE: Vital Signs: Temperature 98.6 degrees, pulse 73, respiratory rate 20, blood pressure 121/68, saturating 96% on 2 L nasal cannula. General: Does not appear in any acute distress. Oral cavity is dry. Lungs: Air entry bilaterally equal. No wheeze or rhonchi. Inspiratory crackles bilateral infrascapular region more pronounced on the left. No egophony. Cardiovascular: S1, S2 normal. No murmur, rub, or gallop. Abdomen: Soft. Midline laparotomy scar with mild tenderness around it. Left lower quadrant jejunostomy tube. Extremities: No lower extremity edema. Neck: He has a right-sided neck internal jugular catheter. Neurologic: He is alert and oriented x3. He is able to reposition. He is able to move all of his extremities and change position in the bed without any help. Abdomen: He has mild bowel sounds. LABORATORY DATA: WBC 12,000, hemoglobin 11.2, platelet 358,000. BUN 22, creatinine 0.9, blood sugar 179. Microbiology: No positive data so far. Chest x-ray this morning suggests very low lung volumes. There is nonspecific infiltrate in left lower lobe. ASSESSMENT AND PLAN: 1. Moderately-differentiated gastric adenocarcinoma, status post total gastrectomy and Candace-en-Y esophagojejunal anastomosis and open jejunostomy tube placement. Today is postoperative day 4. Continue TPN and intravenous hydromorphone for pain management. Followup small bowel series today. 2. Acute hypoxic respiratory failure, occasional cough with expectoration. This is likely because of poor respiratory effort because of recent abdominal surgery leading to atelectasis. His lung infiltrate appears to have improved on chest x-ray this morning after a dose of Lasix yesterday. He continues to have mild leukocytosis which could be a stress response post surgery. He has not had any fever or worsening cough, and in fact, his oxygen requirement has been decreasing. I will monitor him for any signs of postoperative pneumonia in the future. 3. History of peripheral artery disease with femoral-femoral bypass on chronic warfarin therapy and history of coronary artery disease requiring stent in 2019. I will get repeat EKG, monitor his QTc since he has been on scheduled Zofran. Continue therapeutic dose of fondaparinux and rectal aspirin. He has good circulation in bilateral feet, though pulses are difficult to palpate on the left lower extremity, but capillary refill time is less than 2 seconds. 4. Others. He has history of essential hypertension, hyperlipidemia. I am still awaiting report from outside facility. DISPOSITION: Continue to monitor patient in [facility]. Plan of care discussed with him. Awaiting further surgical recommendation regarding use of jejunostomy, starting to use jejunostomy tube. All of the patient's questions have been answered satisfactorily. cc: Jung Kaba MD
[2019-05-07] MEDS: LR 1,000 ML IV SCH (12:10)
[2019-05-07] MEDS: ASPIRIN PR SCH (21:06)
[2019-05-07] MEDS: LIPOSYN 20% 250 ML IV SCH (21:12)
[2019-05-08] MEDS: POTASSIUM CHLORIDE IV SCH ×16 (00:07→00:08)
[2019-05-08] MEDS: MAGNESIUM SULFATE IV SCH ×16 (00:07→00:08)
[2019-05-08] MEDS: TPN ELECTROLYTES IV SCH ×16 (00:07→00:08)
[2019-05-08] MEDS: [UNRECOGNIZED DRUG - OTHER] IV SCH ×16 (00:07→00:08)
[2019-05-08] MEDS: ZOFRAN IV SCH ×4 (02:58→20:44)
[2019-05-08] MEDS: HUMALOG SUBQ SCH ×4 (02:58→22:02)
[2019-05-08 06:25] LABS: BASO# 0.05 X1000 (0.0-0.2); BASO% 0.4 % (0.0-0.8); EOS# 0.23 X1000 (0.0-0.7); EOS% 1.9 % (0.0-10.0); HEMATOCRIT 31.9 % (42.0-52.0); HEMOGLOBIN 10.4 g/dL (14.0-18.0); IMM GRAN# 0.18 X1000 (0.0-0.04); IMM GRAN% 1.5 % (0.0-0.5); LYMPH# 1.37 X1000 (1.2-3.4); LYMPH% 11.4 % (20.5-51.1); MCH 30.6 PG (27-31); MCHC 32.6 g/dL (33-37); MCV 93.8 FL (81-99); MONO# 1.41 X1000 (0.11-0.59); MONO% 11.7 % (1.7-9.3); MPV 9.7 FL (7.4-10.4); NEUT# 8.83 X1000 (1.4-6.5); NEUT% 73.1 % (42.2-75.2); PLT 390 X1000 (130-400); RDW 13.5 % (11.5-14.5); WBC 12.07 X1000 (4.8-10.8)
[2019-05-08 06:51] LABS: MAGNESIUM 1.8 mg/dL (1.5-2.7); PHOSPHORUS 3.7 mg/dL (2.7-4.5); PREALBUMIN 15.6 mg/dL (20-40)
[2019-05-08 06:52] LABS: AGAP 13; BUN 22 mg/dL (8-22); CHLORIDE 97 mmol/L (98-107); COSMO 279; CREATININE 0.8 mg/dL (0.7-1.2); ESTIMATED GFR > 60; GLUCOSE 194 mg/dL (70-104); SODIUM 135 mmol/L (136-145); TCO2 25 mmol/L (25-35)
[2019-05-08] MEDS ORDERED: LASIX IV ONE (08:33)
[2019-05-08] MEDS: DULCOLAX PR SCH (09:34)
[2019-05-08] MEDS: ARIXTRA SUBQ SCH (09:34)
[2019-05-08] MEDS: BENTYL GT PRN ×2 (09:34→22:09)
--- NOTE | 2019-05-08 09:36 | PROGRESS NOTE ---
DATE: 05/08/2019 INTERVAL HISTORY: No acute events overnight. He underwent small bowel series which did not detect any anastomotic leak, so he was started on jejunal feed. However, he started experiencing extreme cramping after jejunal feed was started and it was stopped. In the morning time he complains of intermittent abdominal cramping and wanted me to give him anti-cramp medication. He also complains of rib cage level chest discomfort and states that he felt significantly better after a dose of Lasix yesterday. REVIEW OF SYSTEMS: Negative for chest pressure. Positive for shortness of breath on exertion. Negative for nausea. Positive for abdominal cramps. Positive for flatus. VITALS: Temperature of 98.6 degrees, pulse 79, respiratory 17, blood pressure 130/67, saturating 94% on room air. PHYSICAL EXAMINATION: Not in acute distress.HEENT: Oral cavity is moist. Lungs: Air entry bilaterally equal. No wheeze, rhonchi. He does have inspiratory crackles in infrascapular region. Heart: S1, S2 normal. No murmur, rub, or gallop. Abdomen: Obese, soft. There is mild generalized tenderness. There is midline laparotomy scar. Left lower quadrant jejunostomy tube. Extremities: He does not have lower extremity edema. He has a right-sided neck central venous line. Neurologic: He is alert and oriented x3. He is able to reposition himself without anyone's help without any focal weakness. LABS: WBC 37648, hemoglobin 10.4, platelet 390,000. Sodium 135, chloride 97, BUN is 22, creatinine 0.8, blood glucose 194. His cholesterol and triglycerides are within acceptable range. Microbiology: Sputum culture in lab. IMAGING: Chest x-ray this morning has very low lung volumes without change from yesterday. Electrocardiogram yesterday had normal sinus rhythm. ASSESSMENT AND PLAN: 1. Moderately-differentiated gastric adenocarcinoma, status post total gastrectomy and Candace-en-Y esophagojejunostomy anastomosis and open jejunostomy tube placement. Today is postoperative day 5. 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 Again challenge the patient with jejunal feed. I will order some antispasmodic medication. 2. Acute hypoxic respiratory failure with occasional cough with expectoration, now improving. I will give him an additional dose of intravenous Lasix. He is breathing well on room air. Sputum culture has not shown any growth to date. 3. History of peripheral artery disease with femoral-femoral bypass and on chronic warfarin therapy; history of coronary artery disease requiring stent in 2019. His EKG has been unremarkable. Continue therapeutic dose of fondaparinux and rectal aspirin. He has good capillary refill bilateral lower extremities. In future I will resume his home medications of simvastatin, fenofibrate, lisinopril. 4. Others. He has history of essential hypertension, hyperlipidemia. Records from outside hospital were requested but is still pending. DISPOSITION: Continue monitor patient in [facility]. Plan of care discussed with the patient and his questions have been answered. cc: Jung Kaba MD
[2019-05-08] MEDS: LR 1,000 ML IV SCH (11:59)
--- NOTE | 2019-05-08 20:02 | GENERAL SURGERY PROGRESS NOTE ---
DATE: 05/08/2019 SUBJECTIVE: The patient is doing well today. Mild abdominal cramping. However, he has passed a significant amount of gas and a small bowel movement. No nausea or vomiting. He is tolerating tube feeds at 10 mL an hour since noon today. OBJECTIVE: vital signs: He is afebrile. Vital signs are stable. General: He is awake and alert in no acute distress. Gastrointestinal: Soft, nondistended, appropriately tender. Incisional dressing is clean and dry. ASSESSMENT AND PLAN: A 58-year-old male status post total gastrectomy and J-tube placement. We will advance his tube feeds to 20 mL an hour tonight. cc: MD Jung Garza MD
[2019-05-08] MEDS: ASPIRIN PR SCH (20:44)
[2019-05-08] MEDS: LIPOSYN 20% 250 ML IV SCH (20:44)
[2019-05-09] MEDS: MAGNESIUM SULFATE IV SCH ×8 (01:54)
[2019-05-09] MEDS: TPN ELECTROLYTES IV SCH ×8 (01:54)
[2019-05-09] MEDS: POTASSIUM CHLORIDE IV SCH ×8 (01:54)
[2019-05-09] MEDS: [UNRECOGNIZED DRUG - OTHER] IV SCH ×8 (01:54)
[2019-05-09] MEDS: ZOFRAN IV SCH ×2 (01:55→07:33)
[2019-05-09] MEDS: HUMALOG SUBQ SCH ×4 (01:55→21:53)
[2019-05-09 06:07] LABS: MAGNESIUM 1.9 mg/dL (1.5-2.7); PHOSPHORUS 3.8 mg/dL (2.7-4.5)
[2019-05-09 06:13] LABS: AGAP 11; BUN 25 mg/dL (8-22); CALCIUM 8.8 mg/dL (8.8-10.2); CHLORIDE 98 mmol/L (98-107); COSMO 281; CREATININE 0.8 mg/dL (0.7-1.2); ESTIMATED GFR > 60; GLUCOSE 208 mg/dL (70-104); POTASSIUM 4.3 mmol/L (3.5-5.1); SODIUM 135 mmol/L (136-145); TCO2 26 mmol/L (25-35)
[2019-05-09] MEDS: BENTYL GT PRN ×2 (07:36→17:31)
[2019-05-09] MEDS ORDERED: ZOFRAN IV PRN (07:49)
[2019-05-09] MEDS: DULCOLAX PR SCH (09:52)
[2019-05-09] MEDS: ARIXTRA SUBQ SCH (09:52)
[2019-05-09] MEDS: LR 1,000 ML IV SCH (09:56)
--- NOTE | 2019-05-09 10:47 | PROGRESS NOTE ---
DATE: 05/09/2019 INTERVAL HISTORY: During the daytime, Mr. Vergara was tolerating his J-tube feeding very well except occasional abdominal cramps which were well-controlled on antispasmodic as well as his hydromorphone [employer] pump. Later on, at nighttime, his tube feed rate was increased and the patient had started experiencing worsening abdominal pain so his tube feeds had to be held around 3 a.m. this morning. He has been able to pass gas when he laid down on the left lateral position. SUBJECTIVE: Mr. Vergara is feeling better this morning and denies any more abdominal pain. We discussed about normal postoperative course after abdominal surgery. Discussed about rechallenging his J-tube feed. He denies any chest pain. He denies any shortness of breath or cough. He has been passing gas. REVIEW OF SYSTEMS: Positive for flatus. Positive for mild abdominal discomfort, especially in the left lower quadrant. Negative for burning. Negative for any bowel movements. Negative for headache. VITALS: Temperature of 97.4 degrees, pulse 74, respiratory rate 18, blood pressure 105/53, he is saturating 90% on room air. PHYSICAL EXAMINATION: Not in acute distress. Oral cavity is moist. Lungs: Air entry bilaterally equal. No wheeze or rhonchi or crackles in the right hemithorax. He does have mild crackles in the left infrascapular region; however, improved from yesterday. Cardiovascular: S1, S2 normal. No murmur, rub, or gallop. Abdomen: Soft. He has a midline laparotomy scar. The dressing appears to be soaked with bloody-looking, serosanguineous drainage. He has a left quadrant J-tube as well. He has a right neck central venous catheter. Active bowel sounds. No lower extremity edema. He is alert and oriented x3. He was able to lie down flat on the bed and then change his position to left lateral position. Moving his extremities spontaneously neurologically. LABS: Suggestive of a BUN 25, creatinine 0.8, blood glucose 198. His magnesium is 1.9. No positive microbiological data. No new imaging. ASSESSMENT AND PLAN: 1. Moderately-differentiated gastric adenocarcinoma, status post total gastrectomy and Candace-en-Y esophagojejunostomy anastomosis, and open jejunostomy tube placement. Today is postoperative day 6. Continue total parenteral nutrition, intravenous hydromorphone [employer]ER for pain management. Start patient on J-tube feeds again. Continue dicyclomine as needed for abdominal cramps. He has been denying any nausea or vomiting, and I will change his Zofran to every 6 hours as needed. 2. History of peripheral artery disease with femoral-femoral bypass on the left, on chronic warfarin therapy, history of coronary artery disease requiring stent in 2019. These are currently stable. I will continue therapeutic dose of fondaparinux and a daily rectal aspirin. He has good capillary refill in bilateral lower extremities on lower extremity examination. Once he has consistent J-tube input and has a bowel movement on it, I will consider resuming his home medications of simvastatin, fenofibrate, lisinopril. He would also need resumption of his warfarin in the future. 3. Acute hypoxic respiratory failure with occasional cough with expectoration, likely because of atelectasis which is improving; he has history of essential hypertension and hyperlipidemia. Records from outside hospital were requested but still pending regarding his history of coronary artery disease. 4. Disposition. I will continue to monitor the patient in [facility]. Plan of care discussed with the patient. His questions have been answered. We appreciate general surgery team for allowing us to partake in this patient's care. cc: Jung Kaba MD
[2019-05-09] MEDS ORDERED: DULCOLAX PR PRN (17:44)
[2019-05-09] MEDS: ASPIRIN PR SCH (21:52)
[2019-05-09] MEDS: LIPOSYN 20% 250 ML IV SCH (21:52)
[2019-05-10] MEDS: MAGNESIUM SULFATE IV SCH ×16 (03:38→03:39)
[2019-05-10] MEDS: HUMALOG SUBQ SCH ×4 (03:38→22:24)
[2019-05-10] MEDS: TPN ELECTROLYTES IV SCH ×16 (03:38→03:39)
[2019-05-10] MEDS: POTASSIUM CHLORIDE IV SCH ×16 (03:38→03:39)
[2019-05-10] MEDS: [UNRECOGNIZED DRUG - OTHER] IV SCH ×16 (03:38→03:39)
--- NOTE | 2019-05-10 03:59 | GENERAL SURGERY PROGRESS NOTE ---
DATE: 05/09/2019 SUBJECTIVE: The patient is doing well today. No nausea, vomiting, fever, chills or abdominal pain; however, last night he did have abdominal crampiness requiring his tube feeds to be held for a while. The tube feeds were restarted at 20 mL an hour at 11 a.m. this morning and has been tolerated for the last 6 hours. OBJECTIVE: Vital signs: He is afebrile. Vital signs are stable. General: He is awake, alert, no acute distress. GI: Soft, nontender, nondistended. Incisional dressings clean and dry. LABORATORY DATA: Metabolic profile was reviewed and unremarkable. ASSESSMENT AND PLAN: A 58-year-old male status post total gastrectomy and J-tube placement. We will advance his tube feeds to 30 mL an hour and monitor for his tolerance. Hopefully we can wean him off the TPN this week. cc: MD Jung Garza MD
--- NOTE | 2019-05-10 06:24 | GENERAL SURGERY PROGRESS NOTE ---
DATE: 05/10/2019 SUBJECTIVE: Patient seems to be doing better. He seems to be tolerating his tube feeds. They are up to 30. He is not having as much cramping. He has had reported passage of gas, and reported bowel movement. He has been hemodynamically stable. OBJECTIVE: Vital Signs: Patient is currently afebrile. His vital signs are stable. General: No acute distress. Cardiovascular: Regular rate and rhythm. Lungs: Grossly clear. Abdomen: Soft. Dressing removed. Some drainage noted. Overall, incision seems to be healing. Jejunostomy tube feeding is going currently. ASSESSMENT AND PLAN: A 58-year-old gentleman currently postoperative day #7 from total gastrectomy. Postoperative state at this time. He seems to be doing well. We will put him on a clear liquid diet with 6 small trays. We will continue to monitor him, and keep him on his tube feeds, although I think we can transition him off his TPN. cc: MD Jung Holder MD
[2019-05-10 07:01] LABS: INR 1.06; PROTIME 13.9 Seconds (11.0-16.0)
[2019-05-10 07:15] LABS: AGAP 13; BUN 21 mg/dL (8-22); CHLORIDE 99 mmol/L (98-107); COSMO 282; CREATININE 0.8 mg/dL (0.7-1.2); ESTIMATED GFR > 60; GLUCOSE 226 mg/dL (70-104); MAGNESIUM 2.1 mg/dL (1.5-2.7); PHOSPHORUS 3.7 mg/dL (2.7-4.5); POTASSIUM 4.2 mmol/L (3.5-5.1); SODIUM 136 mmol/L (136-145); TCO2 24 mmol/L (25-35)
[2019-05-10] MEDS: DULCOLAX PR SCH (09:20)
[2019-05-10] MEDS: ARIXTRA SUBQ SCH (09:21)
[2019-05-10] MEDS: LR 1,000 ML IV SCH (10:08)
--- NOTE | 2019-05-10 10:45 | PROGRESS NOTE ---
DATE: 05/10/2019 INTERVAL HISTORY: No acute events overnight. The patient did have an episode of temperature of 100 degrees. His J-tube feeding were increased, and he has been tolerating it well without any discomfort. He did have some abdominal cramps, but he lied down in his left lateral position and was able to pass gas. He denies any chest pain or shortness of breath. He only has occasional cough. He has not been using his hydromorphone pump. PHYSICAL EXAMINATION: Vital Signs: Temperature 99.4 degrees, pulse 80, respiratory 13, blood pressure 130/69, and saturating 94% on room air. General: Not in acute distress. HEENT: Oral cavity is moist. Lungs: Air entry bilaterally equal. No wheeze, rhonchi, or crackles except mild crackles in left infrascapular region. Cardiovascular: S1, S2 normal. No murmur, rub, or gallop. Abdomen: Obese, soft, and nontender. Active bowel sounds. He has a midline laparotomy scar. The dressing has been recently changed. It is not soaked. He has a left quadrant J tube to the right neck central line. Extremities: No lower extremity edema. He does have some discoloration of his left leg which appears chronic. Intact dorsalis pedis and posterior tibial pulses on right lower extremity. Left lower extremity pulsations are difficult to palpate considering his prior [id number]-[id number] bypass though the capillary refill time is 2 seconds. LABORATORY: No CBC today. INR of 1.06. BMP suggestive of BUN of 21, creatinine 0.8, and blood sugar 230. No positive microbiological or no new imaging. ASSESSMENT AND PLAN: 1. Moderately-differentiated gastric adenocarcinoma, status post total gastrectomy and Candace-en-Y esophageal jejunal anastomosis, and open jejunostomy tube placement. Today is postoperative day 7. Follow up final pathology report to rule out new lymph node metastasis. Continue TPN, hydromorphone patient-controlled analgesia pump, and J tube feed management as per General Surgical team. I will keep him on dicyclomine as needed for abdominal cramps. He has been tolerating J-tube feeds well so far. 2. History of femoral-femoral bypass on the left on chronic warfarin therapy, history of coronary artery disease requiring stent in 2019. Continue therapeutic dose of subcutaneous fondaparinux, and start warfarin after discussion with the surgery team. He has good capillary refill in left lower extremity. Continue rectal aspirin, and he if he is able to tolerate J-tube feeds well, I will convert him to J- tube aspirin for his history of coronary artery disease. I have requested records from his outside provider. 3. Acute hypoxic respiratory failure with occasional cough with expectoration. Sputum culture did not have any growth. His mild temperature yesterday could be related to atelectasis. I will follow up with chest x-ray tomorrow to make sure he does not have any developing postoperative pneumonia. 4. Others. He is on fondaparinux therapeutic dose, which would suffice DVT prophylaxis. I will encourage ambulation. Physical Therapy has been consulted. Continue to monitor patient's PVC. Plan of care discussed with the patient and his at bedside. All of the questions have been satisfactorily answered. cc: Jung Kaba MD MTDD
[2019-05-10] MEDS ORDERED: MORPHINE IV PRN (11:51)
[2019-05-10] MEDS: COUMADIN GT SCH ×2 (14:35→22:14)
[2019-05-10] MEDS: LIPOSYN 20% 250 ML IV SCH (21:57)
[2019-05-10] MEDS: ASPIRIN PR SCH (22:15)
[2019-05-11] MEDS: MAGNESIUM SULFATE IV SCH ×8 (02:52)
[2019-05-11] MEDS: [UNRECOGNIZED DRUG - OTHER] IV SCH ×8 (02:52)
[2019-05-11] MEDS: TPN ELECTROLYTES IV SCH ×8 (02:52)
[2019-05-11] MEDS: POTASSIUM CHLORIDE IV SCH ×8 (02:52)
[2019-05-11] MEDS: HUMALOG SUBQ SCH ×4 (03:09→20:46)
[2019-05-11 05:55] LABS: BASO# 0.08 X1000 (0.0-0.2); BASO% 0.4 % (0.0-0.8); EOS# 0.45 X1000 (0.0-0.7); EOS% 2.5 % (0.0-10.0); HEMATOCRIT 31.5 % (42.0-52.0); HEMOGLOBIN 10.1 g/dL (14.0-18.0); IMM GRAN# 1.04 X1000 (0.0-0.04); IMM GRAN% 5.8 % (0.0-0.5); LYMPH# 1.78 X1000 (1.2-3.4); LYMPH% 9.9 % (20.5-51.1); MCH 30.1 PG (27-31); MCHC 32.1 g/dL (33-37); MONO% 9.5 % (1.7-9.3); MPV 9.8 FL (7.4-10.4); NEUT# 12.93 X1000 (1.4-6.5); NEUT% 71.9 % (42.2-75.2); PLT 525 X1000 (130-400); RBC 3.35 XMIL (4.7-6.1); RDW 13.5 % (11.5-14.5); WBC 17.98 X1000 (4.8-10.8)
[2019-05-11 06:16] LABS: AGAP 13; BUN 20 mg/dL (8-22); CALCIUM 8.5 mg/dL (8.8-10.2); CHLORIDE 100 mmol/L (98-107); COSMO 286; CREATININE 0.7 mg/dL (0.7-1.2); ESTIMATED GFR > 60; GLUCOSE 267 mg/dL (70-104); MAGNESIUM 2.3 mg/dL (1.5-2.7); PHOSPHORUS 3.5 mg/dL (2.7-4.5); POTASSIUM 4.4 mmol/L (3.5-5.1); SODIUM 137 mmol/L (136-145); TCO2 24 mmol/L (25-35)
--- NOTE | 2019-05-11 06:49 | GENERAL SURGERY PROGRESS NOTE ---
DATE: 05/11/2019 SUBJECTIVE: Patient tolerated his clear liquids. He has had bowel movements. He is doing well. OBJECTIVE: Vital Signs: Patient is currently afebrile. His vital signs stable. General: No acute distress. Cardiovascular: Regular rate and rhythm. Lungs: Grossly clear. Abdomen: Soft, appropriately tender. ASSESSMENT AND PLAN: A 58-year-old gentleman, currently postoperative day number 8 from total gastrectomy. #1 postop state: At this time patient seems to be doing okay. We will advance him to a full liquid diet, still want to do 6 small trays. We will add Ensure's. We will stop his TPN. We will keep his tube feeds going for right now just to make sure he is able tolerate everything. His pathology did come back. He does have 1 lymph node of 18 that were positive but margins were negative. We will get Dr. Church to see him while he is in the hospital. We will continue current treatment. Hopefully, he can be discharged here in the near future. cc: MD Jung Holder MD
--- NOTE | 2019-05-11 07:53 | Diag Imaging Result Doc PS360 ---
EXAM: CHEST-2 VIEWS INDICATION: R/o left lower lobe pneumonia TECHNIQUE: 2 views COMPARISON: 05/07/2019 FINDINGS: There is linear opacity at the left lung base that is similar to previous study suggesting atelectasis and/or infiltrate. No new consolidation is appreciated. Cardiac silhouette is stable. IMPRESSION: Stable chest. Electronically signed by Vladislav Noe 05/11/2019 7:50 AM
[2019-05-11] MEDS: COUMADIN GT SCH (08:50)
[2019-05-11] MEDS: DULCOLAX PR SCH (08:51)
[2019-05-11] MEDS: ARIXTRA SUBQ SCH (08:51)
[2019-05-11 10:23] LABS: IRON SATURATION 15 %; TIBC 197 ug/dL; TOTAL IRON 29 ug/dL (53-167); UNBOUND IRON 168 ug/dL (112-346)
--- NOTE | 2019-05-11 12:39 | PROGRESS NOTE ---
DATE: 05/11/2019 SUBJECTIVE: I have seen and examined Mr. Vergara today. Mr. Vergara refers to be doing a lot better. He said he has already been seen early on by Surgery and has now been advanced to full liquid diet. He also said he has been seen by Hematology/Oncology. He denies any new complaints. OBJECTIVE: Vital signs: Blood pressure is 125/79, pulse of 78. Respiration is 18, temperature is 98.2. General: Mr. Vergara is a 58-year-old gentleman. He is in bed, no distress. HEENT: Mucosa is pink and moist. Anicteric. Acyanotic. Neck: Supple. Chest: Good air entry bilaterally. There were no crepitations, no rhonchi. Cardiovascular: Regular rate and rhythm. No murmurs, no rubs, no gallops. Abdomen: Soft, is minimally distended. Bowel sounds present. There is a midline laparotomy incision which is covered with sterile dressing. There is a G-tube on the left side of the abdominal wall. Extremities: No pedal edema. PATIENT MEDICATIONS: Have all been reviewed. LABORATORY DATA: WBC is 17.98, hemoglobin of 10.1, platelet count of 525. Chemistry is also reviewed, is unremarkable except glucose of 265. Pathology report has been reviewed. The patient has an adenocarcinoma. Margins negative. However, there was a lymph node involvement 03/13. ASSESSMENT: 1. 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 The patient is status post total gastrectomy and Candace-en-Y esophageal jejunal anastomosis. Today is day 8 postop. He also has a G-tube placement. 2. History of severe atherosclerosis with peripheral vascular disease. Patient is status post multiple femoral-femoral bypasses. He is on chronic Coumadin therapy. This has been started. 3. Hypoxemia presumably from atelectasis. We will encourage incentive spirometer. 4. In general, I think Mr. Vergara is fairly stable. He has been started back on his chronic Coumadin therapy as well as the aspirin. He is tolerating his J tube feedings. He has also been started on full liquid diet. I think from medical standpoint, he is fairly stable, will be waiting on further recommendations from surgery. cc: Elias Pitts MD
--- NOTE | 2019-05-11 16:20 | HEMO/ONC CONSULTATION ---
DATE: 05/11/2019 ADMITTING PHYSICIAN: Dr. Jef Munoz. REQUESTING PHYSICIAN: Dr. Jef Munoz. We appreciate this consult. CHIEF COMPLAINT: Gastric adenocarcinoma. HISTORY OF PRESENT ILLNESS: Mr. Parish Vergara is a pleasant 58-year-old male well known to Dr. Church with a history of moderately differentiated gastric adenocarcinoma. He was admitted for total gastrectomy with Dr. Munoz. Patient is again status post total gastrectomy with Candace-en-Y, esophageal jejunal anastomosis and J-tube placement. The patient is recovering well. He also has a history of severe atherosclerosis with peripheral vascular disease and is status post multiple femoral to femoral bypasses. He is currently on chronic Coumadin therapy. We are consulted to consider adjuvant chemotherapy. PAST MEDICAL HISTORY: 1. Gastric adenocarcinoma. 2. Hypertension. 3. Hyperlipidemia. 4. Diabetes mellitus type 2. 5. Coronary artery disease . 6. Obstructive sleep apnea. 7. Cataracts. 8. GI bleed. PAST SURGICAL HISTORY: 1. Cataract extraction. 2. Multiple femoral to femoral bypasses. 3. Coronary stent placement. 4. Left lower extremity skin graft. 5. Total gastrectomy. 6. Jejunostomy placement. FAMILY HISTORY: Significant for bladder cancer in the patient's father. SOCIAL HISTORY: The patient has a history of smoking 3 packs cigarettes daily for 33 years. He drinks 3 mixed drinks 3 times weekly. He denies illicit drug use. MEDICATIONS ON ADMISSION: 1. Aspirin 81 mg. 2. Vitamin B12. 3. Farxiga. 4. Fenofibrate. 5. Lisinopril. 6. Glucophage. 7. Fish oil. 8. Simvastatin. 9. Coumadin. ALLERGIES: Heparin. REVIEW OF SYSTEMS: A 14 point review of systems was obtained and is negative except for mentioned in HPI. PHYSICAL EXAMINATION: Mr. Vergara is a pleasant 58-year-old male lying supine in bed in no immediate distress.Vital Signs: Temperature 98.8 degrees, blood pressure 135/74, heart rate 81, respirations 18, O2 saturation 94% on room air. HEENT: Normocephalic, atraumatic. Mucous membranes slightly pale and moist. Sclerae is anicteric. Extraocular movements intact. Neck: Supple. Lungs: Clear to auscultation bilaterally. Chest expansion is equal bilaterally. CV: S1, S2 is heard. No murmurs, rubs or gallops. Abdomen: Nondistended. Extremities: No clubbing, cyanosis or edema. Dermatologic: No rashes, bruises or lesions. Neurologic: The patient is awake, alert, and oriented x3, has no focal deficit. LABORATORY DATA: Hemoglobin 10.1, hematocrit 31.5, white blood cell count 17.98, platelets 525,000. Sodium 137, potassium 4.4, chloride 100, CO2 is 24, BUN 20, creatinine 0.7, glucose 267, calcium is 8.5, phosphorus 3.5, magnesium 2.3. IMAGING STUDIES: Chest x-ray reveals left lung base with atelectasis versus. ASSESSMENT/PLAN: 1. Moderately differentiated gastric adenocarcinoma status post total gastrectomy with jejunostomy tube placement patient postop day 7. We will recommend adjuvant 5-FU and cisplatin pending pathology. We will continue to follow. The patient would not be treated until completely healed from surgery. 2. Acute hypoxemic respiratory failure, currently following chest x-ray with some questionable pneumonia per hospitalist. 3. Leukocytosis secondary to neutrophilia likely reactive. We will continue to monitor. 4. Thrombocytosis, questionably reactive. We will check an iron saturation at this time and replete if necessary. 5. We will follow along with you make further recommendations pending outcomes. The above reflects the history, exam, assessment, and plan of Dr. Church. Dictated by ANDI Concepcion for Sumit Church MD cc: ANDI Concepcion MD Raphael K. Quansah, MD
[2019-05-11] MEDS ORDERED: LIDODERM TOP ONE (17:34)
[2019-05-11] MEDS ORDERED: COUMADIN PO ONE (21:00)
[2019-05-12] MEDS: HUMALOG SUBQ SCH ×4 (03:34→20:16)
--- NOTE | 2019-05-12 06:05 | GENERAL SURGERY PROGRESS NOTE ---
DATE: 05/12/2019 SUBJECTIVE: Patient is doing well. OBJECTIVE: Vital Signs: Patient is currently afebrile. His vital signs are stable. General: No acute distress. Cardiovascular: Regular rate and rhythm. Lungs: Grossly clear. Abdomen: Soft. Appropriately tender. Incision seems to be healing well. ASSESSMENT AND PLAN: A 58-year-old gentleman, currently postoperative day #9 from total gastrectomy. Postoperative state at this time. Patient seems to be doing okay. His white blood cell count did go up to 17. He has been ambulating. He seems to be doing okay overall. This may be a respiratory issue although his chest x-ray seems relatively stable. It could just be centrally from atelectasis. He is not tachycardic or having abdominal pain so I do not think he is having any kind of leak although that is a possibility also. Clinically, honestly he looks pretty good, and from a surgical point of view, and if okay with the hospitalist, then we can get home health. I think he can probably be discharged home, but we will what the hospitalist evaluate and make sure there is nothing that I am missing. Hopefully, again, he can be discharged home today. cc: MD Elias Holder MD
[2019-05-12 06:37] LABS: HEMOGLOBIN A1C 6.8 % (4.8-6.0)
[2019-05-12 08:34] LABS: AGAP 13; ALB/GLOB RATIO 1.2; ALBUMIN 3.3 g/dL (3.5-5.0); ALKALINE PHOSPHATASE 331 U/L (32-122); BUN 24 mg/dL (8-22); CALCIUM 8.3 mg/dL (8.8-10.2); CHLORIDE 98 mmol/L (98-107); COSMO 281; CREATININE 0.7 mg/dL (0.7-1.2); ESTIMATED GFR > 60; GLUCOSE 192 mg/dL (70-104); GOT 37 U/L (10-34); GPT 88 U/L (10-44); POTASSIUM 5.2 mmol/L (3.5-5.1); SODIUM 136 mmol/L (136-145); TCO2 25 mmol/L (25-35); TOTAL BILIRUBIN 0.27 mg/dL (0.20-1.00)
[2019-05-12] MEDS: ASPIRIN PO SCH (08:50)
[2019-05-12] MEDS: DULCOLAX PR SCH (08:51)
[2019-05-12 09:10] LABS: BASO# 0.16 X1000 (0.0-0.2); BASO% 0.7 % (0.0-0.8); EOS# 0.43 X1000 (0.0-0.7); HEMATOCRIT 29.9 % (42.0-52.0); HEMOGLOBIN 9.7 g/dL (14.0-18.0); IMM GRAN# 1.28 X1000 (0.0-0.04); IMM GRAN% 5.8 % (0.0-0.5); LYMPH# 2.03 X1000 (1.2-3.4); LYMPH% 9.2 % (20.5-51.1); MCH 30.7 PG (27-31); MCHC 32.4 g/dL (33-37); MCV 94.6 FL (81-99); MONO% 10.9 % (1.7-9.3); MPV 10.1 FL (7.4-10.4); NEUT# 15.66 X1000 (1.4-6.5); NEUT% 71.4 % (42.2-75.2); PLT 573 X1000 (130-400); RBC 3.16 XMIL (4.7-6.1); RDW 13.8 % (11.5-14.5); WBC 21.96 X1000 (4.8-10.8)
[2019-05-12 09:13] LABS: EOS 1 % (1-10); LYMPHS 7 % (21-51); MONO 9 % (1-9); SEGS 83 % (42-75)
--- NOTE | 2019-05-12 09:29 | Diag Imaging Result Doc PS360 ---
EXAM: CHEST-2 VIEWS 05/12/2019 HISTORY: hypoxia TECHNIQUE: Two views the chest COMMENT: There is a right internal jugular central venous catheter with its tip in the specimen vena cava. There are pleural calcifications bilaterally. There is elevation of the left hemidiaphragm and blunting of the right costophrenic angle. Blunting of the left costophrenic angle has improved since 05/11/2019 otherwise are has been no significant change. IMPRESSION: Improved left pleural effusion. Otherwise stable chest. Electronically signed by Isidoro Blevins 05/12/2019 9:27 AM
[2019-05-12] MEDS: LOKELMA POWDER PACKET PO SCH ×3 (10:05→17:09)
--- NOTE | 2019-05-12 12:13 | PROGRESS NOTE ---
DATE: 05/12/2019 SUBJECTIVE: I have seen and examined Mr. Vergara today. Mr. Vergara refers to be doing well. He denies any complaint except abdominal pain whenever he coughs. OBJECTIVE: Vital Signs: Blood pressure 109/63, pulse 71, respirations 18, and temperature is 98.3 degrees. The patient is saturating 95% on room air. General: Mr. Vergara is a 58-year-old male. He is in bed in no distress. Mucosa is pink and moist. Anicteric. Acyanotic. Neck: Supple. Patient has a right central line catheter. Chest: Good air entry bilaterally. There was no crepitations. No rhonchi. Cardiovascular: Regular rate and rhythm. No murmurs. No rubs. No gallops. GI: Abdomen is soft, minimally tender around the jejunostomy tube. There is a midline laparoscopic incision which is affronted with surgical clips. The dressing is minimally soiled. Bowel sounds present. Extremities: No pedal edema. 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 There is no focal deficit. LABORATORY DATA: WBC is up to 21.96, hemoglobin 9.7, and platelet count of 573,000. Chemistry is also reviewed. Potassium is 5.2. Rest of chemistry is unremarkable. AST and ALT have also increased. ASSESSMENT: 1. 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 The patient is status post total gastrectomy and Candace-en-Y esophageal jejunal anastomosis. Today, is day 9 postop. The patient has a jejunal tube. 2. Severe peripheral vascular disease. The patient is status post multiple femoral femoral bypasses. He is currently on chronic Coumadin therapy. 3. Hypoxemia secondary to atelectasis, improved. Patient is currently off supplemental oxygen. He is doing much better. 4. Leukocytosis. The patient is afebrile and not tachycardic. However, he continues to having some abdominal pain especially with coughing which could all be due to postsurgical changes. However, since the chest x-ray is unremarkable, I think it is reasonable to do imaging studies of the abdomen to rule out any ongoing intra-abdomen infection. We are also going to remove the central line, culture the blood, and also culture the tip of the central line to rule out any central line associated infection. 5. The patient's disposition will depend on the results of the studies that have been ordered. Hopefully, we can get him home tomorrow if everything is negative. cc: Elias Pitts MD MTDD
[2019-05-12] MEDS ORDERED: [UNRECOGNIZED DRUG - OTHER] IV ONE (15:50)
[2019-05-12] MEDS ORDERED: DIFLUCAN IV ONE (15:50)
[2019-05-12] MEDS ORDERED: VANCOMYCIN IV PER PHARMACY MISC SCH (16:00)
--- NOTE | 2019-05-12 16:55 | Diag Imaging Result Doc PS360 ---
EXAM: CT ABD/PELVIS W/IV CONT ONLY INDICATION: suspected intra-abdominal infection/anastomotic leak TECHNIQUE: This exam was performed using automated exposure control, adjustment of mA or kV according to patient size, and/or use of iterative reconstruction technique. COMPARISON: None. FINDINGS: There are calcified pleural plaques at the lung bases. There is trace pleural fluid at the left lung base. There are ventral abdominal wall skin alejandra indicating a recent laparotomy. There are droplets of postsurgical gas underlying the incision site. There is a loculated collection of fluid and gas that abuts the esophagojejunostomy anastomosis in the left upper quadrant suspicious for abscess or anastomotic leak. The fluid does appear to be loculated and tracks laterally around the spleen. There is also enhancement at its periphery, which is suggestive of an abscess. It measures approximately 12.8 x 3.9 cm axially. The liver and gallbladder are unremarkable. The pancreas, adrenal glands, and kidneys are unremarkable. There is a small amount of gas in the urinary bladder lumen, likely from recent catheterization. The urinary bladder is unremarkable, otherwise. There is uncomplicated diverticulosis coli. There is no evidence of bowel obstruction. There is no evidence of acute osseous abnormality. IMPRESSION: Collection of loculated fluid and gas abutting the anastomosis in the upper abdomen on the left that is tracking around the spleen. This is suspicious for abscess or anastomotic leak. Electronically signed by Vladislav Noe 05/12/2019 4:52 PM
--- NOTE | 2019-05-12 16:58 | Diag Imaging Result Doc PS360 ---
EXAM: CT ABDOMEN ORAL CONTRAST ONLY INDICATION: evaluate for leak at Esophagojejunostomy TECHNIQUE: This exam was performed using automated exposure control, adjustment of mA or kV according to patient size, and/or use of iterative reconstruction technique. COMPARISON: 05/12/2019 FINDINGS: Oral barium contrast was administered to evaluate for potential anastomotic leak at the esophagojejunostomy site that was discovered on the prior CT of the abdomen and pelvis performed a couple of hours before. The contrast fills the bowel adjacent to the collection of gas and fluid seen on the recent prior study. However, there is no contrast extravasation to indicate an anastomotic leak. This collection probably represents an abscess as such. Otherwise, the abdomen and pelvis are essentially stable as compared to the very recent previous study. IMPRESSION: No evidence of abnormal contrast extravasation at the esophagojejunostomy anastomosis as described. Electronically signed by Vladislav Noe 05/12/2019 4:55 PM
[2019-05-12] MEDS ORDERED: VANCOMYCIN 2,200 MG in NS 500 ML IV ONE (17:00)
[2019-05-12] MEDS: ZOSYN 3.375 GM in NS 50 ML IV SCH ×2 (17:10→21:32)
[2019-05-12] MEDS ORDERED: COUMADIN PO SCH (21:00)
[2019-05-12] MEDS: MIRALAX PO SCH (21:31)
[2019-05-13] MEDS: HUMALOG SUBQ SCH ×4 (04:06→21:25)
[2019-05-13] MEDS: ZOSYN 3.375 GM in NS 50 ML IV SCH ×4 (04:06→22:06)
[2019-05-13 05:58] LABS: BASO# 0.09 X1000 (0.0-0.2); BASO% 0.4 % (0.0-0.8); EOS# 0.23 X1000 (0.0-0.7); HEMATOCRIT 27.5 % (42.0-52.0); HEMOGLOBIN 8.8 g/dL (14.0-18.0); IMM GRAN# 0.78 X1000 (0.0-0.04); IMM GRAN% 3.4 % (0.0-0.5); LYMPH# 1.88 X1000 (1.2-3.4); LYMPH% 8.1 % (20.5-51.1); MCH 29.8 PG (27-31); MCV 93.2 FL (81-99); MONO# 1.61 X1000 (0.11-0.59); MONO% 6.9 % (1.7-9.3); MPV 9.5 FL (7.4-10.4); NEUT# 18.68 X1000 (1.4-6.5); NEUT% 80.2 % (42.2-75.2); PLT 596 X1000 (130-400); RBC 2.95 XMIL (4.7-6.1); RDW 13.9 % (11.5-14.5); WBC 23.27 X1000 (4.8-10.8)
[2019-05-13 06:22] LABS: AGAP 11; ALB/GLOB RATIO 1.1; ALBUMIN 3.2 g/dL (3.5-5.0); ALKALINE PHOSPHATASE 272 U/L (32-122); BUN 19 mg/dL (8-22); CALCIUM 8.3 mg/dL (8.8-10.2); CHLORIDE 92 mmol/L (98-107); COSMO 263; CREATININE 0.9 mg/dL (0.7-1.2); ESTIMATED GFR > 60; GLUCOSE 163 mg/dL (70-104); GOT 19 U/L (10-34); GPT 61 U/L (10-44); MAGNESIUM 2.1 mg/dL (1.5-2.7); PHOSPHORUS 4.2 mg/dL (2.7-4.5); PREALBUMIN 12.4 mg/dL (20-40); SODIUM 128 mmol/L (136-145); TCO2 25 mmol/L (25-35); TOTAL BILIRUBIN 0.33 mg/dL (0.20-1.00); TOTAL PROTEIN 6.2 g/dL (6.3-8.3)
[2019-05-13] MEDS: VANCOMYCIN 1,500 MG in NS 250 ML IV SCH ×2 (06:23→17:13)
--- NOTE | 2019-05-13 06:34 | GENERAL SURGERY PROGRESS NOTE ---
DATE: 05/13/2019 SUBJECTIVE: The patient is doing well. We did get a CT scan yesterday, first without p.o. contrast, the second one with, because of his leukocytosis. There was some concern that he might be having a leak, although we did not demonstrate that with the p.o. contrast. He seems to be doing well. We did start him on IV antibiotics and IV antifungals. OBJECTIVE: Vital Signs: The patient is currently afebrile. His vital signs stable. General: No acute distress. Cardiovascular: Regular rate and rhythm. Lungs: Grossly clear. Abdomen: Soft, appropriately tender. Jejunostomy tube is undergoing currently without issue. LABORATORY: White blood cell count 23, hematocrit 27, platelet count 596,000. ASSESSMENT AND PLAN: A 58-year-old gentleman currently postoperative day #10 for total gastrectomy. Postoperative state: At this time his white blood cell count has still gone up and we have just started him on IV antibiotics. There may be an abscess noted on the CT scan, but there was no obvious leak. His hematocrit has gone down a little bit and we will need to keep a close eye on this. May need to consider transfusion in the near future if it continues. No obvious signs of bleeding noted. He has not had any red stool, but he is having bowel movements. We will continue current treatment, continue to monitor him. He seems clinically to be doing well. We will need to keep him in the hospital until we get some signs of his leukocytosis improving. cc: MD Elias Holder MD
[2019-05-13 06:38] LABS: LYMPHS 8 % (21-51); MONO 5 % (1-9); SEGS 87 % (42-75)
[2019-05-13 09:03] LABS: INR 1.16
[2019-05-13] MEDS: ASPIRIN PO SCH (09:12)
[2019-05-13] MEDS: MIRALAX PO SCH ×2 (09:15→22:05)
--- NOTE | 2019-05-13 11:04 | PROGRESS NOTE ---
DATE: 05/13/2019 SUBJECTIVE: I have seen and examined Mr. Vergara this morning. He refers to be doing well. He was actually sitting on the bed and the mom was at the bedside. He said he has been having some low-grade fevers and he has been having pain, especially on the left side of the abdomen. OBJECTIVE: Vital signs: Blood pressure is 114/60, pulse of 78, respiration is 18, temperature 99.5 degrees. The patient has a T-max of 100 degrees yesterday at 16:00. General: Mr. Vergara is a 58-year-old gentleman. He was sitting in a chair, no distress. HEENT: Mucosa is pink and moist. Anicteric. Acyanotic. Neck: Supple. There is a central line in the right IJ. Chest: Good air entry bilaterally. No crepitations. No rhonchi. Cardiovascular: Regular rate and rhythm. Gastrointestinal: Abdomen is soft, minimally tender around the jejunostomy tube and to the left side. There is a midline incision which is well affronted with surgical clips. Bowel sounds present. Extremities: No pedal edema. Central nervous system: Patient is awake, alert, and oriented. INTAKE AND OUTPUT: Urine output was about 3050. It is currently positive balance. He only ate about 25% of his meals last night. He had 2 bowel movements yesterday. MEDICATIONS: Have all been reviewed. He is on Zosyn, vancomycin, and Diflucan. Today is day 1. IMAGING: The patient also had a CT scan of the abdomen done yesterday which shows a collection of loculated fluid and gas abutting the anastomosis in the upper abdomen, the left, that is tracking around the spleen. This is suspicious for abscess. A repeat CT scan with contrast, rule out leaking from the anastomosis. ASSESSMENT: 1. 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 Patient is status post total gastrectomy and Candace-en-Y esophagojejunal anastomosis. Today is day 10 postoperatively. 2. Severe peripheral vascular disease. Patient is status post multiple femoral- femoral bypasses. He is on chronic Coumadin therapy. 3. Acute hypoxemia secondary to atelectasis. The patient is still on supplemental oxygen. We will continue with breathing with incentive spirometer. 4. Sepsis secondary to intra-abdominal abscess. I have discussed with both the surgeon and Interventional Radiology. We are going to try and see if the patient can undergo a CT-guided draining of the intra-abdominal loculated fluid. Plan: In general, Mr. Vergara is doing well. WBC has gone up. He has been having low-grade fever and left-sided abdominal pain. Imaging studies suggest that he has intra- abdominal abscess. I have discussed with both the surgeon and Interventional Radiology and we are going to try and see if he can undergo a CT-guided drainage of the intra-abdominal abscess. Mr. Vergara is on chronic Coumadin. I think he got a dose last night. His INR, however, this morning is 1.16, and I think it is it reasonable for the procedure to be done. I have communicated the result also to Dr. Blevins. cc: Elias Pitts MD MTDD
[2019-05-13] MEDS: DULCOLAX PR SCH (13:32)
--- NOTE | 2019-05-13 14:16 | Diag Imaging Result Doc PS360 ---
EXAM: CT GUIDE ABD DRAINAGE W/CATH 05/13/2019 HISTORY: abdomen abscess TECHNIQUE: CT-guided drainage of left upper quadrant abscess COMMENT: The risks and benefits of the procedure including the possibility of bleeding, infection, reaction to lidocaine or puncture of hollow viscus or the spleen were discussed with the patient and he agreed to the procedure. Following sterile preparation the skin and administration of 1% lidocaine to the skin and deeper soft tissues, a 10.2-Beninese cope loop catheter was inserted by trocar technique anterior to the spleen and posterior to the splenic flexure of the colon in the left midaxillary line with its tip in the collection which was demonstrated on previous CT examinations adjacent to the anastomosis of the esophagus and Candace-en-Y loop. The catheter also passes through some more serous appearing collection seen in the left upper quadrant which may be result of postsurgical seroma formation. This partially drained during placement of the catheter, however when the catheter was finally placed with the cope loop in the abscess the drainage was of a more purulent appearance. The patient reports symptomatic relief following placement of the catheter. IMPRESSION: Successful percutaneous drainage of abscess as described. Electronically signed by Isidoro Blevins 05/13/2019 2:14 PM
[2019-05-13] MEDS: DIFLUCAN 400 MG/NS 400 MG/200 ML IVPB IV SCH (16:33)
[2019-05-14] MEDS: ZOSYN 3.375 GM in NS 50 ML IV SCH ×5 (04:00→21:30)
[2019-05-14] MEDS: HUMALOG SUBQ SCH ×3 (04:00→16:29)
[2019-05-14] MEDS: VANCOMYCIN 1,500 MG in NS 250 ML IV SCH (05:06)
[2019-05-14 06:07] LABS: AGAP 12; ALB/GLOB RATIO 1.5; ALBUMIN 3.3 g/dL (3.5-5.0); ALKALINE PHOSPHATASE 255 U/L (32-122); BUN 18 mg/dL (8-22); CALCIUM 8.3 mg/dL (8.8-10.2); CHLORIDE 97 mmol/L (98-107); COSMO 273; CREATININE 0.9 mg/dL (0.7-1.2); ESTIMATED GFR > 60; GLUCOSE 150 mg/dL (70-104); GOT 15 U/L (10-34); GPT 49 U/L (10-44); HEMATOCRIT 26.8 % (42.0-52.0); HEMOGLOBIN 8.4 g/dL (14.0-18.0); MCH 29.7 PG (27-31); MCHC 31.3 g/dL (33-37); MCV 94.7 FL (81-99); MPV 9.7 FL (7.4-10.4); POTASSIUM 4.7 mmol/L (3.5-5.1); RBC 2.83 XMIL (4.7-6.1); SODIUM 134 mmol/L (136-145); TCO2 25 mmol/L (25-35); TOTAL BILIRUBIN 0.35 mg/dL (0.20-1.00); TOTAL PROTEIN 5.5 g/dL (6.3-8.3); WBC 18.62 X1000 (4.8-10.8)
--- NOTE | 2019-05-14 06:08 | GENERAL SURGERY PROGRESS NOTE ---
DATE: 05/14/2019 SUBJECTIVE: The patient is doing okay. He did go down to get a CT-guided drainage where they got some purulence noted. The microbiology is showing gram-positive cocci. OBJECTIVE: Vital Signs: The patient is currently afebrile. His vital signs are stable. General: No acute distress. Cardiovascular: Regular rate and rhythm. Lungs: Grossly clear. Abdomen: Soft. Appropriately tender. Drain in place with what looks like purulent drainage. Tube feeds going currently. ASSESSMENT AND PLAN: A 58-year-old gentleman, currently postoperative day #11 from total gastrectomy. Postoperative state: At this time the patient seems to be doing okay. We get the fluid drained around his anastomosis and his purulence. We will start a calorie count to assess how much p.o. intake he is getting and if it seems to be okay, may consider taking down his tube feeds, but in the meantime we will keep him on his tube feeds and assess. cc: MD Elias Holder MD
[2019-05-14] MEDS: ASPIRIN PO SCH (09:03)
[2019-05-14] MEDS: MIRALAX PO SCH ×2 (09:03→20:14)
[2019-05-14] MEDS: DULCOLAX PR SCH (09:06)
--- NOTE | 2019-05-14 10:29 | PROGRESS NOTE ---
DATE: 05/14/2019 SUBJECTIVE: I have seen and examined Mr. eVrgara today. Mr. Vergara refers to be feeling a whole lot better. Denies any fevers. He said that the upper left abdominal discomfort has significantly improved since the drainage. It is documented that the patient had about 215 drained overnight. OBJECTIVE: His current vitals show blood pressure 106/63, pulse of 99, respirations 18, and temperature 97.9 degrees.General: Mr. Vergara is a 58-year-old gentleman. He is in bed in no distress. HEENT: Mucosa is pink and moist. Anicteric. Acyanotic. Neck: Supple. Chest: Good air entry bilaterally. There were no crepitations. No rhonchi. Cardiovascular: Regular rate and rhythm. No murmurs, no rubs, no gallops. GI: Abdomen was soft, generously distended, but nontender. There is an accordion drain in the lateral left side of the abdomen. There is also a jejunostomy tube in place. There is a midline incision which is well affronted with surgical clip. Bowel sounds present. 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 The patient had a bowel movement this morning. MICROBIOLOGY: Gram stain from the abdominal fluid is showing gram-positive cocci. IMAGING STUDIES: The patient underwent a CT-guided biopsy draining of the abdomen yesterday. The accordion drain is still in place. ASSESSMENT: 1. Moderately differentiated gastric adenocarcinoma with metastasis to lymph node associated with perineural invasion. The patient is status post gastrectomy and Candace-En-Y esophagojejunal anastomosis. Today is day 11 postop. 2. Intra-abdominal postsurgical abscess formation. The patient is status post CT-guided drain. We are going to continue the drain with the accordion, and follow up with further recommendations from surgery. 3. Acute hypoxemic respiratory failure secondary to atelectasis, improved. 4. Sepsis secondary to intra-abdominal abscess, improved. 5. History of severe peripheral vascular disease status post multiple femoral femoral bypasses in the past. Patient is on chronic Coumadin therapy. We are going to start him back on his treatment. cc: Elias Pitts MD
[2019-05-14] MEDS: DIFLUCAN 400 MG/NS 400 MG/200 ML IVPB IV SCH (16:32)
[2019-05-14] MEDS: VANCOMYCIN 1,750 MG in NS 250 ML IV SCH (18:45)
[2019-05-14] MEDS: COUMADIN PO SCH (20:12)
[2019-05-15] MEDS: ZOSYN 3.375 GM in NS 50 ML IV SCH ×5 (03:49→21:54)
[2019-05-15] MEDS: HUMALOG SUBQ SCH ×5 (03:49→21:06)
[2019-05-15] MEDS: VANCOMYCIN 1,750 MG in NS 250 ML IV SCH ×3 (04:28→18:52)
[2019-05-15 07:09] LABS: HEMATOCRIT 25.7 % (42.0-52.0); HEMOGLOBIN 8.3 g/dL (14.0-18.0); MCH 30.7 PG (27-31); MCHC 32.3 g/dL (33-37); MCV 95.2 FL (81-99); MPV 9.6 FL (7.4-10.4); RBC 2.7 XMIL (4.7-6.1); RDW 13.9 % (11.5-14.5); WBC 16.06 X1000 (4.8-10.8)
[2019-05-15 07:41] LABS: AGAP 12; ALBUMIN 3.3 g/dL (3.5-5.0); BUN 17 mg/dL (8-22); CALCIUM 8.4 mg/dL (8.8-10.2); CHLORIDE 100 mmol/L (98-107); COSMO 275; CREATININE 0.8 mg/dL (0.7-1.2); ESTIMATED GFR > 60; GLUCOSE 152 mg/dL (70-104); PHOSPHORUS 4.6 mg/dL (2.7-4.5); POTASSIUM 4.9 mmol/L (3.5-5.1); SODIUM 135 mmol/L (136-145); TCO2 23 mmol/L (25-35)
[2019-05-15] MEDS: MIRALAX PO SCH ×2 (10:54→21:55)
[2019-05-15] MEDS: DULCOLAX PR SCH (10:54)
[2019-05-15] MEDS: ASPIRIN PO SCH (10:54)
--- NOTE | 2019-05-15 16:30 | PROGRESS NOTE ---
DATE: 05/15/2019 SUBJECTIVE: I have seen and examined Mr. Vergara today. Mr. Vergara refers to be feeling a whole lot better. Denies any new complaints. Objective: Vitals are stable. Blood pressure 113/60, pulse of 62, respirations 16, temperature 98 degrees. General: Mr. Vergara is a 58-year-old gentleman. He is in bed, no distress. HEENT: Mucosa is pink and moist. Anicteric. Acyanotic. Neck: Supple. Chest: Clear to auscultation. No crepitations. No rhonchi. Cardiovascular: Regular rate and rhythm. GI: Abdomen was soft, minimally distended, but nontender. There is an accordion drain in the lateral left side of the abdomen. There is also a jejunostomy tube in place. There is a midline incision which is well affronted. No signs of infection. Extremities: No pedal edema. 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 LABORATORY DATA: WBC is down to 16.06, hemoglobin is 8.3, platelet count of 683,000. Chemistry is also reviewed, unremarkable. So far, cultures are still pending. The patient had a total of 100 MICROBIOLOGY: So far, cultures are still pending. The patient had a total of 100 mL drainage in the accordion drain yesterday. ASSESSMENT: 1. Moderately differentiated gastric adenocarcinoma with metastasis to lymph node associated with perineural invasion. Patient is status post total gastrectomy and Candace-en-Y esophagojejunal anastomosis. Today is day 12. 2. Intra-abdominal postsurgical abscess. The patient is status post CT-guided drain. We are still pending the cultures. 3. Acute hypoxemic respiratory failure secondary to atelectasis, improved. 4. Sepsis secondary to intra-abdominal abscess during the hospital course. Improved. 5. History of peripheral vascular disease status post multiple femoral-femoral bypasses in the past. Patient is on chronic Coumadin. So in general the patient's culture from the abdomen abscess is growing gram-positive cocci. However, the blood culture which was done on the 18 is showing a gram-negative nadnini. I am not 100% sure. We just have to kind of continue with the current med medications until we have definitive culture results and alter the antibiotics accordingly. cc: Elias Pitts MD
[2019-05-15] MEDS: DIFLUCAN 400 MG/NS 400 MG/200 ML IVPB IV SCH (16:45)
--- NOTE | 2019-05-15 17:38 | GENERAL SURGERY PROGRESS NOTE ---
DATE: 05/15/2019 SUBJECTIVE: He states that he feels okay. Some serous drainage from his wound. No fevers. No tachycardia. He is tolerating some p.o. His tube feeds are 30. OBJECTIVE: Vital Signs: Blood pressure 125/76. Abdomen: Soft. Midline incision intact with no cellulitis. There is some serous drainage from the lower aspect of his wound. Laboratory Data: White count is reviewed hematocrit is 25, creatinine is 0.8, glucose is 150s to 170s. His drain does have some purulent output through it. ASSESSMENT AND PLAN: A 58-year-old gentleman status post total gastrectomy. He had an abscess near the anastomosis. Drain is placed. Dr. Munoz has given him p.o. and tube feeds at 30. I have encouraged him go slow with eating, avoid distention. We will monitor his wound. I do not see obvious signs of infection. He is on antibiotics currently. cc: MD Elias Robles MD MTDD
[2019-05-15] MEDS: COUMADIN PO SCH (20:18)
[2019-05-16] MEDS: ZOSYN 3.375 GM in NS 50 ML IV SCH ×6 (03:43→23:00)
[2019-05-16] MEDS: HUMALOG SUBQ SCH ×4 (03:51→23:00)
[2019-05-16] MEDS: VANCOMYCIN 1,750 MG in NS 250 ML IV SCH ×3 (04:22→20:43)
[2019-05-16] MEDS: ASPIRIN PO SCH (09:03)
[2019-05-16] MEDS: DULCOLAX PR SCH (09:19)
[2019-05-16] MEDS: MIRALAX PO SCH ×2 (09:19→20:45)
--- NOTE | 2019-05-16 12:30 | GENERAL SURGERY PROGRESS NOTE ---
DATE: 05/16/2019 SUBJECTIVE: No fevers. No tachycardia. He is tolerating p.o., as well as tube feeds at 30. His percutaneous drain remains purulent and a moderate amount of output. Glucose is 210 this morning, otherwise no new labs. ASSESSMENT AND PLAN: A 58-year-old gentleman status post total gastrectomy and percutaneous drain and abscess. Will continue drain care, antibiotics, enteral supplementation via his jejunostomy tube. Dr. Munoz will be back tomorrow. cc: MD Elias Robles MD
--- NOTE | 2019-05-16 14:17 | PROGRESS NOTE ---
DATE: 05/16/2019 SUBJECTIVE: I have seen and examined Mr. Vergara today. Mr. Vergara refers to be doing remarkably well. He said his drain in 24 hours was 200 mL. OBJECTIVELY: Current vitals: Blood pressure is 108/79, pulse of respirations 16, temperature 97.9 degrees. Patient is tolerating his meals and also had bowel movement yesterday. General: Mr. Vergara is a 58-year-old gentleman. He is in bed, no distress. HEENT: Mucosa is pink and moist. Anicteric. Acyanotic. Neck: Supple. Chest: Clear to auscultation. There was no crepitations, no rhonchi. Cardiovascular: Regular rate and rhythm. No murmurs, no rubs. No gallop. GI: Abdomen was soft, minimally distended, but nontender. There is a jejunostomy tube in the left upper quadrant. There is also an accordion drain in the lateral lower chest. There is an midline incision which is well affronted. No signs of infection. 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 No focal deficit. LABORATORY DATA: No laboratory data for this morning. ASSESSMENT: 1. Intra-abdominal abscess after surgical procedure. Patient is status post CT-guided drain. The accordion drain is still in place. The culture is showing gram-positive cocci. We are still pending the ID and sensitivity. 2. Moderately differentiated gastric adenocarcinoma with metastasis to lymph node associated with perineural invasion. Patient is status post gastrectomy and Candace-en-Y esophagojejunal anastomosis, today is day 13 postop. 3. Acute hypoxemic respiratory failure secondary to atelectasis, resolved. 4. Sepsis secondary to intra-abdominal abscess, improved. 5. History of peripheral vascular disease status post multiple femoral-femoral bypasses in the past. Patient is on chronic Coumadin therapy. 6. Gram-negative nandini in 1 of the blood cultures, not 100% sure. We are going to wait for the ID and sensitivity. Patient is currently on Zosyn which should cover anyway, but we will wait tomorrow for all the culture result to be finalized before we make changes to the current antimicrobial coverage. cc: Elias Pitts MD
[2019-05-16] MEDS: DIFLUCAN 400 MG/NS 400 MG/200 ML IVPB IV SCH (15:33)
[2019-05-16] MEDS: COUMADIN PO SCH (20:44)
[2019-05-17] MEDS: ZOSYN 3.375 GM in NS 50 ML IV SCH (03:25)
[2019-05-17] MEDS: HUMALOG SUBQ SCH ×3 (03:26→15:30)
--- NOTE | 2019-05-17 06:00 | GENERAL SURGERY PROGRESS NOTE ---
DATE: 05/17/2019 SUBJECTIVE: Patient seems to be doing well. His drain output has decreased. He is tolerating his feeds. He is tolerating p.o. OBJECTIVE: Vital Signs: Patient is currently afebrile. His vital signs are stable. General: No acute distress. Cardiovascular: Regular rate and rhythm. Lungs: Grossly clear. Abdomen: Soft. Appropriately tender. Incision is healing well. ASSESSMENT AND PLAN: A 58-year-old gentleman currently postoperative day #14 from a total gastrectomy. Postoperative state at this time. He is doing well. We are awaiting full sensitivities from his drainage, but is gram-positive cocci. He does have one possible blood culture that is positive, but he is on Zosyn. Unsure to know what to do clinically with this at the time, but we will keep him on the Zosyn. Overall, his white blood cell count seems to be trending down. He seems to be doing well. We got a calorie count undergoing. I think we are getting close to discharge. We will get the nurses to remove his alejandra. We will keep him on a full liquid diet for right now until he at least sees me in the office. cc: MD Elias Holder MD
[2019-05-17 07:25] LABS: HEMATOCRIT 24.8 % (42.0-52.0); HEMOGLOBIN 7.6 g/dL (14.0-18.0); MCH 29.1 PG (27-31); MCHC 30.6 g/dL (33-37); MPV 9.2 FL (7.4-10.4); PLT 958 X1000 (130-400); RBC 2.61 XMIL (4.7-6.1); RDW 13.9 % (11.5-14.5); WBC 14.87 X1000 (4.8-10.8)
[2019-05-17] MEDS ORDERED: NS 500 ML IV ONE (08:15)
[2019-05-17 08:35] LABS: AGAP 13; ALBUMIN 3.1 g/dL (3.5-5.0); BUN 19 mg/dL (8-22); CALCIUM 8.8 mg/dL (8.8-10.2); CHLORIDE 102 mmol/L (98-107); COSMO 282; CREATININE 0.7 mg/dL (0.7-1.2); ESTIMATED GFR > 60; GLUCOSE 171 mg/dL (70-104); PHOSPHORUS 3.9 mg/dL (2.7-4.5); POTASSIUM 4.5 mmol/L (3.5-5.1); SODIUM 138 mmol/L (136-145); TCO2 23 mmol/L (25-35)
[2019-05-17] MEDS: VANCOMYCIN 1,750 MG in NS 250 ML IV SCH (10:16)
[2019-05-17] MEDS: MIRALAX PO SCH (10:18)
[2019-05-17] MEDS: DULCOLAX PR SCH (10:18)
[2019-05-17] MEDS: ASPIRIN PO SCH (10:18)
[2019-05-17] MEDS ORDERED: LEVAQUIN PO ONE (10:46)
[2019-05-17 11:39] LABS: INR 1.96; PROTIME 22.8 Seconds (11.0-16.0)
[2019-05-17 11:42] LABS: BANDS 8 % (0-1); LYMPHS 16 % (21-51); MONO 2 % (1-9); SEGS 74 % (42-75)
[2019-05-17 11:43] LABS: HYPOCHROM 1+; POIKILOCYTOSIS 1+
[2019-05-17 11:48] LABS: LARGE PLATELETS 1+
--- NOTE | 2019-05-17 11:57 | PROGRESS NOTE ---
DATE: 05/17/2019 SUBJECTIVE: I have seen and examined Mr. Vergara today. Mr. Vergara refers to be doing well. No new complaints. He said his alejandra have all been removed. OBJECTIVE: Vital Signs: Blood pressure is 128/70, pulse of 67, respirations are 18, temperature is 97.9 degrees. General Examination: Mr. Vergara is a 58-year-old, gentleman. He is in bed. No distress. HEENT: Mucosa is pink and moist. Anicteric. Acyanotic. Neck: Supple. Chest: Clear to auscultation. There were no crepitations. No rhonchi. Cardiovascular: Regular rate and rhythm. No murmurs, no rubs, no gallops. GI: Abdomen is soft. There is a jejunostomy tube in place in the left upper quadrant. There is an accordion drain also in the left lateral lower chest wall. There is a midline surgical incision which looks clean. Bowel sounds present. GARDE MANAGER: The patient is awake, alert, and oriented. There is no focal deficit. Laboratory Data: WBC is down to 14.87, hemoglobin is 7.6, platelet count of 958,000. Chemistry is also reviewed. It is all completely within normal range. The patient's blood culture has been 48 hours negative. One of them is showing gram-negative nandini. I called the microbiology department and they told me that gram-negative nandini that was seen on stain apparently is really not growing anything. I am not sure if that was a contaminant. The second one said no growth. The abdomen culture is showing Streptococcus constellatus which is a form of Streptococcus viridans. ASSESSMENT: 1. Intra-abdominal Streptococcus viridans abscess after intra-abdominal surgical procedure. The patient is status post CT-guided drain. The accordion drain is still in place. The patient had a total of 75 mL documented yesterday. We are going to continue to monitor this. 2. 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 The patient is status post gastrectomy and Candace-en-Y esophagojejunal anastomosis. Today is day 14. 3. Acute hypoxemic respiratory failure during the hospital course secondary to atelectasis, resolved. 4. Sepsis during the hospital course due to intra-abdominal abscess, resolved. 5. History of peripheral vascular disease, status post multiple femorofemoral bypasses in the past. Patient is on chronic Coumadin. 6. Gram-negative nandini in one of the cultures. I have called and I have been notified that it did not grow anything. PLAN: In general, I think Mr. Vergara is doing a lot better. He is clinically stable. I think he is nearing his baseline for discharge. Unfortunately, his hemoglobin declined. This morning, it is 7.6. I think it is just all related to the acute medical illness. We are going to give him a unit of blood to top him up. He is not showing any signs of overt bleeding. We are also going to switch his antibiotics to ceftriaxone while he is in the hospital. Ideally, he would need to be on IV antibiotics for a total of 14 days but Mr. Vergara states that he does not want to go home with IV access and IV antibiotics. I think an oral alternative is also possible. Levaquin could have been an alternative. Unfortunately, he is on Coumadin, which has a severe drug interaction with this. We have recommended that he is sent home on cefdinir which is a third-generation cephalosporin and it will work as well as a substitute for the ceftriaxone. From a medical standpoint, we think Mr. Vergara can be discharged whenever surgery is okay with the plan. I have discussed the plan also with Dr. Munoz. cc: Elias Pitts MD [facility]
[2019-05-17] MEDS ORDERED: NS 0 ML ONE (12:13)
[2019-05-17 12:19] LABS: IRON SATURATION 19 %; TIBC 222 ug/dL; TOTAL IRON 43 ug/dL (53-167); UNBOUND IRON 179 ug/dL (112-346)
[2019-05-17] MEDS: ROCEPHIN 2 GM in NS 50 ML IV SCH (12:54)
--- NOTE | 2019-05-17 16:15 | ECHO REPORT ---
ORDER DATE: 05/17/2019 ECHOCARDIOGRAPHIC MEASUREMENTS: 1. Interventricular septum 1.1 cm. 2. Left ventricular posterior wall 1.0 cm. 3. Diastolic diameter 5.1 cm. 4. Left atrium 3.4 cm. 5. Aorta 3.5 cm. 6. Aortic valve leaflets were trileaflet. 7. Mitral valve was normal. 8. Tricuspid valve was normal. 9. Pulmonic valve was normal. 10. Peak velocity across the aortic valve less than 2 m/sec. There is no aortic stenosis or regurgitation. 11. Normal left ventricular cavity size. Estimated ejection fraction of 60%. 12. There is mild mitral regurgitation. 13. Mild tricuspid regurgitation. Peak velocity across the tricuspid valve was 2.6 m/sec. 14. Pulmonary artery systolic pressure of 38 mmHg. 15. There is mild mitral regurgitation. 16. There is no pericardial effusion or obvious intracardiac mass or thrombus seen. cc: MD Elias Rockwell MD
[2019-05-17] MEDS: COUMADIN PO SCH (21:16)
[2019-05-18] MEDS: HUMALOG SUBQ SCH ×4 (04:30→14:55)
[2019-05-18] MEDS: MIRALAX PO SCH ×2 (04:31→11:04)
--- NOTE | 2019-05-18 05:49 | GENERAL SURGERY PROGRESS NOTE ---
DATE: 05/18/2019 SUBJECTIVE: The patient seems to be doing okay. He did get a unit of blood yesterday because his hematocrit has trended down slightly, but he has been hemodynamically stable. His accordion drain has decreased in its output overall. OBJECTIVE: Vital Signs: The patient is currently afebrile. His vital signs are stable. General: No acute distress. Cardiovascular: Regular rate and rhythm. Lungs: Grossly clear. Abdomen: Soft, appropriately tender. Incision is healing. Accordion with some purulent drainage. LABORATORY: White blood cell count is 14 from yesterday, which trending down. INR is 1.96. ASSESSMENT AND PLAN: A 58-year-old gentleman, currently postoperative day #15 for total gastrectomy. Postoperative state: At this time, he seems to be doing well. I suspect we can transition him over to p.o. antibiotics if okay with the hospitalist. Overall, I think we can get him out of the hospital if we can get him switched over to p.o. antibiotics if it is okay with the hospitalist, if we can get home health fully arranged and we can get final tube feed recommendations. We will hopefully get him out today if not tomorrow. cc: MD Elias Holder MD
[2019-05-18 06:40] LABS: HEMATOCRIT 28.3 % (42.0-52.0); HEMOGLOBIN 9.3 g/dL (14.0-18.0); MCH 31.2 PG (27-31); MCHC 32.9 g/dL (33-37); MPV 8.8 FL (7.4-10.4); RBC 2.98 XMIL (4.7-6.1); RDW 15.2 % (11.5-14.5); WBC 14.81 X1000 (4.8-10.8)
[2019-05-18 06:55] LABS: AGAP 12; ALBUMIN 3.6 g/dL (3.5-5.0); BUN 17 mg/dL (8-22); CALCIUM 9.1 mg/dL (8.8-10.2); CHLORIDE 100 mmol/L (98-107); COSMO 276; CREATININE 0.8 mg/dL (0.7-1.2); ESTIMATED GFR > 60; GLUCOSE 148 mg/dL (70-104); PHOSPHORUS 3.9 mg/dL (2.7-4.5); POTASSIUM 4.3 mmol/L (3.5-5.1); SODIUM 136 mmol/L (136-145); TCO2 24 mmol/L (25-35)
[2019-05-18] MEDS ORDERED: LEVAQUIN PO SCH (09:00)
[2019-05-18] MEDS ORDERED: VENOFER 300 MG in NS 250 ML IV ONE (10:52)
[2019-05-18] MEDS: ROCEPHIN 2 GM in NS 50 ML IV SCH (11:01)
[2019-05-18] MEDS: DULCOLAX PR SCH (11:04)
[2019-05-18] MEDS: ASPIRIN PO SCH (11:04)
[2019-05-18] MEDS ORDERED: OMNICEF PO SCH (11:45)
--- NOTE | 2019-05-18 12:10 | PROGRESS NOTE ---
DATE: 05/18/2019 Mr. Vergara presented, I think, on 04/22/2019. A 58-year-old who presented, discussed diagnostic procedures and results. Patient had endoscopy with tattooing. Diagnostic test performed on 04/20/2019. There was a medical history of other gastric cancer. Following diagnostic procedure, findings, ulcer corresponds with known adenocarcinoma located approximately in the lesser curvature just a couple centimeters away from the GE junction. PAST MEDICAL HISTORY: Status post laparoscopy, history of gastric bleed, and gastric adenocarcinoma. ADMISSION: His plan was to get a central venous catheter placement, ultrasound guidance, and diagnostic laparoscopy, total gastrectomy with Candace-en-Y reconstruction, jejunostomy to be open with feeding tube insertion. The patient was followed by Dr. Munoz and at this time, wanted to continue current treatment. Nasogastric tube is out and the plan was to leave it out, and the plan was to get an upper endoscopy. He was postoperative gastrectomy and was doing well. He was on a full liquid diet and this was advanced. Surgery was done on 05/03/2019, ultrasound-guided right internal jugular vein catheter line placement, diagnostic laparoscopy for staging purposes, open mobilization of splenic flexure, open total gastrectomy with Candace-en-Y, esophagojejunal anastomosis, and open jejunostomy. CT of the abdomen on 05/12/2019, no evidence of abnormal contrast extravasation at the esophagojejunostomy anastomosis. The patient continued to improve. He had CT scanning on 05/13/2019. CT-guided drainage of left upper quadrant abscess, which was successful. The patient doing well. This is today, 05/18/2019, postoperative day #15 for total gastrectomy. Seems to be doing well. Suspect can transition over to p.o. antibiotics and get him out of the hospital. See if we can get home health to help and get final feeding tube recommendations. PHYSICAL EXAMINATION: Today, awake and alert. He is anxious to go home. He remains afebrile, temperature 98.0 degrees, pulse 70, respirations 18, blood pressure 130/73. Pupils are equal and round. Lungs are clear in all lung carroll. Cardiovascular Examination: Regular rhythm and rate without murmur or S3. Abdomen is soft. Skin is warm and dry. Incision looks good, midline incision. Urine output was 3600 mL. CURRENT MEDICATIONS: He is on warfarin 6 mg at bedtime, aspirin 81 mg a day, Dulcolax suppository 10 mg per rectum daily p.r.n., Bentyl 10 mg per G-tube t.i.d. p.r.n., and MiraLAX 17 g p.o. b.i.d. He is on ceftriaxone 2 mg q.24 hours, Levaquin 500 mg was just given one time. His micro from the abscess grew out Streptococcus constellatus. It is sensitive to ceftriaxone, sensitive to clindamycin, and sensitive to tetracycline as well, and sensitive to Levaquin so we will let him go home on 2 weeks of Levaquin at 500 mg p.o. daily when surgery is ready to let him go. LABORATORY DATA: From this morning, white count 14,810, hematocrit is 28, platelet count is 954,000. Sodium 136, potassium 4.3, chloride 100, bicarb 24, BUN 17, creatinine 0.8. Blood sugars 150, 131, 148, 227. His prothrombin time was 22.8 which is which is optimal. ASSESSMENT AND PLAN: 1. Intra-abdominal Streptococcus viridans abscess after an intra-abdominal surgical procedure and drainage, CT-guided. Accordion drain is, I think, in place at this time. 2. Multi-differentiated gastric adenocarcinoma metastasis to the lymph nodes associated with perineural invasion. The patient is status post gastrectomy, Candace-en-Y, esophagojejunal anastomosis. This is postoperative day #15. 3. Acute hypoxemic respiratory failure during the hospital course secondary to atelectasis, which has resolved. 4. Sepsis during the hospital course due to intra-abdominal abscess and this has resolved. We will change him to oral antibiotics. 5. History of peripheral vascular disease, status post multiple femoral, humeral bypasses in the past. The patient is on chronic Coumadin. Coumadin level is therapeutic. 6. Gram-negative nandini in one of his cultures and did not grow anything else. Plan on giving him 2 weeks of Levaquin 500 mg a day. We are watching his hemoglobin which has dropped a little bit, 7.6. I gave him one unit of packed red blood cells. I think we can switch him to Levaquin. He is on Coumadin so we will need to watch his prothrombin time. We could send him home on cefdinir and that may be a better choice so it will not interact with Coumadin. We will put him on some cefdinir instead of the Levaquin and discuss with surgery when he can go home. cc: Bernardo Sosa MD
[2019-05-18 15:44] VITALS: BP 131/98
--- NOTE | 2019-05-18 16:20 | DISCHARGE SUMMARY ---
ADMISSION DATE: 05/03/2019 DISCHARGE DATE: 05/18/2019 HISTORY: The patient underwent surgery, ultrasound-guided right internal jugular vein central line placement, diagnostic laparoscopy for staging purposes, open mobilization of splenic flexure and open total gastrectomy of the Candace-en-Y esophageal jejunal anastomosis and open jejunostomy. Hospitalists were consulted. His family doctor is Dr. Archuleta. PAST MEDICAL HISTORY: Stomach cancer, hypertension, hyperlipidemia, diabetes mellitus type 2, coronary artery disease, chronic anticoagulation, sleep apnea, cataracts, and GI bleed. I think the anticoagulation is he has peripheral vascular disease. PAST SURGICAL HISTORY: Removal of cataract x2, femoral-femoral bypass, coronary stents, left lower leg skin graft, total gastrectomy and jejunostomy. The patient was status post total gastrectomy and Candace-en-Y esophageal jejunal anastomosis and open jejunostomy and diagnostic laparoscopic staging process. He had a barium swallow on 05/05, no evidence of anastomotic leak. Hematology/Oncology was asked to see. He has a history of gastric adenocarcinoma, moderately differentiated gastric adenocarcinoma, status post total gastrectomy with jejunostomy tube placement. The patient postoperatively doing well. They recommended adjuvant 5-FU and cisplatin pending pathology. He had acute hypoxemic respiratory failure following chest x-ray with questionable pneumonia and leukocytosis with neutrophilia, likely reactive. The thrombocytosis was questionably reactive and CT of the abdomen and pelvis performed found a collection of loculated fluid and gas abutting the anastomosis of the upper abdomen on the left that was tracking around the spleen suspicious for abscess. He underwent CT drainage with a drain placed on 05/12, successful percutaneous drainage of abscess. The was patient continued on antibiotics and showed good progression and seemed to be doing well, so transitioned to p.o. antibiotics. From surgery standpoint, it was felt like he could go home. So, we will plan to discharge him home today with home health. CURRENT MEDICATIONS: Tylenol as needed, aspirin 81 mg a day, Dulcolax suppository per rectum daily as needed, and I put him on cefdinir which is Omnicef 300 mg p.o. b.i.d., which he will take for another, I think, another week. Bentyl 10 mg through G tube t.i.d. p.r.n. colon spasm and MiraLAX 17 g p.o. b.i.d. He is on Coumadin 6 mg a day and his ProTime is therapeutic. His PT was 22, INR is 1, 9.96. PLAN: He will follow up with his primary care go home with home health and we will discharge him today. cc: Bernardo Sosa MD
== END 2019-05-18 18:38 | disposition home health service (06) | DRG 326 ==
LOC: SURHOLD 05:09 → 4N 07:42 → ICU 11:03 → 2N 05-06 13:40 → 4N 05-14 17:03
PROVIDERS: ADMIT Emergency Medicine; ATTEND Surgery